=== PATIENT | female | born 1965 | race Caucasian/White ===

== ENCOUNTER 2016-05-07 03:48 | Inpatient (IN) | payer MEDICARE, OTHER ==
--- NOTE | ~2016-05-07 | PN ---
Unit #: [id number] #: [id number] Patient: SHANIKA BAEZA [id number] [facility] [address] [place] [address] [id number] MR#: [id number] NAME: SHANIKA BAEZA. ROOM: 15 Age: 50 Sex: F Admission Date: 05/07/2016 : 1965 Attending Physician: Sharath Kingsley M.D. Admitting Physician: Sharath Kingsley M.D. Primary Care Physician: Primary Care Physician Yolis DE LA VEGA PROGRESS NOTES DATE OF SERVICE 05/19/2016 DISCUSSION Ms. Shanika Baeza is a 50-year-old female seen on 05/19/2016. The patient was scheduled to be discharged today, but the patient reported that she is not able to contract for safety. The patient reported having suicidal thoughts with a plan to kill herself if discharged today. The patient's discharge was subsequently canceled. The patient unable to report any stressor. We will closely monitor the patient's mood and behavior. We will make sure that the patient is attending all the groups and stay out of her room and participate. Continue with current medication. Complete Review of Systems: Unremarkable. MENTAL STATUS EXAMINATION General Appearance: The patient dressed casually. Attention span, concentration: Fair. Oriented in place and person. Mood and affect was labile. The patient reported to racebook writer "we need to talk." Speech was rapid. Thought process: Circumstantial. Association: The patient reported having suicidal thoughts with a plan to hurt herself if discharged today. Unable to contract for safety. Denied any psychotic symptom. Recent and remote memory: Poor. Insight and judgment: Poor. DIAGNOSES 1. Major depressive disorder, recurrent, F33.2. 2. Personality disorder not otherwise specified. ASSESSMENT/PLAN Advised to continue with current programming on the inpatient unit. Recommending the patient to participate in all the programming, and we will make sure that the patient is not staying in her room during the programming hours so that she can get maximum benefit, and continue with current medication. We will give few more days, and we will make sure that the patient is not suicidal, and discharge to outpatient program. Dictated by... Sharath Kingsley M.D. SZC/bzg Unit #: [id number] #: [id number] Patient: SHANIKA BAEZA Arturo TD: 05/21/2016 08:20 JOB #: [id number] CEFERINO PROGRESS NOTES X Sharath Kingsley MD PROGRESS NOTE
--- NOTE | ~2016-05-07 | A ---
[facility] Nutrition Therapy DATE: 05/18/16 Patient: SHANIKA BAEZA Physician: CHROBYUN Address: [facility] Room/Bed: [address], Zip: [place] [address] Admit Date: 05/07/16 Date of : [birth year] Height: 5 2 Weight: [phone] NUTRITIONAL ASSESSMENT: REASON: LOS PATIENT ADMITTED FOR DEPRESSION AND SI PMH: HTN, COPD, A-FIB, DM, ASTHMA, CHF, IBS Anthropometrics: HT: 5'2", WT: 130#, BMI: 23.8, %IBW: 118 Labs: NO NEW LABS Meds: SEROQUEL, VISTARIL, NEURONTIN, DESYREL, CELEXA, ZESTRIL Assessment: CHART REVIEWED, EVENTS NOTED. PATIENT IS A 50 Y/O FEMALE ADMITTED FOR SI AND DEPRESSION. PATIENT IS CURRENTLY ON DISABILITY, STAYS IN A HOTEL, AND DENIES CURRENT SUBSTANCE ABUSE. PATIENT HAS A HX OF DIET PILLS AND METHAMPHETAMINE ABUSE. PATIENT STATED A GOOD APPETITE WITH A 10# WEIGHT LOSS X LAST SEVERAL MONTHS. WEIGHT HX PER [employer] SHOWS A STABLE WEIGHT FOR LAST 5 MONTHS, AND DOES NOT REFLECT STATED WEIGHT LOSS BY PATIENT. NURSING REPORTS CONSISTENTLY GOOD PO INTAKES. PATIENT WAS D/C'D FROM THIS FACILITY 05/06/16 AND READMITTED 05/07/16. RD ASSESSED PATIENT X4 IN LAST 3 MONTHS FOR LOS- NOTES REVIEWED. PATIENT HAS HAD MULTIPLE ADMISSIONS TO THIS FACILITY IN LAST 3 MONTHS, WITH 5 ADMISSIONS IN LAST 2 MONTHS. CURRENT PSYCH MEDS MAY CAUSE WEIGHT AND APPETITE FLUCTUATIONS. PATIENT IS ON A REGULAR DIET AND THERE ARE NO SKIN OR GI ISSUES NOTED ATT. PATIENT'S BMI IS WITHIN A HEALTHY RANGE, AND SHE IS 118% OF HER IBW. Dx: NO NUTRITION DX Intervention: 1. REGULAR DIET, 2. MEDS PER MD, 3. PSYCH Monitoring, Evaluation and Goals: 1. ADEQUATE PO INTAKES >50% OF MEALS 2. PREVENT, CORRECT MICRO/MACRO NUTRIENT DIFICIENCIES MONITOR: WEIGHTS, LABS, PO/FLUID INTAKES Recommendations: 1. CONTINUE REGULAR DIET TOLERATED 2. ENCOURAGE ADEQUATE PO AND FLUID INTAKES RD TO F/U PER PROTOCOL AND PRN R/T PATIENT NOT AT NUTRITIONAL RISK ATT [facility] DATE: 05/18/16 Patient: SHANIKA BAEZA Physician: JAYME Address: [facility] N[facility] Room/Bed: [address], Zip: [place] [address] Admit Date: 05/07/16 Date of : [birth year] Height: 5 2 Weight: [phone] Respectfully, ELIZABETH GRISSOM RD, LD [facility] cc: client file
--- NOTE | ~2016-05-07 | CO ---
Unit #: [id number] #: [id number] Patient: SHANIKA BAEZA [id number] [place] [address] [id number] MR#: [id number] NAME: SHANIKA BAEZA. ROOM: P254 Age: 50 Sex: F Admission Date: 05/07/2016 : 1965 Attending Physician: Sharath Kingsley M.D. Primary Care Physician: Primary Care Physician No Consultation Date: 05/08/2016 CONSULTATION REPORT ORDERING PROVIDER Dr. Kingsley. REASON FOR CONSULTATION Abnormal urinalysis. SUBJECTIVE The patient denies dysuria, urinary frequency, or hesitancy. She denies any hematuria, low back pain, or abdominal pain. OBJECTIVE The patient's urinalysis shows trace leukocyte esterase and 2+ blood. Her physical examination was unremarkable related to urinary tract infection. ASSESSMENT Abnormal UA. PLAN Plan is to get a urine culture and treat if necessary. Dictated by... Amparo Wilkins A.P.R.N. for Fabien Stephens/pelon TD: 05/09/2016 09:07 JOB #: [id number] CONSULTATION REPORT X AMPARO WILKINS APRN CONSULTATION REPORT
--- NOTE | ~2016-05-07 | PN ---
Unit #: [id number] #: [id number] Patient: SHANIKA BAEZA [id number] [facility] [address] [place] [address] [id number] I MR#: [id number] NAME: SHANIKA BAEZA. ROOM: P254 Age: 50 Sex: F Admission Date: 05/07/2016 : 1965 Attending Physician: Sharath Kingsley M.D. Admitting Physician: Sharath Kingsley M.D. Primary Care Physician: Primary Care Physician Yolis DE LA VEGA PROGRESS NOTES DATE 05/11/2016 DISCUSSION Ms. Shanika Baeza is a 50-year-old female seen on 05/11/2016. The patient interviewed, chart reviewed. Obtained information from nursing staff. The patient continues to endorse suicidal ideation but pleasant and cooperative. The patient was unable to contract for safety. Complete review of systems unremarkable. MENTAL STATUS EXAMINATION General appearance, the patient short statured, casually dressed. Attention span and concentration fair, poor. Oriented to place and person. Mood and affect labile. Speech poor articulation. Thought process circumstantial. The patient denied any thoughts of harming others but having suicidal ideation. Denied any plans. Guarded. Recent and remote memory poor. Insight and judgement poor. DIAGNOSES Major depressive disorder recurrent. ASSESSMENT/PLAN Advise to continue with current medication and therapeutic protocol. We will monitor response to medication and make further adjustment of medication. Dictated by... Fabien Hoskins/maryuri TD: 05/13/2016 02:07 JOB #: [id number] Unit #: [id number] #: [id number] Patient: SHANIKA BAEZA CEFERINO PROGRESS NOTES X Sharath Kingsley MD PROGRESS NOTE
--- NOTE | ~2016-05-07 | PN ---
Unit #: [id number] #: [id number] Patient: SHANIKA BAEZA [id number] [facility] [address] [place] [address] [id number] MR#: [id number] NAME: SHANIKA BAEZA. ROOM: P254 Age: 50 Sex: F Admission Date: 05/07/2016 : 1965 Attending Physician: Sharath Kingsley M.D. Admitting Physician: Sharath Kingsley M.D. Primary Care Physician: Primary Care Physician Yolis DE LA VEGA PROGRESS NOTES DATE OF SERVICE: 05/10/2016 DISCUSSION Shanika Baeza is a 50-year-old female, seen on 05/10/2016. The patient interviewed, chart reviewed, and obtained information from nursing staff. The patient was compliant and cooperative. Mood was sad, dysphoric, flat affect, but able to participate in programing. The patient reported that she is still having suicidal thoughts, unable to contract for safety. Complete review of systems unremarkable. MENTAL STATUS EXAMINATION General appearance, the patient dressed casually. Attention span and concentration, fair. Oriented in place and person. Mood and affect, sad and dysphoric. Speech, monotone. Thought process, concrete. The patient denied any thoughts of harming others, but having suicidal ideation. Denied any plan. Recent and remote memory, poor. Insight and judgment, poor. DIAGNOSIS Major depressive disorder, recurrent. ASSESSMENT AND PLAN Advised to continue with current medication and therapeutic protocol. We will monitor response to medication and make further adjustment of medication. Dictated by... Fabien Hoskins/pelon TD: 05/11/2016 12:08 JOB #: [id number] Unit #: [id number] #: [id number] Patient: SHANIKA BAEZA PROGRESS NOTES X Sharath Kingsley MD PROGRESS NOTE
--- NOTE | ~2016-05-07 | PN ---
Unit #: [id number] #: [id number] Patient: SHANIKA BAEZA [id number] [facility] [address] [place] [address] [id number] I MR#: [id number] NAME: SHANIKA BAEZA. ROOM: [facility] Age: 50 Sex: F Admission Date: 05/07/2016 : 1965 Attending Physician: Sharath Kingsley M.D. Admitting Physician: Sharath Kingsley M.D. Primary Care Physician: Primary Care Physician Yolis VIEYRA NOTES DATE OF SERVICE: 05/18/2016 DISCUSSION Shanika Baeza is a 50-year-old female, seen on 05/18/2016. The patient interviewed, chart reviewed, and obtained information from nursing staff. The patient was compliant and cooperative. The patient requested for Imodium. The patient was able to participate in activities, played in [employer]. The patient was friendly with staff, maintained safe behavior. Denied any thoughts of harming self or others. Discussed with social media campaign manager and staff about discharge plan tomorrow. The patient, according to staff report, was happy with a roommate. Complete review of systems unremarkable. MENTAL STATUS EXAMINATION General appearance, the patient dressed casually. Attention span and concentration, fair. Oriented in place and person. Mood and affect were brighter. Speech, regular rate. Thought process, goal directed. Association, the patient denied any thoughts of harming self or others or any psychotic symptom. Recent and remote memory, poor. Insight and judgment, poor. DIAGNOSIS Major depressive disorder, recurrent. ASSESSMENT AND PLAN Advised to continue with current medication and therapeutic protocol with a plan to consider discharge this week and follow up in the outpatient program. Dictated by... Fabien Hoskins/pelon TD: 05/18/2016 20:38 JOB #: [id number] Unit #: [id number] #: [id number] Patient: SHANIKA BAEZA PROGRESS NOTES X Sharath Kingsley MD PROGRESS NOTE
--- NOTE | ~2016-05-07 | PN ---
Unit #: [id number] #: [id number] Patient: SHANIKA BAEZA [id number] [facility] [address] [place] [address] [id number] MR#: [id number] NAME: SHANIKA BAEZA. ROOM: P254 Age: 50 Sex: F Admission Date: 05/07/2016 : 1965 Attending Physician: Sharath Kingsley M.D. Admitting Physician: Sharath Kingsley M.D. Primary Care Physician: Primary Care Physician Yolis DE LA VEGA PROGRESS NOTES DATE 05/16/2016 DISCUSSION Shanika Baeza is a 50-year-old female seen on 05/16/2016. Patient interviewed. Chart reviewed. Obtained information from nursing staff. Patient was compliant, cooperative but reported that having suicidal thoughts. Mood labile. Complete review of system unremarkable. MENTAL STATUS EXAMINATION General appearance, patient dressed casually. Attention span, concentration fair. Oriented in place and person. Mood and affect was sad, dysphoric. Speech monotone. Thought process concrete. Patient denied any thoughts of harming others but having suicidal thoughts. Recent and remote memory poor. Insight and judgement poor. DIAGNOSIS Major depressive disorder, recurrent. ASSESSMENT/PLAN Advised to continue with current medication and therapeutic protocol. Will monitor response to medication and make further adjustment of medication. Dictated by... Fabien Hoskins/miri TD: 05/18/2016 20:28 JOB #: [id number] Unit #: [id number] #: [id number] Patient: SHANIKA BAEZA CEFERINO PROGRESS NOTES X Sharath Kingsley MD PROGRESS NOTE
--- NOTE | ~2016-05-07 | PA ---
Unit #: [id number] #: [id number] Patient: SHANIKA BAEZA [id number] [facility] [address] [place] [address] [id number] MR#: [id number] NAME: SHANIKA BAEZA. ROOM: [facility] Age: 50 Sex: F Admission Date: 05/07/2016 : 1965 Date of Assessment: Attending Physician: Sharath Kingsley M.D. Admitting Physician: Sharath Kingsley M.D. PSYCHIATRIC ASSESSMENT DATE OF SERVICE 05/07/2016. INFORMANTS The patient reliability, fair; chart reliability, good. CHIEF COMPLAINT Suicidal ideation. HISTORY OF PRESENT ILLNESS Ms. Shanika Heck is a 50-year-old female, well known to us from her previous admission, discharged yesterday and readmitted due to suicidal thoughts, unable to contract for safety, the patient reported having weakness, depression and anxiety. The patient reported numerous stressors, reports that she does not feel safe, unable to be maintained safe. If discharged, therefore the patient needed inpatient admission at this time for psychiatric stabilization. PAST PSYCHIATRIC HISTORY Remarkable for history of [facility] at [facility], 04/03, 04/14, and 04/26. FAMILY HISTORY AND SOCIAL HISTORY The patient has a poor support system. No history of any abuse. History of substance abuse in last year, currently homeless and financial problem. MEDICAL HISTORY Remarkable for history of blood clot treated in the hospital earlier, history of congestive heart failure, hypertension, diabetes, irritable bowel syndrome, COPD, irregular heartbeat. Musculoskeletal; muscle strength and tone, no atrophy, but abnormal movement. Gait abnormal. MEDICATION HISTORY The patient is on Desyrel, Celexa, Cardizem, Vistaril, Zestril, Micronase, Proventil. ALLERGIES No known drug allergies. SUBSTANCE ABUSE HISTORY History of abuse of diet pills and methamphetamine in the past. REVIEW OF SYSTEMS Unit #: [id number] #: [id number] Patient: SHANIKA BAEZA HEENT: Eyes, clear. Ears, nose, mouth, and throat; clear. CARDIOVASCULAR: Unremarkable. RESPIRATORY: Unremarkable. GI: Unremarkable. : Unremarkable. SKIN: Unremarkable. LYMPH NODE: Unremarkable. NEUROLOGIC: Unremarkable. ENDOCRINE: Unremarkable. HEMATOLOGIC: Unremarkable. ALLERGIC/IMMUNOLOGIC: Unremarkable. MUSCULOSKELETAL: Muscle strength and tone, no atrophy or abnormal movement. Gait abnormal. MENTAL STATUS EXAMINATION CONSTITUTIONAL: Measurement of vital signs: Temperature 98.4, pulse 102, respirations 18, blood pressure 140/80, and height 5 feet 2 inches. GENERAL APPEARANCE: The patient dressed casually. No facial deformity noted. MUSCULOSKELETAL: Please see above. PSYCHIATRIC EXAMINATION Description of speech; slow and regular rate. Thought process, circumstantial. Description of association, guarded, reported suicidal ideation, denied any homicidal ideation, guarded. Description of the patient's judgment, concerning everyday activity, poor. Social situation, poor. Concerning psychiatric condition, poor. Complete mental status examination; oriented in time, place, and person. Recent and remote memory, poor. Attention span and concentration, poor. Language, able to name object, repeat phrases. Fund of knowledge, fair. Mood and affect, sad and dysphoric. Insight and judgment, fair to poor. ASSETS AND LIABILITIES Assets, the patient is articulate and able to take care of her ADL. Liability; history of depression. ADMITTING DIAGNOSES Psychiatric: 1. Major depressive disorder, recurrent, severe. 2. History of methamphetamine abuse, moderate. 3. Anxiety disorder, not otherwise specified. Secondary diagnosis: Deferred. Medical diagnosis: Please refer to H and P. Stressors: Psychosocial stressors. PSYCHIATRIC PLAN AND TREATMENT GOAL AND DISCHARGE PLAN 1. Advised to admit the patient on the inpatient unit. Provide safe, supportive, and structured environment. 2. Advised to resume her medications. The patient to be monitored closely in group therapy, individual therapy, and plan to cut back on medication such as discontinue Seroquel and Desyrel. We will closely monitor the patient to attend all the programing on the inpatient unit. Treatment goal; to attain euthymic mood, gain insight into her problem, and learn coping skills. Unit #: [id number] #: [id number] Patient: SHANIKA BAEZA DISCHARGE PLAN Plan to stabilize the patient and consider followup in outpatient program. ESTIMATED LENGTH OF STAY 5 to 7 days. Dictated by... Sharath Kingsley M.D. SUZY/pelon TD: 05/07/2016 20:35 JOB #: [id number] PSYCHIATRIC ASSESSMENT X Sharath Kingsley MD PSYCHIATRIC ASSESSMENT
--- NOTE | ~2016-05-07 | HP ---
Unit #: [id number] #: [id number] Patient: SHANIKA BAEZA [id number] [facility] [address] [place] [address] [id number] MR#: [id number] NAME: SHANIKA BAEZA. ROOM: P254 Age: 50 Sex: F Admission Date: 05/07/2016 : 1965 Attending Physician: Sharath Kingsley M.D. Admitting Physician: Sharath Kingsley M.D. Primary Care Physician: Primary Care Physician No HISTORY AND PHYSICAL The patient is a 50-year-old female admitted to [address] [place] [address] on 05/07/2016 for suicidal ideations. The patient had a recent admission on 04/26/2016 where a full history and physical was completed. That history and physical has been reviewed. No changes need to be made. Dictated by... Jen Blair/maryuri TD: 05/08/2016 23:14 JOB #: [id number] HISTORY AND PHYSICAL X JUANCARLOS MARTINES APRN X HISTORY AND PHYSICAL
--- NOTE | ~2016-05-07 | DS ---
Unit #: [id number] #: [id number] Patient: SHANIKA BAEZA [id number] [facility] [address] [place] [address] [id number] MR#: [id number] NAME: SHANIKA BAEZA. ROOM: [facility] Age: 50 Sex: F Admission Date: 05/07/2016 : 1965 Discharge Date: 05/20/2016 Attending Physician: Sharath Kingsley M.D. Primary Care Physician: Primary Care Physician No DISCHARGE SUMMARY REASON FOR ADMISSION Depression, suicidal ideation. DIAGNOSTIC STUDIES LABORATORY RESULTS: Unremarkable. HOSPITAL COURSE The patient was admitted to inpatient unit on 05/07/2016 and discharged on 05/20/2016. The patient was cooperative, attentive in the program, directive, but manipulative. The patient denied any thoughts of harming self or others, but when she was ready to be discharged, the patient started making comments that she will hurt herself when tried to discharge several times but subsequently the patient made those comments. The patient was transferred to a different unit on . The patient reported that she is doing fine, denied any suicidal or homicidal ideation and agreed to be discharged. The patient reports "I need to go and rest at [facility] The patient referred to [facility] for aftercare plan. DISCHARGE MEDICATIONS Seroquel 50 mg at bedtime for sleep, Neurontin 100 mg t.i.d. for anxiety, Vistaril 25 mg t.i.d. for anxiety, lisinopril 20 mg daily for hypertension, Cardizem CD 120 mg daily for hypertension, Celexa 40 mg daily for depression, DiaBeta 2.5 mg daily for diabetes. DISCHARGE DIAGNOSES Psychiatric: Major depressive disorder, recurrent, severe; history of methamphetamine abuse, moderate; anxiety disorder, not otherwise specified. Secondary diagnosis: Deferred. Medical diagnosis: Please refer to H and P. Stressors: Psychosocial stressors. DISCHARGE INSTRUCTIONS The patient to follow up in outpatient clinic as per social media marketer. CONDITION ON DISCHARGE The patient was pleasant and cooperative. Denied any psychotic symptom or any suicidal ideation. PROGNOSIS Unit #: [id number] #: [id number] Patient: SHANIKA BAEZA Guarded. DIET AND ACTIVITY As tolerated. Dictated by... Sharath Kingsley M.D. [facility]/pelon TD: 05/22/2016 01:54 JOB #: [id number] DISCHARGE SUMMARY X Sharath Kingsley MD DISCHARGE SUMMARY
--- NOTE | ~2016-05-07 | PN ---
Unit #: [id number] #: [id number] Patient: SHANIKA BEAZA [id number] [facility] [address] [place] [address] [id number] MR#: [id number] NAME: SHANIKA BAEZA. ROOM: P254 Age: 50 Sex: F Admission Date: 05/07/2016 : 1965 Attending Physician: Sharath Kingsley M.D. Admitting Physician: Sharath Kingsley M.D. Primary Care Physician: Primary Care Physician Yolis VIEYRA NOTES DATE 05/08/2016 DISCUSSION Shanika Baeza is a 50-year-old female, seen on 05/08/2016. The patient interviewed, chart reviewed, and obtained information from the nursing staff. The patient was compliant and cooperative. Mood sad and dysphoric, flat affect. The patient reported still having suicidal thoughts. No side effects from medications. REVIEW OF SYSTEMS Complete review of systems unremarkable. MENTAL STATUS EXAMINATION General appearance: Patient casually dressed. Attention span and concentration, poor. Oriented to place and person. Mood and affect, labile. Speech, poor articulation. Thought process, circumstantial. Association, the patient reported having suicidal ideation, denied any homicidal ideation, denied any psychotic symptoms but guarded. Recent and remote memory, poor. Insight and judgment, poor. DIAGNOSIS Major depressive disorder. ASSESSMENT/PLAN Advised to continue with the current medication and therapeutic protocol and will monitor response to medication, and make further adjustment of medication. Dictated by... Fabien Hoskins/abram TD: 05/10/2016 12:01 JOB #: [id number] Unit #: [id number] #: [id number] Patient: SHANIKA BAEZA CEFERINO PROGRESS NOTES X Sharath Kingsley MD PROGRESS NOTE
--- NOTE | ~2016-05-07 | PN ---
Unit #: [id number] #: [id number] Patient: SHANIKA BAEZA [id number] [facility] [address] [place] [address] [id number] MR#: [id number] NAME: SHANIKA BAEZA. ROOM: P254 Age: 50 Sex: F Admission Date: 05/07/2016 : 1965 Attending Physician: Sharath Kingsley M.D. Admitting Physician: Sharath Kingsley M.D. Primary Care Physician: Primary Care Physician Yolis VIEYRA NOTES DATE 05/09/2016 DISCUSSION Ms. Shanika Baeza is a 50-year-old female, seen on 05/09/2016. The patient interviewed, chart reviewed, and obtained information from the nursing staff. The patient was compliant and cooperative. Mood sad and dysphoric, flat affect. The patient reported still having suicidal thoughts, unable to contract for safety. Vital signs, stable, temperature 97.6, pulse 98, and blood pressure 137/65. REVIEW OF SYSTEMS Complete review of systems unremarkable. MENTAL STATUS EXAMINATION General appearance: Patient short stature, casually dressed. Attention span and concentration, fair. Oriented to place and person. Mood and affect, sad and dysphoric, and anxious. Speech, rapid, poor articulation. Thought process, circumstantial. Association, the patient denied any thoughts of harming others but having suicidal ideations, passive, no plans, somewhat guarded. Recent and remote memory, poor. Insight and judgment, poor. DIAGNOSIS Major depressive disorder, recurrent. ASSESSMENT/PLAN Advised to continue with the current medication and therapeutic protocol and will monitor response to medication, and make further adjustment of medication. Dictated by... Fabien Hoskins/abram TD: 05/11/2016 10:34 JOB #: [id number] Unit #: [id number] #: [id number] Patient: SHANIKA BAEZA PROGRESS NOTES X Sharath Kingsley MD PROGRESS NOTE
--- NOTE | ~2016-05-07 | PN ---
Unit #: [id number] #: [id number] Patient: SHANIKA BAEZA [id number] [facility] [address] [place] [address] [id number] MR#: [id number] NAME: SHANIKA BAEZA. ROOM: P254 Age: 50 Sex: F Admission Date: 05/07/2016 : 1965 Attending Physician: Sharath Kingsley M.D. Admitting Physician: Sharath Kingsley M.D. Primary Care Physician: Primary Care Physician Yolis DE LA VEGA PROGRESS NOTES DATE OF SERVICE: 05/15/2016 DISCUSSION Shanika Baeza is a 50-year-old female, seen on 05/15/2016. The patient interviewed, chart reviewed, and obtained information from nursing staff. The patient was compliant and cooperative. Mood was sad, dysphoric, flat affect, still having suicidal ideation. Complete review of systems unremarkable. MENTAL STATUS EXAMINATION General appearance; the patient dressed casually, short stature. Attention span and concentration, fair. Oriented in place and person. Mood and affect; sad, dysphoric, flat. Speech; monotone, poor articulation. Thought process, circumstantial. Association, the patient reported having suicidal ideation. Denied any homicidal ideation or any hallucination. Recent and remote memory, poor. Insight and judgment, poor. DIAGNOSIS Major depressive disorder, recurrent. ASSESSMENT AND PLAN Advised to continue with current medication and therapeutic protocol. We will monitor response to medication and make further adjustment of medication. Dictated by... Fabien Hoskins/pelon TD: 05/16/2016 19:22 JOB #: [id number] Unit #: [id number] #: [id number] Patient: SHANIKA BAEZA CEFERINO PROGRESS NOTES X Sharath Kingsley MD X PROGRESS NOTE
--- NOTE | ~2016-05-07 | PN ---
Unit #: [id number] #: [id number] Patient: SHANIKA BAEZA [id number] [facility] [address] [place] [address] [id number] I MR#: [id number] NAME: SHANIKA BAEZA. ROOM: [facility] Age: 50 Sex: F Admission Date: 05/07/2016 : 1965 Attending Physician: Sharath Kingsley M.D. Admitting Physician: Sharath Kingsley M.D. Primary Care Physician: Primary Care Physician No [facility] PROGRESS NOTES DATE OF SERVICE 05/17/2016 DISCUSSION Shanika Baeza is a 50-year-old female seen on 05/17/2016. The patient interviewed, chart reviewed. Obtained information from nursing staff. The patient reports still feeling sad, depressed, but able to contract for safety. The patient still having passive SI but no active suicidal ideation. Vital Signs: 98.4, 91, 130/76. The patient was isolative, guarded, flat affect. Complete Review of Systems: Unremarkable. MENTAL STATUS EXAMINATION General Appearance: The patient dressed casually. Attention span, concentration: Fair. Oriented in place and person. Mood and affect: Sad, dysphoric, flat, withdrawn, isolative. Speech: Monotone. Thought process: [place]. The patient reported passive SI, but denied any homicidal ideation. Guarded. Recent and remote memory: Poor. Insight and judgment: Poor. DIAGNOSIS Major depressive disorder, recurrent. ASSESSMENT/PLAN Advised to continue with current medication and therapeutic protocol. We will monitor response to medication and make further adjustment of medication. Dictated by... Fabien Hoskins/jose ramon TD: 05/19/2016 07:23 JOB #: [id number] Unit #: [id number] #: [id number] Patient: SHANIKA BAEZACE PROGRESS NOTES X Sharath Kingsley MD PROGRESS NOTE
--- NOTE | ~2016-05-07 | PN ---
Unit #: [id number] #: [id number] Patient: SHANIKA BAEZA [id number] [facility] [address] [place] [address] [id number] MR#: [id number] NAME: SHANIKA BAEZA. ROOM: P254 Age: 50 Sex: F Admission Date: 05/07/2016 : 1965 Attending Physician: Sharath Kingsley M.D. Admitting Physician: Sharath Kingsley M.D. Primary Care Physician: Primary Care Physician Yolis DE LA VEGA PROGRESS NOTES DATE OF SERVICE 05/12/2016 DISCUSSION Mr. Shanika Baeza is a 50-year-old female seen on 05/12/2016. The patient interviewed, chart reviewed. Obtained information from nursing staff. The patient continues to report having suicidal thoughts. Unable to contract for safety. The patient, although compliant, cooperative on the unit. Reports sleeping better with the medication. Complete Review of Systems: Unremarkable. MENTAL STATUS EXAMINATION General Appearance: The patient dressed casually. Attention span, concentration: Poor. Oriented in place and person. Mood and affect labile. Speech: Poor articulation. Thought process: Circumstantial. Association: Guarded. Having suicidal ideation, but denied any homicidal ideation. Denied any psychotic symptom. Recent and remote memory: Poor. Insight and judgment: Poor. DIAGNOSIS Major depressive disorder, recurrent, severe. ASSESSMENT/PLAN Advised to continue with current medication and therapeutic protocol. We will monitor response to medication and make further adjustment of medication. Dictated by... Fabien Hoskins/jose ramon TD: 05/14/2016 13:31 JOB #: [id number] Unit #: [id number] #: [id number] Patient: SHANIKA BAEZA PROGRESS NOTES X Sharath Kingsley MD PROGRESS NOTE
--- NOTE | ~2016-05-07 | PN ---
Unit #: [id number] #: [id number] Patient: SHANIKA BAEZA [id number] [facility] [address] [place] [address] [id number] I MR#: [id number] NAME: SHANIKA BAEZA. ROOM: P254 Age: 50 Sex: F Admission Date: 05/07/2016 : 1965 Attending Physician: Sharath Kingsley M.D. Admitting Physician: Sharath Kingsley M.D. Primary Care Physician: Primary Care Physician Yolis DE LA VEGA PROGRESS NOTES DATE OF SERVICE: 05/14/2016 DISCUSSION Shanika Baeza is a 50-year-old female, seen on 05/14/2016. The patient interviewed, chart reviewed, and obtained information from nursing staff. The patient was compliant and cooperative. Mood was sad and dysphoric, flat affect. The patient reported that she is still having suicidal thoughts and unable to contract for safety. REVIEW OF SYSTEMS Complete review of systems unremarkable. MENTAL STATUS EXAMINATION General appearance, the patient dressed casually. Attention span and concentration, fair. Oriented in place and person. Mood and affect were sad and dysphoric. Speech, regular rate. Thought process, goal directed. The patient denied any thoughts of harming others, but somewhat guarded, paranoid with suicidal ideation, but unable to contract for safety if discharged today. Recent and remote memory, poor. Insight and judgment, poor. DIAGNOSIS Major depressive disorder, recurrent. ASSESSMENT AND PLAN Advised to continue with current medication and therapeutic protocol. We will monitor response to medication and make further adjustment of medication. Dictated by... Fabien Hoskins/pelon TD: 05/17/2016 06:30 JOB #: [id number] Unit #: [id number] #: [id number] Patient: SHANIKA BAEZA PROGRESS NOTES X Sharath Kingsley MD PROGRESS NOTE
--- NOTE | ~2016-05-07 | PN ---
Unit #: [id number] #: [id number] Patient: SHANIKA BAEZA [id number] [facility] [address] [place] [address] [id number] I MR#: [id number] NAME: SHANIKA BAEZA. ROOM: P254 Age: 50 Sex: F Admission Date: 05/07/2016 : 1965 Attending Physician: Sharath Kingsley M.D. Admitting Physician: Sharath Kingsley M.D. Primary Care Physician: Primary Care Physician Yolis DE LA VEGA PROGRESS NOTES DATE 05/13/2016 DISCUSSION Shanika Baeza is a 50-year-old female seen on 05/13/2016. Patient interviewed, chart reviewed; obtained information from nursing staff. The patient was compliant, cooperative. Mood sad, dysphoric, flat affect. The patient reported having suicidal ideation. Guarded, but maintained safe behavior. Participating in programming. Vital signs stable, 97.8, 89, respiration 18, blood pressure 110/80. Complete review of systems unremarkable. MENTAL STATUS EXAMINATION General appearance: Patient dressed casually. Attention span and concentration fair. Oriented in place and person. Mood and affect sad/dysphoric. Speech monotone. Thought processes concrete. Patient denied any thoughts of harming self or others, but having suicidal ideation, not able to contract for safety discharged today. Recent and remote memory poor. Insight and judgment poor. DIAGNOSIS Major depressive disorder ASSESSMENT/PLAN Advised to continue with the current medication and therapy protocol. We will monitor response to medication and make further adjustment of medication if needed. Dictated by... Fabien Hoskins/ezequiel TD: 05/15/2016 09:37 JOB #: [id number] Unit #: [id number] #: [id number] Patient: SHANIKA BAEZA PROGRESS NOTES X Sharath Kingsley MD PROGRESS NOTE
[~2016-05-07 03:48] MED LIST: CARDIZEM CD120 M1 PO; CELEXA20 M1 PO; LISINOPRIL20 MG PO; MAALOX SUSPENS355 ML PO; MICRONASE5 M2 PO; MILK OF MAGNESIA PO; MOTRIN400 M1 PO; PROVENTIL0.83 MG/ML INH; SEROQUEL50 M1 PO; TYLENOL325 M1 PO; VISTARIL PO
[2016-05-11 10:03] LABS: URINE APPEARANCE CLOUDY; URINE BILIRUBIN NEG (NEG); URINE BLOOD 1+ (NEG); URINE COLOR YELLOW; URINE GLUCOSE NEG (NEG); URINE KETONE NEG (NEG); URINE LEUKOCYTE ESTERASE 1+ (NEG); URINE NITRATE NEG (NEG); URINE PH 5.5 (5-8); URINE PROTEIN NEG (NEG); URINE SPECIFIC GRAVITY 1.023 (1.003-1.035); URINE UROBILINOGEN 0.2 MG/DL (NEG)
[2016-05-11 10:06] LABS: CULTURE INDICATED? YES; URINE BACTERIA AUWI NEG (NEGATIVE); URINE SQUAMOUS EPITHELIAL CELL MOD /[HPF]
[2016-05-11 10:38] LABS: URINE MUCUS PRESENT
== END 2016-05-20 13:10 | disposition home or self-care (01) | DRG 885 ==
LOC: P2L 03:48 → P1S 05-19 16:06
PROVIDERS: Psychiatry & Neurology Psychiatry
PROC: 3E0234Z Introduction of Serum, Toxoid and Vaccine into Muscle, Percutaneous Approach (ICD-10-PCS; principal; 2016-05-07)
DX: F33.2 Major depressive disorder, recurrent severe without psychotic features (principal); N39.0 Urinary tract infection, site not specified; F41.9 Anxiety disorder, unspecified; F60.9 Personality disorder, unspecified; Z23 Encounter for immunization
CPT/HCPCS: 81003; 87086; 90688; 90732

== ENCOUNTER 2016-05-25 13:43 | Inpatient (IN) | payer MEDICARE, OTHER ==
--- NOTE | ~2016-05-25 | PN ---
Unit #: [id number] #: [id number] Patient: SHANIKA BAEZA [id number] [facility] [address] [place] [address] [id number] I MR#: [id number] NAME: SHANIKA BAEZA. ROOM: 13 Age: 50 Sex: F Admission Date: 05/25/2016 : 1965 Attending Physician: Sharath Kingsley M.D. Admitting Physician: Sharath Kingsley M.D. Primary Care Physician: Primary Care Physician Yolis DE LA VEGA PROGRESS NOTES DATE 06/09/2016 DISCUSSION Shanika Baeza is a 10-year-old female, seen on 06/09/2016. The patient interviewed, chart reviewed, and obtained information from the nursing staff. The patient was compliant and cooperative. Mood sad and dysphoric. The patient reported still having suicidal ideation, unable to contract for safety. Vital signs stable, 98.4, 96, 16, and 130/67. The patient tolerating medications fairly well. No side effects from medication. Mood sad, dysphoric, isolative, guarded. REVIEW OF SYSTEMS Complete review of systems unremarkable. MENTAL STATUS EXAMINATION General appearance: Patient dressed casually. Attention span and concentration, fair. Oriented to place and person. Mood and affect, sad and dysphoric. Speech, monotone. Thought process, concrete. The patient denied any thoughts of harming others but having suicidal ideation, unable to contract for safety. She was discharged today, guarded, isolative. Recent and remote memory, poor. Insight and judgment, poor. DIAGNOSIS Major depressive disorder, recurrent. ASSESSMENT/PLAN Advised to continue with the current medication and therapeutic protocol and will monitor response to medication, and make further adjustment of medication. Dictated by... Sharath Kingsley M.D. Unit #: [id number] #: [id number] Patient: SHANIKA BAEZA SUZY/abram TD: 06/10/2016 10:10 JOB #: [id number] CEFER[facility] PROGRESS NOTES Page 1 of 1 X Sharath Kingsley MD PROGRESS NOTE
--- NOTE | ~2016-05-25 | PN ---
Unit #: [id number] #: [id number] Patient: SHANIKA BAEZA [id number] [facility] [address] [place] [address] [id number] I MR#: [id number] NAME: SHANIKA BAEZA. ROOM: 13 Age: 50 Sex: F Admission Date: 05/25/2016 : 1965 Attending Physician: Sharath Kingsley M.D. Admitting Physician: Sharath Kingsley M.D. Primary Care Physician: Primary Care Physician Yolis DE LA VEGA PROGRESS NOTES DATE OF SERVICE: 05/27/2016 DISCUSSION Ms. Shanika Baeza is a 50-year-old female, seen on 05/27/2016. The patient interviewed, chart reviewed, and obtained information from nursing staff. The patient reported still feeling sad, depressed, and suicidal, unable to contract for safety. REVIEW OF SYSTEMS Complete review of systems unremarkable. MENTAL STATUS EXAMINATION General appearance, the patient dressed casually. Vital signs stable; temperature 98.4, heart rate 93, and blood pressure 149/75. Attention span and concentration, poor. Oriented in place and person. Mood and affect; sad, dysphoric, withdrawn, and isolative. Speech, slow. Thought process, circumstantial. Reported having suicidal thoughts, denied any plan. Able to contract for safety on the unit. Guarded. Recent and remote memory, poor. Insight and judgment, poor. DIAGNOSIS Major depressive disorder, recurrent. ASSESSMENT/PLAN Advised to continue with current medication and therapeutic protocol. We will monitor response to medication and make further adjustment of medication. Dictated by... Fabien Hoskins/pelon TD: 05/28/2016 14:48 JOB #: [id number] Unit #: [id number] #: [id number] Patient: SHANIKA BAEZA PROGRESS NOTES X Sharath Kingsley MD PROGRESS NOTE
--- NOTE | ~2016-05-25 | PN ---
Unit #: [id number] #: [id number] Patient: SHANIKA BAEZA [id number] [facility] [address] [place] [address] [id number] MR#: [id number] NAME: SHANIKA BAEZA. ROOM: 13 Age: 50 Sex: F Admission Date: 05/25/2016 : 1965 Attending Physician: Sharath Kingsley M.D. Admitting Physician: Sharath Kingsley M.D. Primary Care Physician: Primary Care Physician Yolis DE LA VEGA PROGRESS NOTES DATE OF SERVICE: 05/28/2016 DISCUSSION Shanika Baeza is a 50-year-old female, seen on 05/28/2016. The patient interviewed, chart reviewed, and obtained information from nursing staff. The patient reported that she is not feeling well, withdrawn, isolative, flat affect, but still feeling sad, depressed, having suicidal ideation, but denied any plan. REVIEW OF SYSTEMS Complete review of systems unremarkable. MENTAL STATUS EXAMINATION General appearance; the patient is dressed casually. Attention span and concentration, fair. Oriented in place and person. Mood and affect, sad, depressed, withdrawn. Speech, monotone. Thought process, concrete. The patient denied any homicidal ideation, but having suicidal ideation, denied any plan. Guarded, withdrawn, isolative. Recent and remote memory, poor. Insight and judgment, poor. DIAGNOSIS Bipolar mood disorder, not otherwise specified. ASSESSMENT AND PLAN Advised to continue with current medication and therapeutic protocol. We will monitor response to medication and make further adjustment of medication. Dictated by... Fabien Hoskins/pelon TD: 05/30/2016 01:50 JOB #: [id number] Unit #: [id number] #: [id number] Patient: SHANIKA BAEZA PEASHANNA PROGRESS NOTES X Sharath Kingsley MD PROGRESS NOTE
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
--- NOTE | ~2016-05-25 | PN ---
Unit #: [id number] #: [id number] Patient: SHANIKA BAEZA [id number] [facility] [address] [place] [address] [id number] MR#: [id number] NAME: SHANIKA BAEZA. ROOM: 13 Age: 50 Sex: F Admission Date: 05/25/2016 : 1965 Attending Physician: Sharath Kingsley M.D. Admitting Physician: Sharath Kingsley M.D. Primary Care Physician: Primary Care Physician Ylois DE LA VEGA PROGRESS NOTES DATE 06/15/2016 DISCUSSION Shanika Baeza is a 50-year-old female seen on 06/15/2016. Patient interviewed, chart reviewed, obtained information from nursing staff. The patient was compliant, cooperative, redirectable, but seclusive, isolative, guarded. Patient reports eating good, sleeping good, but still having problem with anxiety, unable to contract for safety if discharged today. The patient denied any psychotic symptoms, denied any plans. Complete review of systems unremarkable. MENTAL STATUS EXAMINATION General appearance: Patient dressed casually. Attention span and concentration fair. Oriented in time, place and person. Mood and affect sad/dysphoric, flat. Speech monotone. Thought processes concrete. Patient denied any thoughts of harming others, but still having suicidal ideation, unable contract for safety and guarded. Denied any plan. Recent and remote memory poor. Insight and judgment poor. DIAGNOSIS Major depressive disorder, recurrent, severe ASSESSMENT/PLAN Advised to continue with the current medication and therapy protocol. If needed, consider adding a second antidepressant or increasing the dosage of Celexa. Dictated by... Fabien Hoskins/ezequiel TD: 06/19/2016 09:25 JOB #: [id number] Unit #: [id number] #: [id number] Patient: SHANIKA BAEZA PROGRESS NOTES Page 1 of 1 X Sharath Kingsley MD PROGRESS NOTE
--- NOTE | ~2016-05-25 | CO ---
Unit #: [id number] #: [id number] Patient: SHANIKA BAEZA [id number] [place] [address] [id number] MR#: [id number] NAME: SHANIKA BAEZA. ROOM: 13 Age: 50 Sex: F Admission Date: 05/25/2016 : 1965 Attending Physician: Sharath Kingsley M.D. Primary Care Physician: Primary Care Physician No Consultation Date: 05/25/2016 CONSULTATION REPORT SUBJECTIVE Shanika is a 50-year-old who had complained of some "UTI symptoms." When I spoke with her, she had no complaints of urgency, frequency, or dysuria. Urinalysis on admission was negative for bacteria, mgd-pwdlshsb-hx-count wbc's, and 25 to 50 rbc's. ASSESSMENT Most likely contaminated urine. PLAN Recollect. Increase fluids. Dictated by... Laura Calixto P.A.-C. for Fabien Stephens/pelon TD: 05/28/2016 02:44 JOB #: [id number] CONSULTATION REPORT X Laura Calixto X CONSULTATION REPORT
--- NOTE | ~2016-05-25 | PN ---
Unit #: [id number] #: [id number] Patient: SHANIKA BAEZA [id number] [facility] [address] [place] [address] [id number] MR#: [id number] NAME: SHANIKA BAEZA. ROOM: [facility] Age: 50 Sex: F Admission Date: 05/25/2016 : 1965 Attending Physician: Sharath Kingsley M.D. Admitting Physician: Sharath Kingsley M.D. Primary Care Physician: Primary Care Physician Yolis VIEYRA NOTES DATE OF SERVICE 06/01/2016 DISCUSSION Shanika Baeza is a 50-year-old female seen on 06/01/2016. The patient interviewed, chart reviewed. Obtained information from nursing staff. The patient was compliant, cooperative. Mood sad, dysphoric, flat affect, withdrawn, isolative, guarded. The patient reported having problem with cough. Vital Signs: Stable, 97.8, 85, 14, 126/75. Complete Review of Systems: Unremarkable. MENTAL STATUS EXAMINATION General Appearance: The patient dressed casually. Isolative, guarded. The patient oriented in place and person. Mood and affect: Sad, depressed. Speech: Monotone. Thought process: [place]. The patient reported having suicidal ideation, guarded. Recent and remote memory: Poor. Insight and judgment: Poor. DIAGNOSIS Major depressive disorder, recurrent. ASSESSMENT/PLAN Advised to continue with the inpatient programming as the patient is still having suicidal ideation. Continue with current treatment. If needed, consider change of medication. Dictated by... Fabien Hoskins/jose ramon TD: 06/02/2016 12:18 JOB #: [id number] Unit #: [id number] #: [id number] Patient: SHANIKA BAEZASHANNA PROGRESS NOTES X Sharath Kingsley MD PROGRESS NOTE
--- NOTE | ~2016-05-25 | CO ---
Unit #: [id number] #: [id number] Patient: SHANIKA BAEZA [id number] [place] [address] [id number] MR#: [id number] NAME: SHANIKA BAEZA. ROOM: 13 Age: 50 Sex: F Admission Date: 05/25/2016 : 1965 Attending Physician: Sharath Kingsley M.D. Primary Care Physician: Primary Care Physician No Consultation Date: 06/02/2016 CONSULTATION REPORT SUBJECTIVE Shanika is a 50-year-old who had complained a nursing staff that she was having some chest congestion. She denies any cough, shortness of breath, and there have been no recorded increased temperatures. We have been asked to assess and give recommendations. OBJECTIVE GENERAL: Alert, obese, in no apparent distress. VITAL SIGNS: Blood pressure 120/60, heart rate 80, respirations 16, T-max 98.6, weight 130, and height 5 feet 2 inches. HEENT: Within normal limits. CHEST: Lungs clear. No cough noted. ASSESSMENT Normal exam. PLAN No Rx. Dictated by... Laura Calixto P.A.-C. for Fabien Stephens/pelon TD: 06/09/2016 03:16 JOB #: [id number] CONSULTATION REPORT Page 1 of 1 X Laura Calixto X CONSULTATION REPORT
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
--- NOTE | ~2016-05-25 | PN ---
Unit #: [id number] #: [id number] Patient: SHANIKA BAEZA [id number] [facility] [address] [place] [address] [id number] MR#: [id number] NAME: SHANIKA BAEZA. ROOM: 13 Age: 50 Sex: F Admission Date: 05/25/2016 : 1965 Attending Physician: Sharath Kingsley M.D. Admitting Physician: Sharath Kingsley M.D. Primary Care Physician: Primary Care Physician Yolis VIEYRA NOTES DATE OF SERVICE: 06/12/2016 DISCUSSION Ms. Shanika Baeza is a 50-year-old female, seen on 06/12/2016. The patient reported having suicidal ideation, unable to out for safety today. Vital signs; temperature 98.4, pulse 81, respirations 20, blood pressure 114/60. The patient compliant with medication, still seclusive, isolative, guarded, but able to take care of her ADLs. REVIEW OF SYSTEMS Complete review of systems is unremarkable. MENTAL STATUS EXAMINATION General appearance, the patient dressed casually. Attention span and concentration, fair. Oriented in place and person. Mood and affect were labile, anxious, nervous. Speech, monotone. Thought process, concrete. The patient denied any thoughts of harming others, but having suicidal ideation, unable to contract for safety. Recent and remote memory, poor. Insight and judgment, poor. DIAGNOSIS Major depressive disorder, recurrent. ASSESSMENT AND PLAN Advised to continue with current medication and therapeutic protocol. We will monitor response to medication and make further adjustment of medication. Dictated by... Fabien Hoskins/pelon TD: 06/14/2016 06:17 JOB #: [id number] Unit #: [id number] #: [id number] Patient: SHANIKA BAEZA SKIPSHANNA PROGRESS NOTES Page 1 of 1 X Sharath Kingsley MD PROGRESS NOTE
--- NOTE | ~2016-05-25 | PN ---
Unit #: [id number] #: [id number] Patient: SHANIKA BAEZA [id number] [facility] [address] [place] [address] [id number] MR#: [id number] NAME: SHANIKA BAEZA. ROOM: Count Includes [facility] Age: 50 Sex: F Admission Date: 05/25/2016 : 1965 Attending Physician: Sharath Kingsley M.D. Admitting Physician: Sharath Kingsley M.D. Primary Care Physician: Primary Care Physician Yolis VIEYRA NOTES DATE OF SERVICE: 05/31/2016 DISCUSSION Shanika Baeza is a 50-year-old female, seen on 05/31/2016. The patient interviewed, chart reviewed, and obtained information from nursing staff. The patient was compliant and cooperative. Mood was sad, dysphoric, withdrawn. The patient reported having suicidal ideation, still feeling sad and depressed. The patient reported that she would like to be transferred to a different unit, [address] [place] [address]. Complete review of systems unremarkable. MENTAL STATUS EXAMINATION General appearance, the patient dressed casually. Attention span and concentration, fair. Oriented in place and person. Mood and affect; sad, dysphoric, flat. Reported having suicidal ideation, withdrawn, isolative, guarded. Recent and remote memory, poor. Insight and judgment, poor. DIAGNOSIS Major depressive disorder, recurrent. ASSESSMENT AND PLAN Advised to continue with current medication and therapeutic protocol. Ordered UA as the patient is reporting having symptoms of urinary tract infection. Also ordered medical consultation for evaluation and treatment. We will continue to follow. Please feel free to call if any question. Dictated by... Fabien Hoskins/pelon TD: 05/31/2016 15:14 JOB #: [id number] Unit #: [id number] #: [id number] Patient: SHANIKA BAEZA AZALIA NOTES X Sharath Kingsley MD PROGRESS NOTE
--- NOTE | ~2016-05-25 | PN ---
Unit #: [id number] #: [id number] Patient: SHANIKA BAEZA [id number] [facility] [address] [place] [address] [id number] I MR#: [id number] NAME: SHANIKA BAEZA. ROOM: P113 Age: 50 Sex: F Admission Date: 05/25/2016 : 1965 Attending Physician: Sharath Kingsley M.D. Admitting Physician: Sharath Kingsley M.D. Primary Care Physician: Primary Care Physician Yolis DE LA VEGA PROGRESS NOTES DATE 06/08/2016 DISCUSSION Ms. Shanika Baeza is a 50-year-old female seen on 06/08/2016. Patient reported still having suicidal ideation. Patient reported feeling suicidal. Denied any plan. Anxious, nervous but able to participate in group. Compliant with medication. No side effects from medication. Complete review of system unremarkable. MENTAL STATUS EXAMINATION General appearance, patient dressed casually. Attention span, concentration fair. Oriented in place and person. Mood and affect labile. Speech monotone. Thought process concrete. Patient denied any thoughts of harming others but having suicidal ideation. Denied any plan, guarded, isolative. Recent and remote memory poor. Insight and judgement poor. DIAGNOSIS Major depressive disorder, recurrent. ASSESSMENT/PLAN Advised to continue with current medication and therapeutic protocol. Will monitor response to medication and make further adjustment of medication. Dictated by... Fabien Hoskins/miri TD: 06/09/2016 21:13 JOB #: [id number] Unit #: [id number] #: [id number] Patient: SHANIKA BAEZA PROGRESS NOTES Page 1 of 1 X Sharath Kingsley MD PROGRESS NOTE
--- NOTE | ~2016-05-25 | PN ---
Unit #: [id number] #: [id number] Patient: SHANIKA BAEZA [id number] [facility] [address] [place] [address] [id number] MR#: [id number] NAME: SHANIKA BAEZA. ROOM: 13 Age: 50 Sex: F Admission Date: 05/25/2016 : 1965 Attending Physician: Sharath Kingsley M.D. Admitting Physician: Sharath Kingsley M.D. Primary Care Physician: Primary Care Physician Yolis DE LA VEGA PROGRESS NOTES DATE 05/26/2016 DISCUSSION Ms. Shanika Baeza is a 50-year-old female seen on 05/26/2016. Patient interviewed. Chart reviewed. Obtained information from nursing staff. Patient compliant, cooperative. Mood sad, dysphoric, flat affect, withdrawn, isolative, guarded. Patient requested for Motrin and trazodone. Patient denied any suicidal ideation at this time but sad, depressed, withdrawn but when asked about discharge, patient reported that she is unable to contract for safety. Complete review of system unremarkable. MENTAL STATUS EXAMINATION General appearance, patient dressed casually. Attention span, concentration fair. Oriented in place and person. Mood and affect sad, dysphoric. Speech monotone. Thought process concrete. Patient reported having suicidal ideation. Unable to contract for safety. Denied any psychotic symptoms. Recent and remote memory poor. Insight and judgement poor. DIAGNOSIS Major depressive disorder, recurrent. ASSESSMENT/PLAN Advised to continue with current medication and therapeutic protocol. Will monitor response to medication and make further adjustment of medication. Dictated by... Fabien Hoskins/miri TD: 05/27/2016 17:55 JOB #: [id number] Unit #: [id number] #: [id number] Patient: SHANIKA BAEZA PROGRESS NOTES X Sharath Kingsley MD PROGRESS NOTE
--- NOTE | ~2016-05-25 | PN ---
Unit #: [id number] #: [id number] Patient: SHANIKA BAEZA [id number] [facility] [address] [place] [address] [id number] I MR#: [id number] NAME: SHANIKA BAEZA. ROOM: [facility] Age: 50 Sex: F Admission Date: 05/25/2016 : 1965 Attending Physician: Sharath Kingsley M.D. Admitting Physician: Sharath Kingsley M.D. Primary Care Physician: Primary Care Physician Yolis VIEYRA NOTES DATE OF SERVICE: 06/04/2016 DISCUSSION Shanika Baeza is a 50-year-old female, seen on 06/04/2016. The patient interviewed, chart reviewed, and obtained information from nursing staff. The patient was compliant and cooperative. Mood, sad and dysphoric. Flat affect, guarded. The patient reported having suicidal ideation, but denied any plans. Vital signs; temperature 98.8, heart rate 90, respiratory rate 20, and blood pressure 130/80. The patient was somewhat guarded, withdrawn, and isolative. REVIEW OF SYSTEMS Complete review of systems unremarkable. MENTAL STATUS EXAMINATION General appearance, the patient dressed casually. Attention span and concentration, fair. Oriented in place and person. Mood and affect, sad and depressed. Speech, monotone. Thought process, concrete. The patient denied any thoughts of harming self or others or any psychotic symptom. Recent and remote memory, poor. Insight and judgment, poor. DIAGNOSIS Major depressive disorder, recurrent. ASSESSMENT AND PLAN Advised to continue with current medication and therapeutic protocol. We will monitor response to medication and make further adjustment of medication. Dictated by... Fabien Hoskins/pelon TD: 06/04/2016 19:09 JOB #: [id number] Unit #: [id number] #: [id number] Patient: SHANIKA BAEZA CEFERINO VIEYRA NOTES X Sharath Kingsley MD PROGRESS NOTE
--- NOTE | ~2016-05-25 | PN ---
Unit #: [id number] #: [id number] Patient: SHANIKA BAEZA [id number] [facility] [address] [place] [address] [id number] MR#: [id number] NAME: SHANIKA BAEZA. ROOM: P113 Age: 50 Sex: F Admission Date: 05/25/2016 : 1965 Attending Physician: Sharath Kingsley M.D. Admitting Physician: Sharath Kingsley M.D. Primary Care Physician: Primary Care Physician Yolis DE LA VEGA PROGRESS NOTES DATE 06/18/2016 DISCUSSION Ms. Shanika Beaza is a 50-year-old female seen on 06/18/2016. Patient interviewed. Chart reviewed. Obtained information from nursing staff. Patient was sad, dysphoric, flat affect, withdrawn but able to contract for safety but still reports that she is not quite ready and would like to go on Monday. Patient was able to contract for safety in the hospital but still not able to contract for safety if discharged today. Patient has a history of multiple admission. Therefore, we would like to make sure patient is stable. Vital signs 97.2, 92, 134/82. Complete review of system unremarkable. MENTAL STATUS EXAMINATION General appearance, patient dressed casually. Attention span, concentration fair. Oriented in place and person. Mood and affect sad, dysphoric. Speech monotone. Thought process concrete. Patient reported having passive SI but denied any plan. Denied any homicidal ideation, psychotic symptoms. Recent and remote memory poor. Insight and judgement poor. DIAGNOSIS Major depressive disorder, recurrent. ASSESSMENT/PLAN Advised to continue with current medication and therapeutic protocol. Will monitor response to medication and make further adjustment of medication. Dictated by... Fabien Hoskins/miri TD: 06/21/2016 16:41 JOB #: [id number] Unit #: [id number] #: [id number] Patient: SHANIKA BAEZA PROGRESS NOTES Page 1 of 1 X Sharath Kingsley MD PROGRESS NOTE
--- NOTE | ~2016-05-25 | PN ---
Unit #: [id number] #: [id number] Patient: SHANIKA BAEZA [id number] [facility] [address] [place] [address] [id number] I MR#: [id number] NAME: SHANIKA BAEZA. ROOM: 13 Age: 50 Sex: F Admission Date: 05/25/2016 : 1965 Attending Physician: Sharath Kingsley M.D. Admitting Physician: Sharath Kingsley M.D. Primary Care Physician: Primary Care Physician Yolis DE LA VEGA PROGRESS NOTES DATE 05/30/2016 DISCUSSION Ms. Shanika Baeza is a 50-year-old female seen on 05/30/2016. Patient interviewed. Chart reviewed. Obtained information from nursing staff. Patient was compliant, cooperative. Mood sad, dysphoric, flat, isolative, guarded. Patient's vital signs 97.5, 88, 112/69. Patient reported still having suicidal ideation, withdrawn, isolative. Complete review of system unremarkable. MENTAL STATUS EXAMINATION General appearance, patient dressed casually. Attention span, concentration fair. Oriented in time, place and person. Mood and affect was sad, dysphoric, flat. Speech monotone. Thought process concrete. Patient denied any thoughts of harming self or others but guarded. Recent and remote memory poor. Insight and judgement poor. DIAGNOSIS Major depressive disorder, recurrent. ASSESSMENT/PLAN Advised to continue with current medication and therapeutic protocol. Will monitor response to medication and make further adjustment of medication. Dictated by... Fabien Hoskins/miri TD: 05/31/2016 20:15 JOB #: [id number] Unit #: [id number] #: [id number] Patient: SHANIKA BAEZA PROGRESS NOTES X Sharath Kingsley MD PROGRESS NOTE
--- NOTE | ~2016-05-25 | PN ---
Unit #: [id number] #: [id number] Patient: SHANIKA BAEZA [id number] [facility] [address] [place] [address] [id number] MR#: [id number] NAME: SHANIKA BAEZA. ROOM: 13 Age: 50 Sex: F Admission Date: 05/25/2016 : 1965 Attending Physician: Sharath Kingsley M.D. Admitting Physician: Sharath Kingsley M.D. Primary Care Physician: Primary Care Physician Yolis DE LA VEGA PROGRESS NOTES DATE OF SERVICE: 06/05/2016 DISCUSSION Ms. Shanika Baeza is a 50-year-old female, seen on 06/05/2016. The patient interviewed, chart reviewed, and obtained information from nursing staff. The patient continues to be seclusive, isolative, guarded. Reported feeling sad and depressed, having suicidal ideation. The patient reported not feeling well. Complete review of systems unremarkable. Vital signs; temperature 98.0, pulse 90, respirations 20, and blood pressure 130/80. MENTAL STATUS EXAMINATION General appearance, the patient dressed casually. Attention span and concentration, fair. Attention span and concentration, poor. Oriented in place and person. Mood and affect; sad, depressed. Speech, monotone. Thought process, concrete. Association; the patient reported having suicidal ideation, guarded, isolative. Recent and remote memory, poor. Insight and judgment, poor. DIAGNOSIS Major depressive disorder, recurrent. ASSESSMENT AND PLAN Advised to continue with current medication and therapeutic protocol. We will monitor response to medication and make further adjustment of medication. Dictated by... Fabien Hoskins/pelon TD: 06/06/2016 11:52 JOB #: [id number] Unit #: [id number] #: [id number] Patient: SHANIKA BAEZA PROGRESS NOTES X Sharath Kingsley MD PROGRESS NOTE
--- NOTE | ~2016-05-25 | PN ---
Unit #: [id number] #: [id number] Patient: SHANIKA BAEZA [id number] [facility] [address] [place] [address] [id number] MR#: [id number] NAME: SHANIKA BAEZA. ROOM: 13 Age: 50 Sex: F Admission Date: 05/25/2016 : 1965 Attending Physician: Sharath Kingsley M.D. Admitting Physician: Sharath Kingsley M.D. Primary Care Physician: Primary Care Physician Yolis DE LA VEGA PROGRESS NOTES DATE 06/10/2016 DISCUSSION Ms. Shanika Baeza is a 50-year-old female seen on 06/10/2016. Patient interviewed. Chart reviewed. Obtained information from nursing staff. Patient continues to report having suicidal thoughts, withdrawn, isolative, flat affect. Patient denied any plans but reported still having suicidal thoughts. Patient was able to participate in some of the groups but still seclusive, isolative, guarded, minimal interaction. Able to take care of her ADL. Complete review of system unremarkable. MENTAL STATUS EXAMINATION Patient dressed casually. Attention and concentration is fair. Oriented in place and person. Mood and affect sad, dysphoric. Speech monotone. Thought process concrete. Patient reported having suicidal ideation. Denied any plan. Denied any homicidal ideation, guarded. Recent and remote memory poor. Insight and judgement poor. DIAGNOSIS Major depressive disorder, recurrent. ASSESSMENT/PLAN Advised to continue with current medication. If needed, plan to consider further adjustment of medication. Dictated by... Fabien Hoskins/miri TD: 06/11/2016 22:00 JOB #: [id number] Unit #: [id number] #: [id number] Patient: SHANIKA BAEZA PROGRESS NOTES Page 1 of 1 X Sharath Kingsley MD PROGRESS NOTE
--- NOTE | ~2016-05-25 | PN ---
Unit #: [id number] #: [id number] Patient: SHANIKA BAEZA [id number] [facility] [address] [place] [address] [id number] MR#: [id number] NAME: SHANIKA BAEZA. ROOM: 13 Age: 50 Sex: F Admission Date: 05/25/2016 : 1965 Attending Physician: Sharath Kingsley M.D. Admitting Physician: Fabien Hoskins PROGRESS NOTES DATE OF SERVICE: 06/19/2016 DISCUSSION Ms. Shabazz is a 50-year-old female, seen on 06/19/2016. The patient interviewed, chart reviewed, and obtained information from nursing staff. The patient was compliant, cooperative. Mood was sad, dysphoric, somewhat anxious about leaving program. Plan to consider discharge tomorrow, able to maintain safe behavior. The patient denied any complaints. REVIEW OF SYSTEMS Complete review of systems unremarkable. MENTAL STATUS EXAMINATION General appearance, the patient dressed casually. Attention span and concentration, fair. Oriented in time, place, and person. Mood and affect were sad and dysphoric. Speech, monotone. Thought process, concrete. The patient denied any thoughts of harming self or others or any psychotic symptom. Recent and remote memory, poor. Insight and judgment, poor. DIAGNOSIS Major depressive disorder, recurrent. ASSESSMENT AND PLAN Advised to continue with current medication and therapeutic protocol with a plan to consider discharge on Monday. Dictated by... Fabien Hoskins/pelon TD: 06/21/2016 00:53 JOB #: [id number] Unit #: [id number] #: [id number] Patient: SHANIKA BAEZA PROGRESS NOTES Page 1 of 1 X Sharath Kingsley MD PROGRESS NOTE
--- NOTE | ~2016-05-25 | PN ---
Unit #: [id number] #: [id number] Patient: SHANIKA BAEZA [id number] [facility] [address] [place] [address] [id number] MR#: [id number] NAME: SHANIKA BAEZA. ROOM: [facility] Age: 50 Sex: F Admission Date: 05/25/2016 : 1965 Attending Physician: Sharath Kingsley M.D. Admitting Physician: Sharath Kingsley M.D. Primary Care Physician: Primary Care Physician Yolis DE LA VEGA PROGRESS NOTES DATE 06/16/2016 DISCUSSION Ms. Shanika Baeza is a 50-year-old female seen on 06/16/2016. The patient interviewed, chart reviewed. Obtained information from nursing staff. The patient was compliant and cooperative. Mood sad, dysphoric, flat affect. The patient was unable to contract for safety still reported having suicidal ideation but maintain safe behavior. The patient wanted to speak with the nursing home social worker to discuss about discharge plan. Also complete review of systems unremarkable. MENTAL STATUS EXAMINATION General appearance, the patient dressed casually. Attention span and concentration fair. Oriented to place and person. Mood and affect sad, dysphoric. Speech monotone. Thought process concrete. The patient denied any thoughts of harming others but having suicidal ideation but unable to contract for safety on the inpatient unit. Denied any psychotic symptoms. Recent and remote memory fair. Insight and judgement fair. DIAGNOSES Major depressive disorder recurrent. ASSESSMENT/PLAN Advise to continue with current medication and therapeutic protocol. We will monitor the patient's mood and behavior. If needed consider further adjustment of medication. Dictated by... Fabien Hoskins/maryuri TD: 06/20/2016 23:40 JOB #: [id number] Unit #: [id number] #: [id number] Patient: SHANIKA BAEZA PROGRESS NOTES Page 1 of 1 X Sharath Kingsley MD PROGRESS NOTE
--- NOTE | ~2016-05-25 | PN ---
Unit #: [id number] #: [id number] Patient: SHANIKA BAEZA [id number] [facility] [address] [place] [address] [id number] MR#: [id number] NAME: SHANIKA BAEZA. ROOM: 13 Age: 50 Sex: F Admission Date: 05/25/2016 : 1965 Attending Physician: Sharath Kingsley M.D. Admitting Physician: Sharath Kingsley M.D. Primary Care Physician: Primary Care Physician Yolis DE LA VEGA PROGRESS NOTES DATE 06/06/2016 DISCUSSION Shanika Baeza is a 50-year-old female seen on 06/06/2016. The patient interviewed, chart reviewed. Obtained information from nursing staff. The patient was compliant and cooperative. Mood sad, dysphoric, flat affect. The patient reported still having suicidal ideation. The patient denied any side effects from medication. Complete review of systems unremarkable. MENTAL STATUS EXAMINATION General appearance, the patient dressed casually. Attention span and concentration fair. Oriented to place and person. Mood and affect sad, depressed. Speech monotone. Thought process concrete. The patient denied any thoughts of harming others but having suicidal ideation, guarded. Recent and remote memory poor. Insight and judgement poor. DIAGNOSES Major depressive disorder recurrent. ASSESSMENT/PLAN Advise to continue with current medication and therapeutic protocol. We will monitor response to medication and make further adjustment of medication. Dictated by... Fabien Hoskins/maryuri TD: 06/07/2016 23:30 JOB #: [id number] Unit #: [id number] #: [id number] Patient: SHANIKA BAEZA PROGRESS NOTES Page 1 of 1 X Sharath Kingsley MD PROGRESS NOTE
--- NOTE | ~2016-05-25 | HP ---
Unit #: [id number] #: [id number] Patient: SHANIKA BAEZA [id number] [place] [address] [id number] MR#: [id number] NAME: SHANIKA BAEZA. ROOM: 13 Age: 50 Sex: F Admission Date: 05/25/2016 : 1965 Attending Physician: Sharath Kingsley M.D. Admitting Physician: Sharath Kingsley M.D. Primary Care Physician: Primary Care Physician No HISTORY AND PHYSICAL HISTORY OF PRESENT ILLNESS Shanika is a 50 year old admitted to [address] [place] [address] with depression and verbalizing wanting to hurt herself. PAST MEDICAL HISTORY 1. Morbid obesity 2. High blood pressure 3. COPD 4. History of atrial fib 5. Diabetes mellitus 6. Asthma PAST SURGICAL HISTORY Cholecystectomy ALLERGIES Erythromycin, sulfa, omeprazole. SOCIAL HISTORY She denies cigarettes, alcohol and illicit drug use. FAMILY HISTORY Medically noncontributory. REVIEW OF SYSTEMS CONSTITUTIONAL: No fever or chills. HEENT: Denies any sore throat, ear pain or runny nose. CARDIOVASCULAR: Denies chest pain, irregular heart rhythm or palpitations. CHEST: Denies shortness of breath or cough. No hemoptysis. GASTROINTESTINAL: Denies nausea, vomiting, diarrhea or chronic constipation. ENDOCRINE: Denies history of increased thirst or urination. No recent significant weight loss or gain. GENITOURINARY: Denies dysuria, frequency, or hematuria. SKIN: Denies any rashes. HEMATOLOGIC: Denies history of increased bleeding or bruising. MUSCULOSKELETAL: Denies any hot, swollen joints. No generalized muscle pain. NEUROLOGIC: Denies problems with vision or speech. No frequent, severe headaches. No numbness, tingling or weakness in any extremities. Denies loss of bladder or bowel control. Unit #: [id number] #: [id number] Patient: SHANIKA BAEZA CURRENT MEDICATIONS 1. Desyrel 50 mg q.h.s. 2. Seroquel 50 mg q.h.s. 3. Neurontin 100 mg b.i.d. 4. Vistaril 25 mg t.i.d. 5. Milk of Magnesia p.r.n. 6. Maalox p.r.n. 7. Tylenol p.r.n. 8. Celexa 40 mg daily 9. Cardizem CD 120 mg daily 10. Zestril 20 mg daily 11. Micronase 2.5 mg q.a.m. PHYSICAL EXAMINATION GENERAL: Alert, morbidly obese, in no apparent distress. VITAL SIGNS: Blood pressure 164/82, heart rate 80, respirations 16, temperature 98.6. WEIGHT: 130 pounds. HEIGHT: 5'2". SKIN: Warm and dry without rash or lesion. HEENT: Normocephalic. TMs not viewed. Oral and nasal passages clear. Conjunctivae clear. Pupils equal, round and reactive to light and accommodation. Extraocular movements intact. NECK: Supple without lymphadenopathy or thyromegaly. HEART: Regular rate and rhythm without murmur. LUNGS: Clear. ABDOMEN: Soft, nontender. : Not done. EXTREMITIES: No evidence of cyanosis, clubbing or edema. Moves all extremities without focal deficit. NEUROLOGICAL: Grossly within normal limits. Cranial Nerves: II: Visual bobo are intact. III, IV AND : Extraocular movements are intact. Pupils are equal, round and reactive to light. V: Facial sensation is grossly normal. VII: Facial movements and expression are normal. VIII: Auditory acuity grossly intact. IX, X: Uvula is midline. Phonation is normal. XI: Patient shrugs shoulders and turns head normally. XII: Tongue protrudes in the midline. Sensory and Motor Function: Sensory and motor sensation is grossly normal. Motor: moves all extremities well. Coordination: Gait is normal. Deep Tendon Reflexes: Intact. IMPRESSION Psychiatric admission RECOMMENDATIONS PSYCHIATRIC: Per psychiatrist. MEDICAL: I see no contraindications to participating in facility's activities. MEDICAL PROGNOSIS Good. MEDICAL CONDITION Stable. Unit #: [id number] #: [id number] Patient: SHANIKA BAEZA Dictated by... Laura Calixto P.A.-C. for Fabien Stephens/maryuri TD: 05/26/2016 02:27 JOB #: [id number] HISTORY AND PHYSICAL X Laura Calixto X HISTORY AND PHYSICAL
--- NOTE | ~2016-05-25 | PN ---
Unit #: [id number] #: [id number] Patient: SHANIKA BAEZA [id number] [facility] [address] [place] [address] [id number] MR#: [id number] NAME: SHANIKA BAEZA. ROOM: [facility] Age: 50 Sex: F Admission Date: 05/25/2016 : 1965 Attending Physician: Sharath Kingsley M.D. Admitting Physician: Sharath Kingsley M.D. Primary Care Physician: Primary Care Physician Yolis DE LA VEGA PROGRESS NOTES DATE 06/02/2016 DISCUSSION Shanika Baeza is a 50-year-old female. Patient interviewed. Chart reviewed. Obtained information from nursing staff. Patient was compliant, cooperative. Mood sad, dysphoric, flat affect, anxious. Patient reported having problem with the breathing, feeling congested. Patient reported also has a history of congestive heart failure. Mood sad, depressed. Reported feeling sad, depressed, feeling of hopelessness, suicidal thoughts. Complete review of system unremarkable. MENTAL STATUS EXAMINATION General appearance, patient dressed casually. Attention span, concentration fair. Oriented in time, place and person. Mood and affect was sad, dysphoric. Speech monotone. Thought process concrete. Patient denied any thoughts of harming self or others or any psychotic symptoms. Recent and remote memory poor. Insight and judgement poor. DIAGNOSES 1. Mood disorder NOS. 2. Major depressive disorder, recurrent. ASSESSMENT/PLAN Advised to continue with current medication and also order medical consultation. Patient is still having suicidal ideation. Therefore, continue with the inpatient programming. Dictated by... Fabien Hoskins/miri TD: 06/03/2016 18:17 JOB #: [id number] Unit #: [id number] #: [id number] Patient: SHANIKA BAEZA PROGRESS NOTES X Sharath Kingsley MD PROGRESS NOTE
--- NOTE | ~2016-05-25 | DS ---
Unit #: [id number] #: [id number] Patient: SHANIKA BAEZA [id number] [facility] [address] [place] [address] [id number] I MR#: [id number] NAME: SHANIKA BAEZA. ROOM: [facility] Age: 50 Sex: F Admission Date: 05/25/2016 : 1965 Discharge Date: 06/20/2016 Attending Physician: Sharath Kingsley M.D. DISCHARGE SUMMARY REASON FOR ADMISSION Depression. DIAGNOSTIC STUDIES LABORATORY RESULTS: Remarkable for glucose 187, creatinine 0.5. Hemoglobin 10.5. HOSPITAL COURSE The patient was admitted to inpatient unit on 05/25/2016 and discharged on 06/20/2016. The patient during her stay was unable to contract for safety. Reported having suicidal thoughts; therefore, she continued with the inpatient treatment and unable to discharge. The patient was able to participate and treated with expressive therapy, medication management, psychotherapy, pastoral care, psychoeducation, and medication management. The patient received maximum benefit. Subsequently, the patient was discharged with a plan to follow up in outpatient program. The patient at the time of discharge denied any suicidal or homicidal ideation. Denied any psychotic symptom. DISCHARGE MEDICATIONS Celexa 40 mg daily for mood symptom, glyburide 2.5 mg before breakfast for diabetes, Desyrel 50 mg at bedtime for sleep, Seroquel 50 mg at bedtime for mood stabilization, Neurontin 100 mg t.i.d. for anxiety, Vistaril 25 mg t.i.d. for anxiety, Zestril 20 mg daily for hypertension, Cardizem CD 120 mg daily for hypertension. DISCHARGE DIAGNOSES Psychiatric: Major depressive disorder, recurrent, severe, F33.2; anxiety disorder, not otherwise specified, F41.9. Secondary diagnosis: Deferred. Medical diagnoses: High blood pressure, chronic obstructive pulmonary disease, history of atrial fibrillation, diabetes, asthma. Stressors: Psychosocial stressors. DISCHARGE INSTRUCTIONS The patient to follow up in outpatient clinic as per mental health social worker. CONDITION ON DISCHARGE The patient was pleasant and cooperative. Denied any psychotic symptom or any suicidal ideation. Unit #: [id number] #: [id number] Patient: SHANIKA BAEZA PROGNOSIS Guarded. DIET AND ACTIVITY As tolerated. Dictated by... Sharath Kingsley M.D. SZC/pelon TD: 06/21/2016 01:53 JOB #: [id number] DISCHARGE SUMMARY Page 1 of 1 X Sharath Kingsley MD DISCHARGE SUMMARY
--- NOTE | ~2016-05-25 | PA ---
Unit #: [id number] #: [id number] Patient: SHANIKA BAEZA [id number] [facility] [address] [place] [address] [id number] I MR#: [id number] NAME: SHANIKA BAEZA. ROOM: [facility] Age: 50 Sex: F Admission Date: 05/25/2016 : 1965 Date of Assessment: 05/26/2016 Attending Physician: Sharath Kingsley M.D. Admitting Physician: Sharath Kingsley M.D. Primary Care Physician: Primary Care Physician No PSYCHIATRIC ASSESSMENT INFORMANTS The patient reliability, fair; chart reliability, good. CHIEF COMPLAINT Depression and suicidal ideation. HISTORY OF PRESENT ILLNESS Ms. Shanika Baeza is a 50-year-old female well known to us from her previous admission on 05/07/2016. The patient admitted with increase in depression, suicidal ideation and unable to contract for safety. The patient reports that she has not been taking her medication in the last week since discharge. The patient reported that she has been staying in [address] [facility] for the last week and stated that she feels nerves are getting bad and she needed inpatient treatment. The patient reported suicidal ideation, unable to contract for safety. Subsequently, the patient was admitted for the inpatient treatment. PAST PSYCHIATRIC HISTORY Remarkable for history of multiple admission in the past on 03/24/2016, 04/03/2016, 04/14/2016, 04/26/2016, and 05/07/2016. FAMILY HISTORY AND SOCIAL HISTORY The patient has a poor support system. No history of any abuse. History of substance abuse last year. Currently homeless and financial problem. MEDICAL HISTORY Remarkable for history of blood clots, treated in the hospital earlier, history of congestive heart failure, hypertension, diabetes mellitus, irritable bowel syndrome, chronic obstructive pulmonary disease, irregular heartbeat. Musculoskeletal; muscle strength and tone, no atrophy or abnormal movement. Gait normal. MEDICATION HISTORY The patient is on Desyrel, Celexa, Cardizem, Vistaril, Micronase, Zestril, and Proventil. ALLERGIES No known drug allergies. SUBSTANCE ABUSE HISTORY None at this time. REVIEW OF SYSTEMS Unit #: [id number] #: [id number] Patient: SHANIKA BAEZA HEENT: Eyes, clear. Ears, nose, mouth, and throat; clear. CARDIOVASCULAR: Unremarkable. RESPIRATORY: Unremarkable. GI: Unremarkable. : Unremarkable. SKIN: Unremarkable. LYMPH NODE: Unremarkable. NEUROLOGIC: Unremarkable. ENDOCRINE: Unremarkable. HEMATOLOGIC: Unremarkable. ALLERGIC/IMMUNOLOGIC: Unremarkable. MUSCULOSKELETAL: Muscle strength and tone, no atrophy or abnormal movement. Gait abnormal. Also noticed abnormal hand movement. MENTAL STATUS EXAMINATION CONSTITUTIONAL: Measurement of vital signs; temperature is 97.1, pulse of 105, respirations 18, and blood pressure 152/89, height 5 feet 2 inches, weight is 130 pounds. GENERAL APPEARANCE: The patient dressed casually. The patient did not show any facial deformity. MUSCULOSKELETAL: Please see above. PSYCHIATRIC EXAMINATION Description of speech; slow in rate and volume spontaneous. Description of thought process, circumstantial. Description of association, intact. The patient denied any hallucination, but reported suicidal ideation. Denied any homicidal ideation. Denied any substance abuse. Description of the patient's judgment, concerning everyday activity, poor. Social situation, poor. Concerning psychiatric condition, poor. Complete mental status examination; oriented in time, place, and person. Recent and remote memory, fair. Attention span and concentration, fair. Language, able to name object, repeat phrases. Fund of knowledge, fair. Insight and judgment, fair to poor. ASSETS AND LIABILITIES Assets; the patient is articulate, able to take care of her ADL. Liability; history of depression. ADMITTING DIAGNOSES Psychiatric: Major depressive disorder, recurrent, severe, F33.2; anxiety disorder, not otherwise specified, F41.9. Secondary diagnosis: Deferred. Medical diagnosis: Please refer to H and P. Stressors: Psychosocial stressor. PSYCHIATRIC PLAN, TREATMENT GOAL, AND DISCHARGE PLAN 1. Advised to admit the patient on the inpatient unit. Provide safe, supportive, and structured environment. 2. Ordered labs; UA and UDS. 3. The patient to resume her medication Desyrel 50 mg at bedtime, Motrin 600 mg t.i.d., Seroquel 50 mg at bedtime, Neurontin 100 mg t.i.d., Vistaril 25 mg t.i.d., Celexa 40 mg daily, Cardizem CD 120 mg daily, Zestril 20 mg daily, and Micronase 2.5 mg in the morning. The patient to attend all the programing on the inpatient unit. Unit #: [id number] #: [id number] Patient: SHANIKA BAEZA 4. Treatment goal; to attain euthymic mood, gain insight into her problem, and learn coping skills. 5. Discharge plan; plan to stabilize the patient and consider followup in outpatient program. ESTIMATED LENGTH OF STAY 5 to 7 days. Dictated by... Fabien Hoskins/pelon TD: 05/27/2016 02:21 JOB #: [id number] PSYCHIATRIC ASSESSMENT X Sharath Kingsley MD PSYCHIATRIC ASSESSMENT
--- NOTE | ~2016-05-25 | PN ---
Unit #: [id number] #: [id number] Patient: SHANIKA BAEZA [id number] [facility] [address] [place] [address] [id number] I MR#: [id number] NAME: SHANIKA BAEZA. ROOM: [facility] Age: 50 Sex: F Admission Date: 05/25/2016 : 1965 Attending Physician: Sharath Kingsley M.D. Admitting Physician: Sharath Kingsley M.D. Primary Care Physician: Yolis Primary Care Physician CEFERINO PROGRESS NOTES DATE OF SERVICE 06/13/2016 DISCUSSION Shanika Baeza is a 50-year-old female seen on 06/13/2016. Patient dressed casually. Able to participate in program, but mood sad, dysphoric. Flat affect. Patient was unable to contract for safety. Reported still having suicidal ideations . REVIEW OF SYSTEMS Complete review of systems unremarkable. MENTAL STATUS EXAMINATION GENERAL APPEARANCE: Patient dressed casually. ATTENTION SPAN AND CONCENTRATION: Fair. ORIENTATION: Oriented in place and person. MOOD AND AFFECT: Labile. SPEECH: Monotone. THOUGHT PROCESS: [place]. ASSOCIATION: Patient denied any thoughts of harming self or others or any psychotic symptoms. RECENT AND REMOTE MEMORY: Poor. INSIGHT AND JUDGEMENT: Poor. DIAGNOSES Major depressive disorder, recurrent. ASSESSMENT/PLAN Advised to continue with current medication and therapeutic protocol. Will monitor response to medication and make further adjustment of medication. Dictated by... Fabien Hoskins/anisha TD: 06/15/2016 14:31 JOB #: [id number] Unit #: [id number] #: [id number] Patient: SHANIKA BAEZA PROGRESS NOTES Page 1 of 1 X Sharath Kingsley MD X PROGRESS NOTE
--- NOTE | ~2016-05-25 | PN ---
Unit #: [id number] #: [id number] Patient: SHANIKA BAEZA [id number] [facility] [address] [place] [address] [id number] I MR#: [id number] NAME: SHANIKA BAEZA. ROOM: 13 Age: 50 Sex: F Admission Date: 05/25/2016 : 1965 Attending Physician: Sharath Kingsley M.D. Admitting Physician: Sharath Kingsley M.D. Primary Care Physician: Primary Care Physician Yolis DE LA VEGA PROGRESS NOTES DATE OF SERVICE: 06/03/2016 DISCUSSION Ms. Shanika Baeza is a 50-year-old female, seen on 06/03/2016. The patient interviewed, chart reviewed, and obtained information from nursing staff. The patient continues to report having suicidal ideation, but participating in program. The patient reported having trouble breathing yesterday. Therefore, medical consult was ordered. The patient's vital signs; temperature 98.1, pulse 101, respirations 20, blood pressure 112/72. No side effects from medication. REVIEW OF SYSTEMS Complete review of systems unremarkable. MENTAL STATUS EXAMINATION General appearance, the patient dressed casually. Attention span and concentration, fair. Mood and affect were labile, sad and depressed. Speech, monotone. Thought process, concrete. The patient reported having suicidal ideation, denied any plan, but denied any homicidal ideation, guarded. Recent and remote memory, poor. Insight and judgment, poor. DIAGNOSIS Major depressive disorder, recurrent, severe. ASSESSMENT AND PLAN Advised to continue with current medication and therapeutic protocol. Advised to follow up with medical doctor to evaluate the patient's respiratory status as the patient also has a history of CHF. We will closely follow. Continue with the inpatient programing. Dictated by... Fabien Hoskins/bisil TD: 06/04/2016 05:09 JOB #: [id number] Unit #: [id number] #: [id number] Patient: SHANIKA BAEZA CEFERINO PROGRESS NOTES X Sharath Kingsley MD PROGRESS NOTE
--- NOTE | ~2016-05-25 | PN ---
Unit #: [id number] #: [id number] Patient: SHANIKA BAEZA [id number] [facility] [address] [place] [address] [id number] I MR#: [id number] NAME: SHANIKA BAEZA. ROOM: 13 Age: 50 Sex: F Admission Date: 05/25/2016 : 1965 Attending Physician: Sharath Kingsley M.D. Admitting Physician: Sharath Kingsley M.D. Primary Care Physician: Primary Care Physician Yolis VIEYRA NOTES DATE 06/07/2016 DISCUSSION Ms. Shanika Baeza is a 50-year-old female, seen on 06/07/2016. The patient interviewed, chart reviewed, and obtained information from the nursing staff. The patient was compliant and cooperative. Mood sad and dysphoric. The patient reported still having suicidal ideation, unable to control for safety, if discharged today. The patient denied any other complaints. She is taking her medications, sleeping good. REVIEW OF SYSTEMS Complete review of systems unremarkable. MENTAL STATUS EXAMINATION General appearance: Patient short stature, casually dressed, and walked slowly. Made good eye contact. Attention span and concentration, fair. Oriented to place and person. Mood and affect, labile. Speech, regular rate. Thought process, goal-directed. Association, the patient denied any thoughts of harming others but suicidal ideation, nonspecific, unable to contract for safety if discharged today, guarded and paranoid. Recent and remote memory, poor. Insight and judgment, poor. DIAGNOSIS Major depressive disorder, recurrent. ASSESSMENT/PLAN Advised to continue with the current medication and therapeutic protocol and will monitor response to medication, and make further adjustment of medication. Dictated by... Fabien Hoskins/abram TD: 06/08/2016 10:21 JOB #: [id number] Unit #: [id number] #: [id number] Patient: SHANIKA BAEZA AZALIA NOTES Page 1 of 1 X Sharath Kingsley MD PROGRESS NOTE
--- NOTE | ~2016-05-25 | CO ---
Unit #: [id number] #: [id number] Patient: SHANIKA BAEZA [id number] [place] [address] [id number] MR#: [id number] NAME: SHANIKA BAEZA. ROOM: 13 Age: 50 Sex: F Admission Date: 05/25/2016 : 1965 Attending Physician: Sharath Kingsley M.D. Primary Care Physician: Primary Care Physician No Consultation Date: 05/31/2016 CONSULTATION REPORT HISTORY OF PRESENT ILLNESS Shanika is a 50-year-old who complained of some burning with urination. Urinalysis from 05/25/2016 showed too numerous to count wbc's and 25 to 50 rbc's. She has had no recorded increased temperatures. PLAN Start Macrobid 1 p.o. b.i.d. x7 days. Dictated by... Laura Calixto P.A.-C. for Fabien Stephens/pelon TD: 06/01/2016 17:50 JOB #: [id number] CONSULTATION REPORT X Laura Calixto CONSULTATION REPORT
--- NOTE | ~2016-05-25 | PN ---
Unit #: [id number] #: [id number] Patient: SHANIKA BAEZA [id number] [facility] [address] [place] [address] [id number] MR#: [id number] NAME: SHANIKA BAEZA. ROOM: 13 Age: 50 Sex: F Admission Date: 05/25/2016 : 1965 Attending Physician: Sharath Kingsley M.D. Admitting Physician: Sharath Kingsley M.D. Primary Care Physician: Primary Care Physician Yolis DE LA VEGA PROGRESS NOTES DATE 05/29/2016 DISCUSSION Ms. Shanika Baeza is a 50-year-old female, seen on 05/29/2016. The patient interviewed, chart reviewed, and obtained information from the nursing staff. The patient was compliant and cooperative, isolative, and guarded, and flat, withdrawn, reported having suicidal ideation, sad and depressed. The patient's vital signs are stable, temperature 97.6, 87, respirations 17, and blood pressure 120/68. REVIEW OF SYSTEMS Complete review of systems unremarkable. MENTAL STATUS EXAMINATION General appearance: Patient casually dressed. Isolative, guarded, flat affect. The patient's speech, regular rate. Thought processes, goal-directed. The patient denied any thoughts of harming others but having suicidal ideation, paranoid. Recent and remote memory, poor. Insight and judgment, poor. DIAGNOSIS Major depressive disorder, recurrent, severe. ASSESSMENT/PLAN Advised to continue with the current medication and therapeutic protocol and will monitor response to medication, and make further adjustment of medication. Dictated by... Fabien Hoskins/abram TD: 05/30/2016 08:36 JOB #: [id number] Unit #: [id number] #: [id number] Patient: SHANIKA BAEZASHANNA PROGRESS NOTES X Sharath Kingsley MD PROGRESS NOTE
--- NOTE | ~2016-05-25 | PN ---
Unit #: [id number] #: [id number] Patient: SHANIKA BAEZA [id number] [facility] [address] [place] [address] [id number] MR#: [id number] NAME: SHANIKA BAEZA. ROOM: 13 Age: 50 Sex: F Admission Date: 05/25/2016 : 1965 Attending Physician: Sharath Kingsley M.D. Admitting Physician: Sharath Kingsley M.D. Primary Care Physician: Primary Care Physician Yolis DE LA VEGA PROGRESS NOTES DATE OF SERVICE: 06/14/2016 DISCUSSION Shanika Baeza is a 50-year-old female, seen on 06/14/2016. The patient interviewed, chart reviewed, and obtained information from nursing staff. The patient was compliant and cooperative, but still reported feeling sad and depressed. Unable to contract for safety if discharged today, but able to participate in program, compliant with medication. Complete review of systems unremarkable. MENTAL STATUS EXAMINATION General appearance, the patient dressed casually. Attention span and concentration, fair. Oriented in place and person. Mood and affect; sad, depressed, withdrawn, isolative. Speech, rapid. Thought process; circumstantial, guarded. Denied any thoughts of harming others, but having passive SI. Unable to contract for safety. Recent and remote memory, poor. Insight and judgment, poor. DIAGNOSIS Major depressive disorder, recurrent, severe. ASSESSMENT AND PLAN Advised to continue with current medication and therapeutic protocol. We will monitor response to medication and make further adjustment of medication. Dictated by... Fabien Hoskins/pelon TD: 06/15/2016 15:21 JOB #: [id number] Unit #: [id number] #: [id number] Patient: SHANIKA BAEZA PROGRESS NOTES Page 1 of 1 X Sharath Kingsley MD PROGRESS NOTE
--- NOTE | ~2016-05-25 | PN ---
Unit #: [id number] #: [id number] Patient: SHANIKA BAEZA [id number] [facility] [address] [place] [address] [id number] I MR#: [id number] NAME: SHANIKA BAEZA. ROOM: [facility] Age: 50 Sex: F Admission Date: 05/25/2016 : 1965 Attending Physician: Sharath Kingsley M.D. Admitting Physician: Sharath Kingsley M.D. Primary Care Physician: Primary Care Physician Yolis DE LA VEGA PROGRESS NOTES DATE 06/17/2016 DISCUSSION Ms. Shanika Baeza is a 50-year-old female, seen on 06/17/2016. The patient interviewed, chart reviewed, and obtained information from the nursing staff. The patient was compliant and cooperative. Mood sad and dysphoric, flat affect. The patient; however, was able to contract for safety. Reports mood is getting better, decrease in suicidal thoughts. REVIEW OF SYSTEMS Complete review of systems unremarkable. MENTAL STATUS EXAMINATION General appearance: Patient dressed casually. Attention span and concentration, fair. Oriented to place and person. Mood and affect, sad and dysphoric. Speech, monotone. Thought process, concrete. The patient denied any thoughts of harming self or others or any psychotic symptoms. Recent and remote memory, poor. Insight and judgment, poor. DIAGNOSIS Major depressive disorder, recurrent. ASSESSMENT/PLAN Advised to continue with the current medication and therapeutic protocol, plan to consider discharge in the next couple of days, if the patient is able to maintain safe behavior. Dictated by... Fabien Hoskins/abram TD: 06/21/2016 12:54 JOB #: [id number] Unit #: [id number] #: [id number] Patient: SHANIKA BAEZA PROGRESS NOTES Page 1 of 1 X Sharath Kingsley MD X PROGRESS NOTE
[2016-05-26 09:52] LABS: BASOPHIL# 0.1 X10e3 (0-0.3); BASOPHIL% 0.6 % (0-2.5); EOSINOPHIL# 0.2 X10e3 (0-0.7); EOSINOPHIL% 2.6 % (0.0-7.0); HEMOGLOBIN 10.5 gm/dL (12.0-16.0); LYMPHOCYTE% 33.5 % (17.0-45.0); MEAN CELL VOLUME 83.3 FL (83-96); MEAN CORPUSCULAR HEMOGLOBIN 28.2 PG (28-34); MEAN CORPUSCULAR HGB CONC 33.8 g/dL (30-36); MEAN PLATELET VOLUME 9.5 FL (6.5-11.5); MONOCYTE# 0.7 X10e3 (0-1.0); MONOCYTE% 7.4 % (3.0-12.0); NEUTROPHIL# 4.9 X10e3 (1.5-7.1); NEUTROPHIL% 55.9 % (40-75); PLATELET COUNT 242 X10e3 (140-420); RED BLOOD COUNT 3.72 X10e (3.90-5.30); RED CELL DISTRIBUTION WIDTH 18.6 % (11.0-15.5); WHITE BLOOD COUNT 8.8 X10e3 (4.0-10.5)
[2016-05-26 09:57] LABS: DIFF IND NO
[2016-05-26 10:06] LABS: URINE APPEARANCE TURBID; URINE BILIRUBIN NEG (NEG); URINE BLOOD 2+ (NEG); URINE COLOR YELLOW; URINE GLUCOSE >1000 MG/DL (NEG); URINE KETONE TRACE (NEG); URINE LEUKOCYTE ESTERASE 2+ (NEG); URINE NITRATE NEG (NEG); URINE PH 5.5 (5-8); URINE PROTEIN 1+ (NEG); URINE SPECIFIC GRAVITY 1.022 (1.003-1.035); URINE UROBILINOGEN 0.2 MG/DL (NEG)
[2016-05-26 10:09] LABS: U HYALINE CASTS AUWI 0-2 /[LPF]; URBCS1 AUWI 25-50 /[HPF] (0-2); URINE SQUAMOUS EPITHELIAL CELL NONE SEEN /[HPF]; UWBCS1 AUWI INNUM (0-5)
[2016-05-26 10:20] LABS: THYROID STIMULATING HORMONE 0.7 uIU/ml (0.34-5.60)
[2016-05-26 10:26] LABS: ALBUMIN SERUM 3.5 g/dL (3.5-5.0); ALKALINE PHOSPHATASE 77 U/L (32-92); ALT (SGPT) 36 U/L (10-40); AST (SGOT) 26 U/L (10-42); BLOOD UREA NITROGEN 15 mg/dL (9-23); CALCIUM SERUM 9.2 mg/dL (8.4-10.2); CARBON DIOXIDE 29 mmol/L (22-31); CHLORIDE 105 mmol/L (100-111); CREATININE SERUM 0.5 mg/dL (0.6-1.4); FREE THYROXIN (T4) 0.83 ng/dL (0.58-1.64); GLOM FILT RATE Estimated ABOVE60 mL/min (>60); GLUCOSE FASTING 187 mg/dL (70-110); PROTEIN TOTAL SERUM 6.4 g/dL (6.0-8.3); SODIUM 141 mmol/L (135-145)
[2016-05-26 10:27] LABS: BILIRUBIN,TOTAL <0.1 mg/dL (0.2-2.0)
[2016-05-26 11:08] LABS: AMPHETAMINE NEG (NEG); BARBITURATES NEG (NEG); BENZODIAZEPINES NEG (NEG); COCAINE NEG (NEG); MARIJUANA NEG (NEG); OPIATES NEG (NEG); TRICYCLIC ANTIDEPRESSANTS NEG (NEG); U METHADONE NEG (NEG)
[2016-05-26 11:29] LABS: CULTURE INDICATED? NO
[2016-06-01 09:48] LABS: URINE APPEARANCE TURBID; URINE BILIRUBIN NEG (NEG); URINE BLOOD 1+ (NEG); URINE COLOR YELLOW; URINE GLUCOSE NEG (NEG); URINE KETONE NEG (NEG); URINE LEUKOCYTE ESTERASE 3+ (NEG); URINE NITRATE POS (NEG); URINE PH 6.5 (5-8); URINE PROTEIN 2+ (NEG); URINE SPECIFIC GRAVITY 1.027 (1.003-1.035); URINE UROBILINOGEN 0.2 MG/DL (NEG)
[2016-06-01 09:49] LABS: URINE BACTERIA AUWI 4+ (NEGATIVE); URINE SQUAMOUS EPITHELIAL CELL NONE SEEN /[HPF]; UWBCS1 AUWI INNUM (0-5)
== END 2016-06-20 16:49 | disposition home or self-care (01) | DRG 885 ==
LOC: P1S 13:43 → POF 05-30 14:17 → P1S 05-30 14:20
PROVIDERS: Psychiatry & Neurology Psychiatry
DX: F33.2 Major depressive disorder, recurrent severe without psychotic features (principal); R45.851 Suicidal ideations; E66.01 Morbid (severe) obesity due to excess calories; F41.9 Anxiety disorder, unspecified; I10 Essential (primary) hypertension; E11.9 Type 2 diabetes mellitus without complications; K58.9 Irritable bowel syndrome, unspecified; J44.9 Chronic obstructive pulmonary disease, unspecified; Z88.1 Allergy status to other antibiotic agents; Z88.2 Allergy status to sulfonamides; Z88.8 Allergy status to other drugs, medicaments and biological substances
CPT/HCPCS: 80053; 80307; 81003; 84439; 84443; 85025

== ENCOUNTER 2016-06-23 20:14 | Inpatient (IN) | payer MEDICARE, OTHER ==
--- NOTE | ~2016-06-23 | PN ---
Unit #: [id number] #: [id number] Patient: SHANIKA BAEZA [id number] [facility] [address] [place] [address] [id number] MR#: [id number] NAME: SHANIKA BAEZA. ROOM: 16 Age: 50 Sex: F Admission Date: 06/23/2016 : 1965 Attending Physician: Sharath Kingsley M.D. Admitting Physician: Sharath Kingsley M.D. Primary Care Physician: Primary Care Physician Yolis VIEYRA NOTES DATE 06/25/2016 DISCUSSION Ms. Shanika Baeza is a 50-year-old female, seen on 06/25/2016. The patient interviewed, chart reviewed, and obtained information from the nursing staff. The patient continues to be seclusive, isolative, but compliant with medication. The patient reports that she is having thoughts of harming herself. The patient was unable to contract for safety. Vital signs, 97.8, 89, 16, and 116/54. The patient was withdrawn, isolative, flat affect. REVIEW OF SYSTEMS Complete review of systems unremarkable. MENTAL STATUS EXAMINATION General appearance: Patient dressed casually. Attention span and concentration, fair. Oriented to place and person. Mood and affect, sad and dysphoric. Speech, monotone. Thought process, concrete. The patient denied any thoughts of harming self or others but guarded. Recent and remote memory, poor. Insight and judgment, poor. DIAGNOSIS Major depressive disorder, recurrent. ASSESSMENT/PLAN Advised to continue with the current medication and therapeutic protocol and will monitor response to medication, and make further adjustment of medication. Dictated by... Fabien Hoskins/abram TD: 06/28/2016 05:22 Unit #: [id number] #: [id number] Patient: SHANIKA BAEZA JOB #: [id number] CEFER[facility] VIEYRA NOTES Page 1 of 1 X Sharath Kingsley MD PROGRESS NOTE
--- NOTE | ~2016-06-23 | PN ---
Unit #: [id number] #: [id number] Patient: SHANIKA BAEZA [id number] [facility] [address] [place] [address] [id number] I MR#: [id number] NAME: SHANIKA BAEZA. ROOM: [facility] Age: 50 Sex: F Admission Date: 06/23/2016 : 1965 Attending Physician: Sharath Kingsley M.D. Admitting Physician: Shaarth Kingsley M.D. Primary Care Physician: Primary Care Physician Yolis VIEYRA NOTES DATE OF SERVICE 06/29/2016 DISCUSSION Shanika Baeza is a 50-year-old female seen on 06/29/2016. The patient interviewed, chart reviewed. Obtained information from nursing staff. The patient continues to report having suicidal ideation, feeling sad, depressed. The patient able to participate in group. Currently in scrubs. Isolative, guarded, flat affect. Sad, dysphoric, mood. Complete Review of Systems: Unremarkable. MENTAL STATUS EXAMINATION The patient dressed casually in hospital attire. Attention span, concentration: Fair. Oriented in place and person. Mood and affect: Sad, depressed. Speech: Slow. Thought process: Circumstantial. The patient denied any thoughts of harming others but having thoughts of harming herself. Guarded. Recent and remote memory: Poor. Insight and judgment: Poor. DIAGNOSIS Major depressive disorder, recurrent. ASSESSMENT/PLAN Advised to continue with current medication and therapeutic protocol. If needed, consider further adjustment of medication. Dictated by... Fabien Hoskins/jose ramon TD: 07/02/2016 09:46 JOB #: [id number] Unit #: [id number] #: [id number] Patient: SHANIKA BAEZA CEFERINO PROGRESS NOTES Page 1 of 1 X Sharath Kingsley MD PROGRESS NOTE
--- NOTE | ~2016-06-23 | PN ---
Unit #: [id number] #: [id number] Patient: SHANIKA BAEZA [id number] [facility] [address] [place] [address] [id number] I MR#: [id number] NAME: SHANIKA BAEZA. ROOM: 16 Age: 50 Sex: F Admission Date: 06/23/2016 : 1965 Attending Physician: Sharath Kingsley M.D. Admitting Physician: Fabien Hoskins PROGRESS NOTES DATE OF SERVICE: 07/02/2016 DISCUSSION Arelis Baeza is a 50-year-old female, seen on 07/02/2016. The patient interviewed, chart reviewed, and obtained information from nursing staff. The patient reports still feeling sad and depressed, but able to contract for safety. The patient was sad, dysphoric, flat, and isolative. REVIEW OF SYSTEMS Complete review of systems unremarkable. MENTAL STATUS EXAMINATION General appearance, the patient dressed casually in hospital attire. Attention span and concentration, poor. Oriented in place and person. Mood and affect, sad and depressed. Speech, monotone. Thought process, concrete. The patient denied any thoughts of harming self or others or any psychotic symptom. Recent and remote memory, poor. Insight and judgment, poor. DIAGNOSIS Major depressive disorder, recurrent. ASSESSMENT AND PLAN Advised to continue with current medication and therapeutic protocol with a plan to consider discharge on Monday if the patient continues to do well. Dictated by... Fabien Hoskins/pelon TD: 07/02/2016 20:31 JOB #: [id number] Unit #: [id number] #: [id number] Patient: SHANIKA BAEZA PROGRESS NOTES Page 1 of 1 X Sharath Kingsley MD PROGRESS NOTE
--- NOTE | ~2016-06-23 | PN ---
Unit #: [id number] #: [id number] Patient: SHANIKA BAEZA [id number] [facility] [address] [place] [address] [id number] MR#: [id number] NAME: SHANIKA BAEZA. ROOM: [facility] Age: 50 Sex: F Admission Date: 06/23/2016 : 1965 Attending Physician: Sharath Kingsley M.D. Admitting Physician: Sharath Kingsley M.D. Primary Care Physician: Primary Care Physician Yolis DE LA VEGA PROGRESS NOTES DATE 07/01/2016 DISCUSSION Ms. Shanika Baeza is a 50-year-old female seen on 07/01/2016. Patient interviewed. Chart reviewed. Obtained information from nursing staff. Patient was compliant, cooperative. Mood sad, dysphoric, flat affect, guarded. Patient reports that she is still having passive SI and still not quite ready. Patient dressed in hospital attire, isolative. Vital signs stable, 97.9, 81, 16, 116/56. Complete review of system unremarkable. MENTAL STATUS EXAMINATION General appearance, patient dressed casually. Attention span, concentration fair. Oriented in place and person. Mood and affect was sad, dysphoric. Speech monotone. Thought process concrete. Patient denied any thoughts of harming self or others but guarded, having passive SI. Recent and remote memory poor. Insight and judgement poor. DIAGNOSIS Major depressive disorder, recent. ASSESSMENT/PLAN Advised to continue with current medication and therapeutic protocol. If needed, consider further adjustment of medication. Dictated by... Fabien Hoskins/miri TD: 07/04/2016 16:18 JOB #: [id number] Unit #: [id number] #: [id number] Patient: SHANIKA BAEZA CEFERINO PROGRESS NOTES Page 1 of 1 X Sharath Kingsley MD PROGRESS NOTE
--- NOTE | ~2016-06-23 | PN ---
Unit #: [id number] #: [id number] Patient: SHANIKA BAEZA [id number] [facility] [address] [place] [address] [id number] I MR#: [id number] NAME: SHANIKA BAEZA. ROOM: [facility] Age: 50 Sex: F Admission Date: 06/23/2016 : 1965 Attending Physician: Sharath Kingsley M.D. Admitting Physician: Sharath Kingsley M.D. Primary Care Physician: Primary Care Physician Yolis VIEYRA NOTES DATE OF SERVICE 06/28/2016 DISCUSSION Ms. Shanika Baeza is a 50-year-old female. The patient seen on 06/28/2016. The patient is currently in paper scrub. Mood sad, dysphoric, flat affect. The patient's mood is sad, depressed. Still unable to contract for safety. The patient currently on (1) __ programming on the inpatient unit with precaution for self-harm. The patient compliant with medication. [employer] working with the patient about personal shelter because of repeated admission. Complete Review of Systems: Unremarkable. MENTAL STATUS EXAMINATION General Appearance: The patient dressed in hospital attire. Attention span, concentration: Poor. Oriented in place and person. Mood and affect: Sad, dysphoric, flat. Speech: Rapid. Thought process: Circumstantial. The patient reported having suicidal ideation. Unable to contract for safety. Denied any homicidal ideation, guarded. Recent and remote memory: Poor. Insight and judgment: Poor. DIAGNOSIS Major depressive disorder, recurrent. ASSESSMENT/PLAN Advised to continue with current medication and therapeutic protocol. If needed, consider further adjustment of medication. Dictated by... Fabien Hoskins/jose ramon TD: 06/30/2016 10:07 JOB #: [id number] Unit #: [id number] #: [id number] Patient: SHANIKA BAEZA AZALIA NOTES Page 1 of 1 X Sharath Kingsley MD PROGRESS NOTE
--- NOTE | ~2016-06-23 | HP ---
Unit #: [id number] #: [id number] Patient: SHANIKA BAEZA [id number] [facility] [address] [place] [address] [id number] I MR#: [id number] NAME: SHANIKA BAEZA. ROOM: 32 Age: 50 Sex: F Admission Date: 06/23/2016 : 1965 Attending Physician: Sharath Kingsley M.D. Admitting Physician: Sharath Kingsley M.D. Primary Care Physician: Primary Care Physician No HISTORY AND PHYSICAL Shanika is a 50 year old admitted to [address] [place] [address]. She has had numerous admissions to this facility. Patient was seen and H and P dated 05/26/16 was reviewed. This is current. No changes. Please see H and P dated 05/26/16. Dictated by... Laura Calixto P.A.-C. for Fabien Stephens/miri TD: 06/24/2016 20:30 JOB #: [id number] HISTORY AND PHYSICAL Page 1 of 1 X Laura Calixto HISTORY AND PHYSICAL
--- NOTE | ~2016-06-23 | PA ---
Unit #: [id number] #: [id number] Patient: SHANIKA BAEZA [id number] [place] [address] [id number] I MR#: [id number] NAME: SHANIKA BAEZA. ROOM: [facility] Age: 50 Sex: F Admission Date: 06/23/2016 : 1965 Date of Assessment: Attending Physician: Sharath Kingsley M.D. Admitting Physician: Sharath Kingsley M.D. PSYCHIATRIC ASSESSMENT INFORMANTS The patient reliability, fair; chart reliability, good. CHIEF COMPLAINT Depression and suicidal ideation. HISTORY OF PRESENT ILLNESS Ms. Shanika Baeza is a 50-year-old female, last admitted on 05/25/2016, presented with the above-mentioned complaint. The patient was discharged on 06/20/2016. The patient presented with depression and suicidal ideation. The patient reported that she thought of killing herself today and taking a bunch of pills. The patient brought back all her prescription. She reports she did not fill the medication. The patient reported that she was staying in a motel and got angry at the police clerk, unprovoked. The patient reported that she had not taken her medication since she was discharged. The patient reported getting angry a lot. The patient has a history of multiple admissions at [facility]. The patient was recently admitted at [facility] on 05/26/2016; before that admission in 01/2016, 02/2016, 03/2016, and 04/2016. FAMILY HISTORY AND SOCIAL HISTORY The patient has a poor support system. No history of any abuse. No history of any substance abuse. Currently homeless and having financial problem. MEDICAL HISTORY Remarkable for history of blood clot, treated in the hospital earlier; history of congestive heart failure; hypertension; diabetes; irritable bowel syndrome; chronic obstructive pulmonary disease; and irregular heartbeat. Musculoskeletal; muscle strength and tone, no atrophy or abnormal movement, but abnormal gait. MEDICATION HISTORY The patient is on Desyrel, Celexa, Cardizem, Vistaril, Micronase, Zestril, and Proventil. ALLERGIES No known drug allergies. SUBSTANCE ABUSE HISTORY None. REVIEW OF SYSTEMS Unit #: [id number] #: [id number] Patient: SHANIKA BAEZA HEENT: Eyes, clear. Ears, nose, mouth, and throat; clear. CARDIOVASCULAR: Unremarkable. RESPIRATORY: Unremarkable. GI: Unremarkable. : Unremarkable. SKIN: Unremarkable. LYMPH NODE: Unremarkable. NEUROLOGIC: Unremarkable. ENDOCRINE: Unremarkable. HEMATOLOGIC: Unremarkable. ALLERGIC/IMMUNOLOGIC: Unremarkable. MUSCULOSKELETAL: Muscle strength and tone, no atrophy or abnormal movement. Gait abnormal. MENTAL STATUS EXAMINATION CONSTITUTIONAL: Measurement of vital signs; temperature 97.8, pulse 116, respirations 18, oxygen saturation 99%, blood pressure 155/82, height 5 feet 2 inches, weight is 130 pounds. GENERAL APPEARANCE: The patient dressed casually. The patient did not show any facial deformity. MUSCULOSKELETAL: Please see above. PSYCHIATRIC EXAMINATION Description of speech; regular rate, poor articulation, spontaneous. Description of thought process, goal directed. Description of association, intact. Description of abnormal psychotic thinking; the patient denied any hallucinations or delusions, but reported having suicidal ideation, unable to contract for safety. Denied any homicidal ideation. Description of the patient's judgment: Concerning everyday activity, poor. Social situation, poor. Concerning psychiatric condition, poor. Complete mental status examination; oriented in time, place, and person. Recent and remote memory, fair. Attention span and concentration, fair. Language; able to name object, repeat phrases. Fund of knowledge; aware of current event, passive vocabulary intact. Mood and affect, sad and dysphoric. Insight and judgment, fair to poor. ASSETS AND LIABILITIES Assets; the patient is articulate, able to take care of her ADL. Liability; history of depression, multiple admissions. ADMISSION DIAGNOSES Psychiatric: 1. Major depressive disorder, recurrent, severe, F33.2. 2. Anxiety disorder, not otherwise specified, F41.9. Secondary diagnosis: Deferred. Medical diagnoses: Hypertension, chronic obstructive pulmonary disease, history of atrial fibrillation, diabetes mellitus, asthma. Stressors: Psychosocial stressors, homelessness, financial problem. PSYCHIATRIC PLAN, TREATMENT GOAL, AND DISCHARGE PLAN 1. Advised to admit the patient on the inpatient unit. Provide safe, supportive, and structured environment. 2. Ordered labs, UA and UDS. 3. Advised to resume home medications. Plan is to consider adjusting the Unit #: [id number] #: [id number] Patient: SHANIKA BAEZA dosage if needed. The patient is to continue with Seroquel 50 mg at bedtime, Desyrel 50 mg at bedtime, Vistaril 25 mg t.i.d., Neurontin 100 mg t.i.d., Motrin 600 mg t.i.d. p.r.n., Cardizem CD 120 mg daily, Zestril 20 mg daily, Celexa 40 mg daily, and Micronase 2.5 mg in the morning. 4. Treatment goal is to attain euthymic mood, gain insight into her problem, and learn coping skills. 5. Discharge plan: Plan is to stabilize the patient and work with executive secretary social welfare to find stable placement for the patient as the patient has been getting discharged and coming back, staying in a motel. The patient will be benefitted by finding a placement. We will make sure to work with the executive secretary social welfare. Plan is to stabilize the patient and consider followup in outpatient program. ESTIMATED LENGTH OF STAY 5 days. Dictated by... Fabien Hoskins/pelon TD: 06/24/2016 16:29 JOB #: [id number] PSYCHIATRIC ASSESSMENT Page 1 of 1 X Sharath Kingsley MD PSYCHIATRIC ASSESSMENT
--- NOTE | ~2016-06-23 | PN ---
Unit #: [id number] #: [id number] Patient: SHANIKA BAEZA [id number] [facility] [address] [place] [address] [id number] I MR#: [id number] NAME: SHANIKA BAEZA. ROOM: 16 Age: 50 Sex: F Admission Date: 06/23/2016 : 1965 Attending Physician: Sharath Kingsley M.D. Admitting Physician: Sharath Kingsley M.D. Primary Care Physician: Primary Care Physician Yolis VIEYRA NOTES DATE 06/26/2016 DISCUSSION Shanika Baeza is a 50-year-old female, seen on 06/26/2016. The patient continues to report having suicidal ideations and unable to contract for safety. Mood sad and dysphoric, flat affect, withdrawn, isolative. Vital signs, 98.2, 92, 16, and 121/70. REVIEW OF SYSTEMS Complete review of systems unremarkable. MENTAL STATUS EXAMINATION General appearance: Patient dressed casually. Attention span and concentration, fair. Oriented to place and person. Mood and affect, labile. Speech, monotone. Thought process, concrete. The patient reported having suicidal ideation, denied any homicidal ideation, guarded, withdrawn, and isolative. Recent and remote memory, poor. Insight and judgment, poor. DIAGNOSIS Major depressive disorder, recurrent. ASSESSMENT/PLAN Advised to continue with the current medication and therapeutic protocol and will monitor response to medication, and make further adjustment of medication. Dictated by... Fabien Hoskins/abram TD: 06/28/2016 08:37 JOB #: [id number] Unit #: [id number] #: [id number] Patient: SHANIKA BAEZA CEFERINO PROGRESS NOTES Page 1 of 1 X Sharath Kingsley MD X PROGRESS NOTE
--- NOTE | ~2016-06-23 | PN ---
Unit #: [id number] #: [id number] Patient: SHANIKA BAEZA [id number] [facility] [address] [place] [address] [id number] MR#: [id number] NAME: SHANIKA BAEZA. ROOM: 16 Age: 50 Sex: F Admission Date: 06/23/2016 : 1965 Attending Physician: Sharath Kingsley M.D. Admitting Physician: Sharath Kingsley M.D. Primary Care Physician: Primary Care Physician Yolis VIEYRA NOTES DATE OF SERVICE: 06/30/2016 DISCUSSION Shanika Baeza is a 50-year-old female, seen on 06/30/2016. The patient interviewed, chart reviewed, and obtained information from nursing staff. The patient was sad, dysphoric, flat affect, guarded. The patient reported that she is still having suicidal ideation, but participating in the program. The patient was unable to contract for safety. Vital signs, stable; temperature 98.2, pulse 91, respirations 16, and blood pressure 115/70. Complete review of systems unremarkable. MENTAL STATUS EXAMINATION General appearance, the patient dressed casually. Attention span and concentration, fair. Oriented in place and person. Mood and affect, labile. Speech, monotone. Thought process, concrete. The patient denied any thoughts of harming self or others, but guarded, having suicidal ideation, passive. Recent and remote memory, poor. Insight and judgment, poor. DIAGNOSIS Major depressive disorder, recurrent, severe. ASSESSMENT AND PLAN Advised to continue with current medication and therapeutic protocol. If needed, consider further adjustment of medication. Dictated by... Fabien Hoskins/pelon TD: 06/30/2016 21:34 JOB #: [id number] Unit #: [id number] #: [id number] Patient: SHANIKA BAEZA CEFERINO VIEYRA NOTES Page 1 of 1 X Sharath Kingsley MD PROGRESS NOTE
--- NOTE | ~2016-06-23 | PN ---
Unit #: [id number] #: [id number] Patient: SHANIKA BAEZA [id number] [facility] [address] [place] [address] [id number] I MR#: [id number] NAME: SHANIKA BAEZA. ROOM: 16 Age: 50 Sex: F Admission Date: 06/23/2016 : 1965 Attending Physician: Sharath Kingsley M.D. Admitting Physician: Sharath Kingsley M.D. Primary Care Physician: Primary Care Physician Yolis VIEYRA NOTES DATE 06/27/2016 DISCUSSION Ms. Shanika Baeza is a 50-year-old female, seen on 06/27/2016. The patient interviewed, chart reviewed, and obtained information from the nursing staff. The patient reported that she is not feeling well, still reporting having suicidal ideation. The patient reports that she would like to stay here until her next paycheck. The patient seems to have secondary gain by staying here and not sure about her sincerity of her symptoms. The patient continues to isolate in her room, [facility]. We will discuss with the social problems specialist about further plan. As the patient was leaving from here, not taking her medication, and going to motel and after that coming back. The patient had multiple admissions recently. REVIEW OF SYSTEMS Complete review of systems unremarkable. MENTAL STATUS EXAMINATION General appearance: Patient dressed casually. Attention span and concentration, fair. Oriented to place and person. Mood and affect, sad and dysphoric. Speech, monotone. Thought process, concrete. The patient denied any thoughts of harming self or others but guarded. Recent and remote memory, poor. Insight and judgment, poor. DIAGNOSIS Major depressive disorder, recurrent. ASSESSMENT/PLAN Advised to continue with the current medication and therapeutic protocol and will monitor response to medication, and make further adjustment of medication if needed. Dictated by... Fabien Hoskins/abram TD: 06/29/2016 09:25 Unit #: [id number] #: [id number] Patient: SHANIKA BAEZA JOB #: [id number] [facility] PROGRESS NOTES Page 1 of 1 X Sharath Kingsley MD PROGRESS NOTE
--- NOTE | ~2016-06-23 | PN ---
Unit #: [id number] #: [id number] Patient: SHANIKA BAEZA [id number] [facility] [address] [place] [address] [id number] MR#: [id number] NAME: SHANIKA BAEZA. ROOM: [facility] Age: 50 Sex: F Admission Date: 06/23/2016 : 1965 Attending Physician: Sharath Kingsley M.D. Admitting Physician: Fbaien Hoskins PROGRESS NOTES DATE OF SERVICE: 07/03/2016 DISCUSSION Ms. Shanika Baeza is a 50-year-old female, seen on 07/03/2016. The patient interviewed, chart reviewed, and obtained information from nursing staff. The patient was compliant and cooperative. Denied any thoughts of harming self or others. Mood, sad and dysphoric. Eating good, sleeping good, compliant with medication. REVIEW OF SYSTEMS Complete review of systems unremarkable. MENTAL STATUS EXAMINATION General appearance, the patient dressed in hospital attire. Attention span and concentration, fair. Able to smile. Made good eye contact. Oriented in time, place, and person. Mood and affect were labile. Speech, regular rate. Thought process, goal directed. The patient denied any thoughts of harming self or others or any psychotic symptom. Recent and remote memory, fair. Insight and judgment, fair to poor. DIAGNOSIS Major depressive disorder, recurrent. ASSESSMENT AND PLAN Advised to continue with current medication and therapeutic protocol with a plan to consider discharge next week, with a plan to follow up in IOP level of care. Dictated by... Fabien Hoskins/pelon TD: 07/03/2016 13:32 JOB #: [id number] Unit #: [id number] #: [id number] Patient: SHANIKA BAEZA PROGRESS NOTES Page 1 of 1 X Sharath Kingsley MD PROGRESS NOTE
--- NOTE | ~2016-06-23 | DS ---
Unit #: [id number] #: [id number] Patient: SHANIKA BAEZA [id number] [facility] [address] [place] [address] [id number] MR#: [id number] NAME: SHANIKA BAEZA. ROOM: [facility] Age: 50 Sex: F Admission Date: 06/23/2016 : 1965 Discharge Date: 07/04/2016 Attending Physician: Sharath Kingsley M.D. Primary Care Physician: Primary Care Physician No DISCHARGE SUMMARY REASON FOR ADMISSION Depression. DIAGNOSTIC STUDIES LABORATORY RESULTS: Unremarkable. HOSPITAL COURSE The patient was admitted to inpatient unit on 06/23/2016 and discharged on 07/04/2016. The patient was treated on the inpatient unit with group therapy, individual therapy, and medication management. The patient responded well with the above modalities of treatment, but wanted to stay here until her next paycheck so that she can get an apartment. The patient although not having any suicidal ideation or depressive symptom, but seems to have a secondary gain by staying here. The patient was explained that social media campaign manager can arrange for alternative placement in the meantime. Subsequently, the patient was discharged home as the patient is not suicidal or homicidal. DISCHARGE MEDICATIONS Celexa 40 mg daily for depression, glyburide 2.5 mg daily for diabetes, Desyrel 50 mg at bedtime for sleep, Seroquel 50 mg at bedtime for mood stabilization, Neurontin 100 mg t.i.d. for anxiety, Vistaril 25 mg t.i.d. for anxiety, Zestril 20 mg daily for hypertension, and Cardizem CD 120 mg daily for hypertension. DISCHARGE DIAGNOSES Psychiatric: 1. Major depressive disorder, recurrent, severe, F33.2. 2. Anxiety disorder, not otherwise specified, F41.9. Secondary diagnosis: Deferred. Medical diagnoses: Hypertension, history of chronic obstructive pulmonary disease, history of atrial fibrillation, diabetes mellitus, asthma. Stressors: Psychosocial stressors, homelessness, financial problem. DISCHARGE INSTRUCTIONS The patient is to follow up in outpatient clinic as per social media campaign manager. CONDITION ON DISCHARGE The patient was pleasant and cooperative. PROGNOSIS Unit #: [id number] #: [id number] Patient: SHANIKA BAEZA Guarded. DIET AND ACTIVITY As tolerated. Dictated by... Sharath Kingsley M.D. SZC/pelon TD: 07/04/2016 21:10 JOB #: [id number] DISCHARGE SUMMARY Page 1 of 1 X Sharath Kingsley MD DISCHARGE SUMMARY
== END 2016-07-04 17:04 | disposition home or self-care (01) | DRG 885 ==
LOC: P1S 20:14
DX: F33.2 Major depressive disorder, recurrent severe without psychotic features (principal); I48.91 Unspecified atrial fibrillation; R45.851 Suicidal ideations; F41.9 Anxiety disorder, unspecified; I10 Essential (primary) hypertension; J44.9 Chronic obstructive pulmonary disease, unspecified; E11.9 Type 2 diabetes mellitus without complications; J45.909 Unspecified asthma, uncomplicated

== ENCOUNTER 2016-07-05 16:19 | Inpatient (IN) | payer MEDICARE, OTHER ==
--- NOTE | ~2016-07-05 | PN ---
Unit #: [id number] #: [id number] Patient: SHANIKA BAEZA [id number] [facility] [address] [place] [address] [id number] MR#: [id number] NAME: SHANIKA BAEZA. ROOM: 15 Age: 50 Sex: F Admission Date: 07/05/2016 : 1965 Attending Physician: Sharath Kingsley M.D. Admitting Physician: Sharath Kingsley M.D. Primary Care Physician: Primary Care Physician Yolis VIEYRA NOTES DATE OF SERVICE: 07/06/2016 DISCUSSION Ms. Shanika Baeza is a 50-year-old female, seen on 07/06/2016. The patient interviewed, chart reviewed, and obtained information from nursing staff. The patient dressed casually in hospital attire, made good eye contact. The patient reported that she is still feeling sad, depressed, suicidal ideation, compliant with medication, requested for Motrin. Complete review of systems unremarkable. MENTAL STATUS EXAMINATION The patient dressed casually in hospital attire. Attention span and concentration, fair. Oriented in place and person. Mood and affect, labile. Speech; monotone, slow in volume, but rapid in rate. Thought process, circumstantial. The patient denied any thoughts of harming others, but having suicidal ideation, unable to contract for safety if discharged today. Recent and remote memory, poor. Insight and judgment, poor. DIAGNOSIS Major depressive disorder, recurrent. ASSESSMENT AND PLAN Advised to continue with current medication and therapeutic protocol. If needed, consider further adjustment of medication. We will continue to monitor the patient's mood and behavior. Dictated by... Fabien Hoskins/pelon TD: 07/06/2016 22:01 JOB #: [id number] Unit #: [id number] #: [id number] Patient: SHANIKA BAEZA SKIPSHANNA AZALIA NOTES Page 1 of 1 X Sharath Kingsley MD PROGRESS NOTE
--- NOTE | ~2016-07-05 | PN ---
Unit #: [id number] #: [id number] Patient: SHANIKA BAEZA [id number] [facility] [address] [place] [address] [id number] MR#: [id number] NAME: SHANIKA BAEZA. ROOM: [facility] Age: 50 Sex: F Admission Date: 07/05/2016 : 1965 Attending Physician: Sharath Kingsley M.D. Admitting Physician: Sharath Kingsley M.D. Primary Care Physician: Primary Care Physician Yolis VIEYRA NOTES DATE 07/10/2016 DISCUSSION Ms. Shanika Baeza is a 50-year-old female, seen on 07/10/2016. The patient interviewed, chart reviewed, and obtained information from the nursing staff. The patient was sad, dysphoric, flat affect, guarded. The patient's vital signs stable. The patient's temperature was 100.1, 104, 16, and 130/63. The patient reported not feeling well, sad, depressed mood. REVIEW OF SYSTEMS Complete review of systems unremarkable. MENTAL STATUS EXAMINATION General appearance: Patient dressed casually. Attention span and concentration, fair. Oriented to place and person. Mood and affect, sad and dysphoric. Speech, monotone. Thought process, concrete. The patient reported having suicidal ideation, unable to contract for safety, denied any hallucinations. Recent and remote memory, poor. Insight and judgment, poor. DIAGNOSIS Major depressive disorder, recurrent. ASSESSMENT/PLAN Advised to continue with the current medication and we will follow up with medical consultation, recommendation, patient started on Claritin as needed but consider further adjustment of medication. Dictated by... Fabien Hoskins/abram TD: 07/11/2016 07:21 JOB #: [id number] Unit #: [id number] #: [id number] Patient: SHANIKA BAEZA PROGRESS NOTES Page 1 of 1 X Sharath Kingsley MD PROGRESS NOTE
--- NOTE | ~2016-07-05 | CO ---
Unit #: [id number] #: [id number] Patient: SHANIKA BAEZA [id number] [place] [address] [id number] MR#: [id number] NAME: SHANIKA BAEZA. ROOM: 15 Age: 50 Sex: F Admission Date: 07/05/2016 : 1965 Attending Physician: Sharath Kingsley M.D. Primary Care Physician: Primary Care Physician No Consultation Date: 07/07/2016 CONSULTATION REPORT SUBJECTIVE Shanika is a 50-year-old who complained of a stuffy nose and clear nasal drainage. We have been asked to assess and treat. She had no complaints of cough or shortness of breath and there have been no recorded increased temperatures. We started her on Claritin 10 mg daily. Nursing staff is to let us know if anything further is needed. Dictated by... Laura Calixto P.A.-C. for Fabien Stephens/pelon TD: 07/09/2016 14:37 JOB #: [id number] CONSULTATION REPORT Page 1 of 1 X Laura Calixto X CONSULTATION REPORT
--- NOTE | ~2016-07-05 | PN ---
Unit #: [id number] #: [id number] Patient: SHANIKA BAEZA [id number] [facility] [address] [place] [address] [id number] I MR#: [id number] NAME: SHANIKA BAEZA. ROOM: 15 Age: 50 Sex: F Admission Date: 07/05/2016 : 1965 Attending Physician: Sharath Kingsley M.D. Admitting Physician: Sharath Kingsley M.D. Primary Care Physician: Primary Care Physician Yolis DE LA VEGA PROGRESS NOTES DATE 07/12/2016 DISCUSSION Ms. Shanika Baeza is a 50-year-old female, seen on 07/12/2016. The patient interviewed, chart reviewed, and obtained information from the nursing staff. The patient was sad and dysphoric, flat affect, guarded, reported having problem with the cough and reported feeling sad and depressed, suicidal ideation. REVIEW OF SYSTEMS Complete review of systems unremarkable. MENTAL STATUS EXAMINATION General appearance: Patient dressed casually. Attention span and concentration, fair. Oriented to place and person. Mood and affect, sad and dysphoric. Speech, monotone. Thought process, concrete. The patient reported having suicidal ideation but able to contract for safety on the unit. Denied any plan, guarded. Recent and remote memory, poor. Insight and judgment, poor. DIAGNOSIS Major depressive disorder, recurrent. ASSESSMENT/PLAN Advised to continue with the current medication and therapeutic protocol and if needed consider adjustment of medication. Dictated by... Fabien Hoskins/abram TD: 07/13/2016 10:41 JOB #: [id number] Unit #: [id number] #: [id number] Patient: SHANIKA BAEZA PROGRESS NOTES Page 1 of 1 X Sharath Kingsley MD PROGRESS NOTE
--- NOTE | ~2016-07-05 | PN ---
Unit #: [id number] #: [id number] Patient: SHANIKA BAEZA [id number] [facility] [address] [place] [address] [id number] I MR#: [id number] NAME: SHANIKA BAEZA. ROOM: [facility] Age: 50 Sex: F Admission Date: 07/05/2016 : 1965 Attending Physician: Sharath Kingsley M.D. Admitting Physician: Sharath Kingsley M.D. Primary Care Physician: Primary Care Physician Yolis VIEYRA NOTES DATE OF SERVICE 07/15/2016 DISCUSSION Shanika Baeza is a 50-year-old female seen on 07/15/2016. The patient interviewed, chart reviewed. Obtained information from nursing staff. The patient was compliant, cooperative. Mood sad, dysphoric, flat affect, guarded. The patient was able to contract for safety, but not quite able to contract if discharged today. Vital Signs: Stable, 98.2, 82, 18, 133/67. Mood sad, dysphoric, flat affect, but cooperative, redirectable. No self-harming behavior. The patient interacted appropriately with staff and peer. Complete Review of Systems: Unremarkable. MENTAL STATUS EXAMINATION General Appearance: The patient dressed casually. Attention span, concentration: Fair. Oriented in time, place, and person. Mood and affect: Sad, dysphoric. Speech: Monotone. Thought process: [place]. The patient denied any thoughts of harming self or others but still unable to contract for safety if discharged home. Recent and remote memory: Poor. Insight and judgment: Poor. DIAGNOSIS Major depressive disorder, recurrent. ASSESSMENT/PLAN Advised to continue with current medication and therapeutic protocol. If needed, consider further adjustment of medication. Dictated by... Fabien Hoskins/jose ramon TD: 07/16/2016 07:13 JOB #: [id number] Unit #: [id number] #: [id number] Patient: SHANIKA BAEZA PROGRESS NOTES Page 1 of 1 X Sharath Kingsley MD X PROGRESS NOTE
--- NOTE | ~2016-07-05 | DS ---
Unit #: [id number] #: [id number] Patient: SHANIKA BAEZA [id number] [facility] [address] [place] [address] [id number] MR#: [id number] NAME: SHANIAK BAEZA. ROOM: [facility] Age: 50 Sex: F Admission Date: 07/05/2016 : 1965 Discharge Date: 07/18/2016 Attending Physician: Sharath Kingsley M.D. Primary Care Physician: Primary Care Physician No DISCHARGE SUMMARY REASON FOR ADMISSION Depression and suicidal ideation. DIAGNOSTIC STUDIES LABORATORY RESULTS: Unremarkable. HOSPITAL COURSE The patient was admitted to inpatient unit on 07/05/2016 and discharged on 07/18/2016. The patient was treated on the inpatient unit with expressive therapy, medication management, psychoeducation, and psychotherapy. The patient responded well with the above modalities of treatment and able to contract for safety. Subsequently, the patient was discharged with a plan to follow up in outpatient program. DISCHARGE MEDICATIONS Celexa 40 mg daily for depression, Micronase 2.5 mg daily before breakfast for diabetes, Desyrel 50 mg at bedtime for sleep, Seroquel 50 mg at bedtime for mood stabilization, Neurontin 100 mg t.i.d. for anxiety, Vistaril 25 mg t.i.d. for anxiety, Zestril 20 mg daily for hypertension, Cardizem CD 120 mg daily for hypertension, and Claritin 10 mg daily for allergies. DISCHARGE DIAGNOSES Psychiatric: Major depressive disorder, recurrent, severe, F33.2 and anxiety disorder, not otherwise specified, F41.9. Secondary diagnosis: Deferred. Medical diagnoses: Hypertension, history of chronic obstructive pulmonary disease, history of atrial fibrillation, diabetes mellitus, and asthma. Stressors: Psychosocial stressors, homelessness, financial problem, and poor support system. DISCHARGE INSTRUCTIONS The patient to follow up in outpatient clinic as per social group worker. CONDITION ON DISCHARGE The patient was pleasant and cooperative. Denied any psychotic symptoms or any suicidal ideation. PROGNOSIS Guarded. Unit #: [id number] #: [id number] Patient: SHANIKA BAEZA DIET AND ACTIVITY As tolerated. Dictated by... Fabien Hoskins/pelon TD: 07/18/2016 18:51 JOB #: [id number] DISCHARGE SUMMARY Page 1 of 1 X Sharath Kingsley MD DISCHARGE SUMMARY
--- NOTE | ~2016-07-05 | PN ---
Unit #: [id number] #: [id number] Patient: SHANIKA BAEZA [id number] [facility] [address] [place] [address] [id number] MR#: [id number] NAME: SHANIKA BAEZA. ROOM: 15 Age: 50 Sex: F Admission Date: 07/05/2016 : 1965 Attending Physician: Sharath Kingsley M.D. Admitting Physician: Sharath Kingsley M.D. Primary Care Physician: Primary Care Physician Yolis VIEYRA NOTES DATE OF SERVICE: 07/11/2016 DISCUSSION Ms. Shanika Baeza is a 50-year-old female, seen on 07/11/2016. The patient interviewed, chart reviewed, and obtained information from nursing staff. The patient reported not feeling well, still feeling sad and depressed, having suicidal ideation, isolative, guarded, flat affect, dysphoric, irritable. The patient had disruptive behavior, argumentative, rude, stripping, inappropriate urination. Complete review of systems unremarkable. MENTAL STATUS EXAMINATION General appearance, the patient dressed casually. Attention span and concentration, fair. Oriented in place and person. Mood and affect, labile. Speech, monotone. Thought process, concrete. The patient reported having suicidal ideation, unable to contract for safety if discharged home today, but able to contract for safety on the unit. Somewhat guarded, but denied any auditory or visual hallucination. Recent and remote memory, poor. Insight and judgment, poor. DIAGNOSIS Major depressive disorder, recurrent. ASSESSMENT AND PLAN Advised to continue with current medication. If needed, consider further adjustment of medication. Dictated by... Fabien Hoskins/pelon TD: 07/11/2016 20:06 JOB #: [id number] Unit #: [id number] #: [id number] Patient: SHANIKA BAEZA AZALIA NOTES Page 1 of 1 X Sharath Kingsley MD PROGRESS NOTE
--- NOTE | ~2016-07-05 | PA ---
Unit #: [id number] #: [id number] Patient: SHANIKA BAEZA [id number] [facility] [address] [place] [address] [id number] I MR#: [id number] NAME: SHANIKA BAEZA. ROOM: [facility] Age: 50 Sex: F Admission Date: 07/05/2016 : 1965 Date of Assessment: 07/06/2016 Attending Physician: Sharath Kingsley M.D. Admitting Physician: Sharath Kingsley M.D. Primary Care Physician: Primary Care Physician No PSYCHIATRIC ASSESSMENT INFORMANTS The patient's reliability, fair; chart reliability, good. CHIEF COMPLAINT Depression. HISTORY OF PRESENT ILLNESS Ms. Shanika Baeza is a 50-year-old female, who was discharged yesterday, admitted with depression, suicidal ideation, unable to contract for safety. The patient presenting with suicide attempt and current suicidal ideation. The patient reported that she took extra of her prescribed medication as well as Tylenol last night trying to commit suicide. The patient reported current suicidal ideation with a plan to overdose on her medication. The patient stated that she does not trust herself. She wants to take overdose. The patient reports staying in a hotel last night. The patient reported no support system, endorsing feeling of hopelessness and worthlessness. Denied any homicidal ideation. Denied any psychotic symptom or any substance abuse. Needing inpatient admission at this time for psychiatric stabilization. PAST PSYCHIATRIC HISTORY Remarkable for history of multiple admission, last admission 06/23/2016 and discharged on 07/04/2016. FAMILY HISTORY AND SOCIAL HISTORY The patient has a poor support system. No history of any abuse. No history of any substance abuse. Currently, homeless and having financial problems. MEDICAL HISTORY Remarkable for history of blood clot, treated in the hospital earlier; history of congestive heart failure; hypertension; diabetes; irritable bowel syndrome; chronic obstructive pulmonary disease; irregular heartbeat. Musculoskeletal; muscle strength and tone, no atrophy, abnormal hand movements noted, and abnormal gait. MEDICATIONS The patient is on Desyrel, Celexa, Cardizem, Vistaril, Micronase, Zestril, Proventil inhaler. ALLERGIES No known drug allergies. Unit #: [id number] #: [id number] Patient: SHANIKA BAEZA SUBSTANCE ABUSE HISTORY None. REVIEW OF SYSTEMS HEENT: Eyes, clear. Ears, nose, mouth, and throat; clear. CARDIOVASCULAR: Unremarkable. RESPIRATORY: Unremarkable. GI: Unremarkable. : Unremarkable. SKIN: Unremarkable. LYMPH NODE: Unremarkable. NEUROLOGIC: Unremarkable. ENDOCRINE: Unremarkable. HEMATOLOGIC: Unremarkable. ALLERGIC/IMMUNOLOGIC: Unremarkable. MUSCULOSKELETAL: Muscle strength and tone, no atrophy or abnormal movement. Gait normal. MENTAL STATUS EXAMINATION CONSTITUTIONAL: Measurement of vital signs; temperature 98.1, pulse 109, respirations 18, oxygen saturation 99%, blood pressure 118/73. Height 5 feet 2 inches, weight is 130 pounds. GENERAL APPEARANCE: The patient dressed casually in hospital attire, pleasant and cooperative, sad, depressed, anxious. No facial deformity noted. MUSCULOSKELETAL: Please see above. PSYCHIATRIC EXAMINATION Description of speech; slow in volume, but rapid in rate. Thought process, circumstantial. Description of association, intact. Description of abnormal psychotic thinking; the patient denied any hallucination or delusions, but reported having suicidal ideation, suicidal plan, but no homicidal ideation. Denied any psychotic symptom. Description of the patient's judgment; concerning everyday activity, poor. Social situation, poor. Concerning psychiatric condition, poor. Complete mental status examination; oriented in time, place, and person. Recent and remote memory, fair. Attention span and concentration, fair. Language, able to name object and repeat phrases. Fund of knowledge, aware of current event and passive vocabulary intact. Mood and affect, sad and dysphoric. Insight and judgment, fair to poor. ASSETS AND LIABILITIES Assets; the patient articulate and able to take care of her ADL. Liability, history of depression. ADMITTING DIAGNOSES Psychiatric: 1. Major depressive disorder, recurrent, severe, F33.2. 2. Anxiety disorder, not otherwise specified, F41.9. Secondary diagnosis: Deferred. Medical diagnoses: Hypertension, chronic obstructive pulmonary disease, history of atrial fibrillation, diabetes mellitus, asthma. Stressors: Psychosocial stressor, homelessness, financial problem. PSYCHIATRIC PLAN AND TREATMENT GOAL Unit #: [id number] #: [id number] Patient: SHANIKA BAEZA 1. Advised to admit the patient on the inpatient unit. Provide safe, supportive, and structured environment. 2. Ordered labs; UA and UDS. 3. Advised to resume home medication. If needed, consider further adjustment of medication. Treatment goal to attain euthymic mood, gain insight into her problem, and learn coping skills. DISCHARGE PLAN Plan to stabilize the patient and consider followup in outpatient program. Also work with the healthcare social worker about discharge planning. ESTIMATED LENGTH OF STAY 5 to 7 days. Dictated by... Fabien Hoskins/pelon TD: 07/07/2016 05:32 JOB #: [id number] PSYCHIATRIC ASSESSMENT Page 1 of 1 X Sharath Kingsley MD PSYCHIATRIC ASSESSMENT
--- NOTE | ~2016-07-05 | A ---
[facility] Therapy DATE: 07/15/16 Patient: SHANIKA BAEZA Physician: JAYME Address: NO PERMANENT ADDRESS Room/Bed: [address], Zip: [place] [address] Admit Date: 07/05/16 Date of : [birth year] Height: 5 2 Weight: [phone] NUTRITIONAL ASSESSMENT: REASON: LENGTH OF STAY PATIENT ADMITTED FOR DEPRESSION AND SI PMH: HTN, COPD, A-FIB, DM, ASTHMA Anthropometrics: HT: 5'2", WT: 130#, BMI: 23.8, %IBW: 118 Labs: NO LABS AVAILABLE Meds: SEROQUEL, DESYREL, VISTARIL, NEURONTIN, ZESTRIL, CELEXA Assessment: PATIENT IS A 50 Y/O FEMALE ADMITTED FOR SI AND DEPRESSION. PATIENT IS CURRENTLY ON DISABILITY, HOMELESS, AND DENIES ANY SUBSTANCE ABUSE. PATIENT HAS VERY FREQUENT ADMISSIONS TO THIS FACILITY. HER LAST D/C WAS 07/04/16. RD ASSESSED 06/06/16 (4X IN LAST 4 MONTHS) - NOTE REVIEWED. PRIOR TO ADMIT PATIENT HAS BEEN NON-COMPLIANT WITH HER MEDICATIONS. UPON ADMIT PATIENT STATED HER APPETITE IS "NOT GOOD" AND SHE DENIES WEIGHT LOSS. NURSING REPORTS CONSISTENTLY GOOD PO INTAKES. THERE ARE NO SKIN OR GI ISSUES NOTED ATT. PATIENT IS ON A HEART HEALTHY DIET. Dx: NO NUTRITION DX Intervention: HEALTHY HEART DIET, MEDS PER MD, PSYCH Monitoring, Evaluation and Goals: 1. ADEQUATE PO INTAKES >50% OF MEALS 2. PREVENT, CORRECT MICRO/MACRO NUTRIENT DEFICIENCIES MONITOR: WEIGHTS, LABS, PO/FLUID INTAKES Recommendations: 1. CONTINUE HEART HEALTHY DIET TOLERATED 2. ENCOURAGE ADEQUATE PO AND FLUID INTAKES RD TO F/U PER PROTOCOL AND PRN R/T PATIENT NOT AT NUTRITIONAL RISK ATT Respectfully, [facility] Therapy DATE: 07/15/16 Patient: SHANIKA BAEZA Physician: JAYME Address: NO PERMANENT ADDRESS Room/Bed: [address], Zip: [place] [address] Admit Date: 07/05/16 Date of : [birth year] Height: 5 2 Weight: [phone], LD [facility] cc: client file
--- NOTE | ~2016-07-05 | PN ---
Unit #: [id number] #: [id number] Patient: SHANIAK BAEZA [id number] [facility] [address] [place] [address] [id number] MR#: [id number] NAME: SHANIKA BAEZA. ROOM: 15 Age: 50 Sex: F Admission Date: 07/05/2016 : 1965 Attending Physician: Sharath Kingsley M.D. Admitting Physician: Sharath Kingsley M.D. Primary Care Physician: Primary Care Physician Yolis DE LA VEGA PROGRESS NOTES DATE OF SERVICE 07/14/2016 DISCUSSION Shanika Baeza is a 50-year-old female seen on 07/14/2016. Patient interviewed, chart reviewed, I obtained information from nursing staff. Patient mood continues to be sad, dysphoric, flat affect. Patient was cooperative, denied any side effects from medication. Patient is eating good, sleeping good, no side effects from medication. COMPLETE REVIEW OF SYSTEMS Unremarkable. MENTAL STATUS EXAMINATION GENERAL APPEARANCE: Patient dressed in hospital attire. ATTENTION SPAN AND CONCENTRATION: Fair. Oriented in time, place and person. MOOD AND AFFECT: Sad, dysphoric, flat. SPEECH: Monotone. THOUGHT PROCESS: [place]. Patient reports making progress, but still unable to contract for safety if discharged home today. RECENT AND REMOTE MEMORY: Poor. INSIGHT AND JUDGMENT: Poor. DIAGNOSIS Major depressive disorder, recurrent ASSESSMENT/PLAN Advised to continue with current medication and therapeutic protocol. If needed, consider further adjustment on medication. Dictated by... Fabien Hoskins/jackie TD: 07/15/2016 04:04 JOB #: [id number] Unit #: [id number] #: [id number] Patient: SHANIKA BAEZA PROGRESS NOTES Page 1 of 1 X Sharath Kingsley MD X PROGRESS NOTE
--- NOTE | ~2016-07-05 | PN ---
Unit #: [id number] #: [id number] Patient: SHANIKA BAEZA [id number] [facility] [address] [place] [address] [id number] MR#: [id number] NAME: SHANIKA BAEZA. ROOM: 15 Age: 50 Sex: F Admission Date: 07/05/2016 : 1965 Attending Physician: Sharath Kingsley M.D. Admitting Physician: Sharath Kingsley M.D. Primary Care Physician: Primary Care Physician Yolis DE LA VEGA PROGRESS NOTES DATE 07/13/2016 DISCUSSION Ms. Shanika Baeza is a 50-year-old female, seen on 07/13/2016. The patient interviewed, chart reviewed, and obtained information from the nursing staff. The patient reported still feeling sad, depressed, withdrawn, isolative, anxious, nervous, reported having problem with cough. Vital signs are stable, 98.8, 85, 16, and 114/63. REVIEW OF SYSTEMS Complete review of systems unremarkable. MENTAL STATUS EXAMINATION General appearance: Patient dressed casually. Attention span and concentration, fair. Oriented to place and person. Mood and affect, sad and dysphoric. Speech, monotone. Thought process, concrete. The patient reported having suicidal ideation, unable to contract for safety, guarded. Recent and remote memory, poor. Insight and judgment, poor. DIAGNOSIS Major depressive disorder, recurrent. ASSESSMENT/PLAN Advised to continue with the current medication and therapeutic protocol and if needed consider adjustment of medication. Dictated by... Fabien Hoskins/abram TD: 07/14/2016 09:20 JOB #: [id number] Unit #: [id number] #: [id number] Patient: SHANIKA BAEZA PROGRESS NOTES Page 1 of 1 X Sharath Kingsley MD PROGRESS NOTE
--- NOTE | ~2016-07-05 | HP ---
Unit #: [id number] #: [id number] Patient: SHANIKA BAEZA [id number] [place] [address] [id number] I MR#: [id number] NAME: SHANIKA BAEZA. ROOM: 15 Age: 50 Sex: F Admission Date: 07/05/2016 : 1965 Attending Physician: Sharath Kingsley M.D. Admitting Physician: Sharath Kingsley M.D. Primary Care Physician: Primary Care Physician No HISTORY AND PHYSICAL HISTORY OF PRESENT ILLNESS Shanika is a 50 year old admitted back to [address] [place] [address] after being discharged less than 24 hours ago. PAST MEDICAL HISTORY 1. Morbid obesity 2. High blood pressure 3. COPD 4. History of atrial fib 5. Diabetes mellitus 6. Asthma PAST SURGICAL HISTORY Cholecystectomy ALLERGIES Erythromycin, sulfa, omeprazole. SOCIAL HISTORY She denies cigarettes, alcohol and illicit drug use. FAMILY HISTORY Medically noncontributory. REVIEW OF SYSTEMS CONSTITUTIONAL: No fever or chills. HEENT: Denies any sore throat, ear pain or runny nose. CARDIOVASCULAR: Denies chest pain, irregular heart rhythm or palpitations. CHEST: Denies shortness of breath or cough. No hemoptysis. GASTROINTESTINAL: Denies nausea, vomiting, diarrhea or chronic constipation. ENDOCRINE: Denies history of increased thirst or urination. No recent significant weight loss or gain. GENITOURINARY: Denies dysuria, frequency, or hematuria. SKIN: Denies any rashes. HEMATOLOGIC: Denies history of increased bleeding or bruising. MUSCULOSKELETAL: Denies any hot, swollen joints. No generalized muscle pain. NEUROLOGIC: Denies problems with vision or speech. No frequent, severe headaches. No numbness, tingling or weakness in any extremities. Denies loss of bladder or bowel control. Unit #: [id number] #: [id number] Patient: SHANIKA BAEZA CURRENT MEDICATIONS 1. Seroquel 50 mg q.h.s. 2. Desyrel 50 mg q.h.s. 3. Milk of Magnesia p.r.n. 4. Maalox p.r.n. 5. Tylenol p.r.n. 6. Vistaril 25 mg t.i.d. 7. Neurontin 100 mg t.i.d. 8. Cardizem CD 120 mg daily 9. Zestril 20 mg daily 10. Celexa 40 mg daily 11. Micronase 2.5 mg q.a.m. PHYSICAL EXAMINATION GENERAL: Alert, morbidly obese, in no apparent distress. VITAL SIGNS: Blood pressure 118/72, heart rate 100, respirations 16, temperature 98.6. WEIGHT: 130 pounds. HEIGHT: 5'2". SKIN: Warm and dry without rash or lesion. HEENT: Normocephalic. TMs not viewed. Oral and nasal passages clear. Conjunctivae clear. Pupils equal, round and reactive to light and accommodation. Extraocular movements intact. NECK: Supple without lymphadenopathy or thyromegaly. HEART: Regular rate and rhythm without murmur. LUNGS: Clear. ABDOMEN: Soft, nontender. : Not done. EXTREMITIES: No evidence of cyanosis, clubbing or edema. Moves all extremities without focal deficit. NEUROLOGICAL: Grossly within normal limits. Cranial Nerves: II: Visual bobo are intact. III, IV AND : Extraocular movements are intact. Pupils are equal, round and reactive to light. V: Facial sensation is grossly normal. VII: Facial movements and expression are normal. VIII: Auditory acuity grossly intact. IX, X: Uvula is midline. Phonation is normal. XI: Patient shrugs shoulders and turns head normally. XII: Tongue protrudes in the midline. Sensory and Motor Function: Sensory and motor sensation is grossly normal. Motor: moves all extremities well. Coordination: Gait is normal. Deep Tendon Reflexes: Intact. IMPRESSION Psychiatric admission RECOMMENDATIONS PSYCHIATRIC: Per psychiatrist. MEDICAL: I see no contraindications to participating in facility's activities. MEDICAL PROGNOSIS Good. MEDICAL CONDITION Stable. Unit #: [id number] #: [id number] Patient: SHANIKA BAEZA Dictated by... Laura Calixto P.A.-C. for Fabien Stephens/maryuri TD: 07/05/2016 23:32 JOB #: [id number] HISTORY AND PHYSICAL Page 1 of 1 X Laura Calixto X HISTORY AND PHYSICAL
--- NOTE | ~2016-07-05 | PN ---
Unit #: [id number] #: [id number] Patient: SHANIKA BAEZA [id number] [facility] [address] [place] [address] [id number] I MR#: [id number] NAME: SHANIKA BAEZA. ROOM: [facility] Age: 50 Sex: F Admission Date: 07/05/2016 : 1965 Attending Physician: Sharath Kingsley M.D. Admitting Physician: Sharath Kingsley M.D. Primary Care Physician: Primary Care Physician Yolis VIEYRA NOTES DATE OF SERVICE: 07/09/2016 DISCUSSION Shanika Baeza is a 50-year-old female, seen on 07/09/2016. The patient interviewed, chart reviewed, and obtained information from nursing staff. The patient continues to report having suicidal ideation, flat, sad, dysphoric mood. Vital signs stable; temperature 99.9, pulse 135, respirations 20, and blood pressure 152/82. The patient is tolerating medication fairly well. No side effects from medication. Complete review of systems unremarkable. MENTAL STATUS EXAMINATION General appearance, the patient dressed in hospital attire. Attention span and concentration, fair. Oriented in time, place, and person. Mood and affect were sad and dysphoric. Speech, monotone. Thought process, concrete. The patient denied any thoughts of harming others, but having suicidal ideation, unable to contract for safety, guarded. Recent and remote memory, poor. Insight and judgment, poor. DIAGNOSIS Major depressive disorder, recurrent. ASSESSMENT AND PLAN Advised to continue with current medication and therapeutic protocol. If needed, consider further adjustment of medication. Dictated by... Fabien Hoskins/pelon TD: 07/09/2016 12:54 JOB #: [id number] Unit #: [id number] #: [id number] Patient: SHANIKA BAEZA AZALIA NOTES Page 1 of 1 X Sharath Kingsley MD PROGRESS NOTE
--- NOTE | ~2016-07-05 | PN ---
Unit #: [id number] #: [id number] Patient: SHANIKA BAEZA [id number] [facility] [address] [place] [address] [id number] I MR#: [id number] NAME: SHANIKA BAEZA. ROOM: [facility] Age: 50 Sex: F Admission Date: 07/05/2016 : 1965 Attending Physician: Sharath Kingsley M.D. Admitting Physician: Sharath Kingsley M.D. Primary Care Physician: Primary Care Physician Yolis DE LA VEGA PROGRESS NOTES DATE OF SERVICE 07/08/2016 DISCUSSION Ms. Shanika Baeza is a 50-year-old female seen on 07/08/2016. The patient interviewed, chart reviewed. Obtained information from nursing staff. The patient was compliant, cooperative. Mood sad, dysphoric, flat affect. Reported still having suicidal thoughts. Able to contract for safety. Vital Signs: Stable, 98.9, 130, 18, 126/89. Complete Review of Systems: Unremarkable. MENTAL STATUS EXAMINATION General Appearance: The patient dressed in hospital attire. Attention span, concentration: Fair. Oriented in time, place, and person. Mood and affect: Sad, depressed. Speech: Monotone. Thought process: Ducor. The patient denied any thoughts of harming self or others. Recent and remote memory: Poor. Insight and judgment: Poor. DIAGNOSIS Major depressive disorder, recurrent. ASSESSMENT/PLAN Advised to continue with current medication and therapeutic protocol. If needed, consider further adjustment of medication. Dictated by... Fabien Hoskins/jose ramon TD: 07/09/2016 14:17 JOB #: [id number] Unit #: [id number] #: [id number] Patient: SHANIKA BAEZA PROGRESS NOTES Page 1 of 1 X Sharath Kingsley MD PROGRESS NOTE
--- NOTE | ~2016-07-05 | PN ---
Unit #: [id number] #: [id number] Patient: SHANIKA BAEZA [id number] [facility] [address] [place] [address] [id number] I MR#: [id number] NAME: SHANIKA BAEZA. ROOM: 15 Age: 50 Sex: F Admission Date: 07/05/2016 : 1965 Attending Physician: Sharath Kingsley M.D. Admitting Physician: Sharath Kingsley M.D. Primary Care Physician: Primary Care Physician Yolis DE LA VEGA PROGRESS NOTES DATE OF SERVICE: 07/16/2016 DISCUSSION Ms. Shabazz is a 50-year-old female, seen on 07/16/2016. The patient interviewed, chart reviewed, and obtained information from nursing staff. The patient continues to report feeling sad, depressed, but denied any suicidal ideation, plan to consider discharge next week. Vital signs; temperature 98.1, pulse 87, respirations 14, and blood pressure 140/65. The patient is tolerating medication fairly well, impulsive, withdrawn. Complete review of systems unremarkable. MENTAL STATUS EXAMINATION General appearance, the patient dressed casually. Attention span and concentration, fair. Oriented in time, place, and person. Mood and affect were sad and dysphoric. Speech, monotone. Thought process, concrete. The patient denied any thoughts of harming self or others. Recent and remote memory, poor. Insight and judgment, poor. DIAGNOSES Major depressive disorder, recurrent. ASSESSMENT AND PLAN Advised to continue with current medication and therapeutic protocol. If needed, consider further adjustment of medication. Dictated by... Fabien Hoskins/pelon TD: 07/16/2016 18:26 JOB #: [id number] Unit #: [id number] #: [id number] Patient: SHANIKA BAEZA PROGRESS NOTES Page 1 of 1 X Sharath Kingsley MD X PROGRESS NOTE
--- NOTE | ~2016-07-05 | PN ---
Unit #: [id number] #: [id number] Patient: SHANIKA BAEZA [id number] [facility] [address] [place] [address] [id number] I MR#: [id number] NAME: SHANIKA BAEZA. ROOM: 15 Age: 50 Sex: F Admission Date: 07/05/2016 : 1965 Attending Physician: Sharath Kingsley M.D. Admitting Physician: Sharath Kingsley M.D. Primary Care Physician: Primary Care Physician Yolis VIEYRA NOTES DATE OF SERVICE: 07/17/2016 DISCUSSION Ms. Shabazz is a 50-year-old female, seen 07/17/2016. The patient interviewed, chart reviewed, and obtained information from nursing staff. The patient is compliant, cooperative, sleeping good, compliant with medication, making progress, decrease in anxiety. The patient's vital signs stable; temperature 97.6, pulse 99, respirations 14, blood pressure 146/78. REVIEW OF SYSTEMS Complete review of systems unremarkable. MENTAL STATUS EXAMINATION General appearance, the patient dressed casually. Attention span and concentration, fair. Oriented in time, place, and person. Mood and affect were sad and dysphoric, but able to smile. Speech, regular rate. Thought process, coherent. Association, the patient denied any thoughts of harming self or others. Denied any psychotic symptom, but isolative. Recent and remote memory, poor. Insight and judgment, poor. DIAGNOSIS Major depressive disorder, recurrent, F33.2. ASSESSMENT AND PLAN Advised to continue with current medication and therapeutic protocol with a plan to consider discharge tomorrow. The patient continues to maintain safe behavior. Dictated by... Fabien Hoskins/pelon TD: 07/18/2016 03:05 JOB #: [id number] Unit #: [id number] #: [id number] Patient: SHANIKA BAEZA AZALIA NOTES Page 1 of 1 X Sharath Kingsley MD X PROGRESS NOTE
--- NOTE | ~2016-07-05 | PN ---
Unit #: [id number] #: [id number] Patient: SHANIKA BAEZA [id number] [facility] [address] [place] [address] [id number] I MR#: [id number] NAME: SHANIKA BAEZA. ROOM: [facility] Age: 50 Sex: F Admission Date: 07/05/2016 : 1965 Attending Physician: Sharath Kingsley M.D. Admitting Physician: Sharath Kingsley M.D. Primary Care Physician: Primary Care Physician Yolis VIEYRA NOTES DATE OF SERVICE 07/07/2016 DISCUSSION Shanika Baeza is a 50-year-old female seen on 07/07/2016. The patient interviewed, chart reviewed. Obtained information from nursing staff. The patient reported having problem with cough, sore throat, and difficulty breathing. The patient reported still feeling sad, depressed, feeling of hopelessness, suicidal ideation. Complete Review of Systems: Unremarkable. MENTAL STATUS EXAMINATION General Appearance: The patient dressed in hospital attire. Attention span, concentration: Poor. Oriented in place and person. Mood and affect: Sad, dysphoric. Speech: Monotone. Thought process: Goal-directed. The patient denied any thoughts of harming others but still reporting having suicidal ideation. Unable to contract for safety. Recent and remote memory: Poor. Insight and judgment: Poor. DIAGNOSIS Major depressive disorder, recurrent. ASSESSMENT/PLAN Advised to continue with current medication and therapeutic protocol. If needed, consider further adjustment of medication, and also ordered medical consultation for further treatment of upper respiratory tract infection. Dictated by... Fabien Hoskins/jose ramon TD: 07/08/2016 13:19 JOB #: [id number] Unit #: [id number] #: [id number] Patient: SHANIKA BAEZA PROGRESS NOTES Page 1 of 1 X Sharath Kingsley MD X PROGRESS NOTE
[2016-07-12 12:51] LABS: URINE APPEARANCE CLEAR; URINE BILIRUBIN NEG (NEG); URINE BLOOD TRACE (NEG); URINE COLOR YELLOW; URINE GLUCOSE NEG (NEG); URINE KETONE NEG (NEG); URINE LEUKOCYTE ESTERASE 2+ (NEG); URINE NITRATE NEG (NEG); URINE PROTEIN NEG (NEG); URINE SPECIFIC GRAVITY 1.005 (1.003-1.035); URINE UROBILINOGEN 0.2 MG/DL (NEG)
[2016-07-12 12:55] LABS: U HYALINE CASTS AUWI 0-2 /[LPF]; URBCS1 AUWI 0-2 /[HPF] (0-2); URINE BACTERIA AUWI 4+ (NEGATIVE); URINE SQUAMOUS EPITHELIAL CELL NONE SEEN /[HPF]; UWBCS1 AUWI 50-100 (0-5)
[2016-07-12 13:13] LABS: AMPHETAMINE NEG (NEG); BARBITURATES NEG (NEG); BENZODIAZEPINES NEG (NEG); COCAINE NEG (NEG); MARIJUANA NEG (NEG); OPIATES NEG (NEG); TRICYCLIC ANTIDEPRESSANTS POS (NEG); U METHADONE NEG (NEG)
== END 2016-07-18 10:40 | disposition home or self-care (01) | DRG 885 ==
LOC: P1S 16:19
PROVIDERS: Psychiatry & Neurology Psychiatry
DX: F33.2 Major depressive disorder, recurrent severe without psychotic features (principal); I48.91 Unspecified atrial fibrillation; I10 Essential (primary) hypertension; F41.9 Anxiety disorder, unspecified; J44.9 Chronic obstructive pulmonary disease, unspecified; E11.9 Type 2 diabetes mellitus without complications; J45.909 Unspecified asthma, uncomplicated
CPT/HCPCS: 80307; 81003

== ENCOUNTER 2016-07-23 15:00 | Inpatient (IN) | payer MEDICARE, OTHER ==
--- NOTE | ~2016-07-23 | PN ---
Unit #: [id number] #: [id number] Patient: SHANIKA BAEZA [id number] [facility] [address] [place] [address] [id number] I MR#: [id number] NAME: SHANIKA BAEZA. ROOM: P122 Age: 50 Sex: F Admission Date: 07/23/2016 : 1965 Attending Physician: Sharath Kingsley M.D. Admitting Physician: Sharath Kingsley M.D. Primary Care Physician: Primary Care Physician Yolis DE LA VEGA PROGRESS NOTES DATE OF SERVICE 07/26/2016 DISCUSSION Ms. Shanika Baeza is a 50-year-old female seen on 07/26/2016. Patient interviewed, chart reviewed, I obtained information from nursing staff. Patient continues to be isolative, guarded, flat affect, reported not feeling well, flat, sad, dysphoric mood. Patient compliant, cooperative, otherwise compliant with medication but still reporting having suicidal ideation. COMPLETE REVIEW OF SYSTEMS Unremarkable. MENTAL STATUS EXAMINATION GENERAL APPEARANCE: Patient dressed casually. ATTENTION SPAN AND CONCENTRATION: Poor. Oriented in place and person. MOOD AND AFFECT: Labile. SPEECH: Slow. THOUGHT PROCESS: Circumstantial. THOUGHT CONTENT: Denied any homicidal ideation but reported having suicidal ideation if discharged today, unable to contract for safety, guarded. RECENT AND REMOTE MEMORY: Poor. INSIGHT AND JUDGMENT: Poor. DIAGNOSIS Major depressive disorder, recurrent, severe ASSESSMENT/PLAN Advised to continue with current medication and therapeutic protocol. If needed, consider further adjustment on medication. Continue with current precautions to keep patient safe. Dictated by... Fabien Hoskins/jackie Unit #: [id number] #: [id number] Patient: SHANIKA BAEZA TD: 07/27/2016 00:47 JOB #: [id number] [facility] PROGRESS NOTES Page 1 of 1 X Sharath Kingsley MD PROGRESS NOTE
--- NOTE | ~2016-07-23 | PN ---
Unit #: [id number] #: [id number] Patient: SHANIKA BAEZA [id number] [facility] [address] [place] [address] [id number] I MR#: [id number] NAME: SHANIKA BAEZA. ROOM: P122 Age: 50 Sex: F Admission Date: 07/23/2016 : 1965 Attending Physician: Sharath Kingsley M.D. Admitting Physician: Sharath Kingsley M.D. Primary Care Physician: Primary Care Physician Yolis DE LA VEGA PROGRESS NOTES DATE OF SERVICE 07/27/2016 DISCUSSION Shanika Baeza is a 50-year-old female seen on 07/27/2016. Patient interviewed, chart reviewed, I obtained information from nursing staff. Patient continues to report feeling sad, depressed, reported having suicidal ideation. Compliant with medication. Isolative, guarded. No side effect from medication. COMPLETE REVIEW OF SYSTEMS Unremarkable. MENTAL STATUS EXAMINATION GENERAL APPEARANCE: Patient dressed casually. ATTENTION SPAN AND CONCENTRATION: Poor. Oriented in place and person. MOOD AND AFFECT: Sad, depressed. SPEECH: Monotone, poor articulation. THOUGHT PROCESS: Circumstantial. Patient denied any thoughts of harming others but having suicidal ideation, denied any plans, guarded, withdrawn. RECENT AND REMOTE MEMORY: Poor. INSIGHT AND JUDGMENT: Poor. DIAGNOSIS Major depressive disorder, recurrent, severe ASSESSMENT/PLAN Advised to continue with current medication and therapeutic protocol. If needed, consider further adjustment in medication. Continue with the inpatient programming as this patient is unable to contract for safety and continues to endorse suicidal ideation. Dictated by... Fabien Hoskins/jackie TD: 07/28/2016 02:57 Unit #: [id number] #: [id number] Patient: SHANIKA BAEZA JOB #: [id number] [facility] PROGRESS NOTES Page 1 of 1 X Sharath Kingsley MD X PROGRESS NOTE
--- NOTE | ~2016-07-23 | PN ---
Unit #: [id number] #: [id number] Patient: SHANIKA BAEZA [id number] [facility] [address] [place] [address] [id number] I MR#: [id number] NAME: SHANIKA BAEZA. ROOM: P122 Age: 50 Sex: F Admission Date: 07/23/2016 : 1965 Attending Physician: Sharath Kingsley M.D. Admitting Physician: Sharath Kingsley M.D. Primary Care Physician: Primary Care Physician Yolis DE LA VEGA PROGRESS NOTES DATE OF SERVICE: 07/30/2016 DISCUSSION Ms. Shanika Baeza is a 50-year-old female, seen on 07/30/2016. The patient interviewed, chart reviewed, and obtained information from nursing staff. The patient continues to endorse suicidal ideation, sad, depressed, withdrawn, isolative, guarded, but compliant with medication. REVIEW OF SYSTEMS Complete review of systems unremarkable. MENTAL STATUS EXAMINATION General appearance, the patient dressed casually. Attention span and concentration, fair. Oriented in place and person. Mood and affect, labile. Speech, monotone. Thought process, concrete. The patient reported having suicidal ideation, unable to contract for safety. Recent and remote memory, poor. Insight and judgment, poor. DIAGNOSIS Major depressive disorder, recurrent. ASSESSMENT AND PLAN Advised to continue with current medication and therapeutic protocol. If needed, consider further adjustment of medication. Discussed with patient about discharge planning. Dictated by... Fabien Hoskins/pelon TD: 08/01/2016 00:56 JOB #: [id number] Unit #: [id number] #: [id number] Patient: SHANIKA BAEZA PROGRESS NOTES Page 1 of 1 X Sharath Kingsley MD PROGRESS NOTE
--- NOTE | ~2016-07-23 | PN ---
Unit #: [id number] #: [id number] Patient: SHANIKA BAEZA [id number] [facility] [address] [place] [address] [id number] I MR#: [id number] NAME: SHANIKA BAEZA. ROOM: [facility] Age: 50 Sex: F Admission Date: 07/23/2016 : 1965 Attending Physician: Sharath Kingsley M.D. Admitting Physician: Fabien Hoskins PROGRESS NOTES DATE OF SERVICE: 07/24/2016 DISCUSSION Ms. Shabazz is a 50-year-old female, seen on 07/24/2016. The patient interviewed, chart reviewed, and obtained information from nursing staff. The patient continues to be sad, dysphoric, flat affect, guarded, unable to contract for safety and slept good. Vital signs are stable. Temperature 98.1, pulse 96, respirations 14, blood pressure 150/77. Isolative. Flat affect. Complete review of systems unremarkable. MENTAL STATUS EXAMINATION General appearance, the patient dressed casually. Attention span and concentration, fair. Oriented in time, place, and person. Mood and affect, sad and dysphoric. Speech, monotone. Thought process, concrete. The patient denied any thoughts of harming self or others. Recent and remote memory, fair. Unable to contract for safety. Insight and judgment, impaired. DIAGNOSES Major depressive disorder, recurrent, moderate to severe. ASSESSMENT AND PLAN Advised to continue with current medication and therapeutic protocol. If needed, consider further adjustment of medication. Dictated by... Fabien Hoskins/pelon TD: 07/24/2016 13:52 JOB #: [id number] Unit #: [id number] #: [id number] Patient: SHANIKA BAEZA PROGRESS NOTES Page 1 of 1 X Sharath Kingsley MD PROGRESS NOTE
--- NOTE | ~2016-07-23 | PN ---
Unit #: [id number] #: [id number] Patient: SHANIKA BAEZA [id number] [facility] [address] [place] [address] [id number] I MR#: [id number] NAME: SHANIKA BAEZA. ROOM: P122 Age: 50 Sex: F Admission Date: 07/23/2016 : 1965 Attending Physician: Sharath Kingsley M.D. Admitting Physician: Sharath Kingsley M.D. Primary Care Physician: Primary Care Physician Yolis DE LA VEGA PROGRESS NOTES DATE 07/29/2016 DISCUSSION Ms. Shanika Baeza is a 50-year-old female seen on 07/29/2016. The patient interviewed, chart reviewed. Obtained information from nursing staff on 07/29/2016. The patient was compliant and cooperative. Mood sad, dysphoric, flat affect, guarded, isolative. Reported still having suicidal thoughts. The patient had some interactions with staff and peer. Complete review of systems unremarkable. MENTAL STATUS EXAMINATION The patient dressed casually. Attention span and concentration poor. Oriented to place and person. Mood and affect sad, dysphoric. Speech monotone. Thought process concrete. The patient reporting having suicidal ideation unable to contract for safety if discharged today denied any homicidal ideation or any psychotic symptoms. Recent and remote memory fair to poor. Insight and judgement fair to poor. DIAGNOSES Major depressive disorder recurrent moderate ASSESSMENT/PLAN Advise to continue with current medication and therapeutic protocol. If needed consider further adjustment of medication. Dictated by... Fabien Hoskins/maryuri TD: 08/01/2016 01:49 JOB #: [id number] Unit #: [id number] #: [id number] Patient: SHANIKA BAEZA PROGRESS NOTES Page 1 of 1 X Sharath Kingsley MD PROGRESS NOTE
--- NOTE | ~2016-07-23 | PN ---
Unit #: [id number] #: [id number] Patient: SHANIKA BAEZA [id number] [facility] [address] [place] [address] [id number] I MR#: [id number] NAME: SHANIKA BAEZA. ROOM: P122 Age: 50 Sex: F Admission Date: 07/23/2016 : 1965 Attending Physician: Sharath Kingsley M.D. Admitting Physician: Sharath Kingsley M.D. Primary Care Physician: Yolis Primary Care Physician CEFERINO VIEYRA NOTES DATE OF SERVICE 07/31/2016 DISCUSSION Ms. Shanika Baeza is a 50-year-old female seen on 07/31/2016. Patient interviewed, chart reviewed, and obtained information from nursing staff. Patient's vital signs are stable: 98.2, 93, 14, and 150/79. Mood sad, dysphoric. Flat affect, but denied any thoughts of harming self or others. Patient reported that she would like to stay here until the so that she could go to a place close to [facility] with her family. REVIEW OF SYSTEMS Complete review of systems unremarkable. MENTAL STATUS EXAMINATION GENERAL APPEARANCE: Patient dressed casually. ATTENTION SPAN AND CONCENTRATION: Fair. ORIENTATION: Oriented in place and person. MOOD AND AFFECT: Sad, dysphoric. SPEECH: Regular rate. THOUGHT PROCESS: Goal-directed. Patient denied any thoughts of harming self or others. Denied any psychotic symptoms. RECENT AND REMOTE MEMORY: Poor. INSIGHT AND JUDGEMENT: Poor. DIAGNOSES Major depressive disorder, recurrent. ASSESSMENT/PLAN Advised to continue with current medication and therapeutic protocol with a plan to consider discharge tomorrow. Dictated by... Fabien Hoskins/anisha TD: 08/02/2016 10:09 JOB #: [id number] Unit #: [id number] #: [id number] Patient: SHANIKA BAEZA CEFERINO VIEYRA NOTES Page 1 of 1 X Sharath Kingsley MD PROGRESS NOTE
--- NOTE | ~2016-07-23 | HP ---
Unit #: [id number] #: [id number] Patient: SHANIKA BAEZA [id number] [facility] [address] [place] [address] [id number] I MR#: [id number] NAME: SHANIKA BAEZA. ROOM: P122 Age: 50 Sex: F Admission Date: 07/23/2016 : 1965 Attending Physician: Sharath Kingsley M.D. Admitting Physician: Sharath Kingsley M.D. Primary Care Physician: Primary Care Physician No HISTORY AND PHYSICAL The patient is a 50-year-old female admitted to [address] [place] [address] on 07/23/2016 for suicidal ideations. The patient had a recent admission on 07/05/2016 where a full history and physical was completed. That history and physical has been reviewed, no changes need to be made. Dictated by... Jen Blair/maryuri TD: 07/25/2016 03:05 JOB #: [id number] HISTORY AND PHYSICAL Page 1 of 1 X JUANCARLOS MARTINES APRN X HISTORY AND PHYSICAL
--- NOTE | ~2016-07-23 | PN ---
Unit #: [id number] #: [id number] Patient: SHANIKA BAEZA [id number] [facility] [address] [place] [address] [id number] I MR#: [id number] NAME: SHANIKA BAEZA. ROOM: P122 Age: 50 Sex: F Admission Date: 07/23/2016 : 1965 Attending Physician: Sharath Kingsley M.D. Admitting Physician: Sharath Kingsley M.D. Primary Care Physician: Primary Care Physician Yolis VIEYRA NOTES DATE 07/28/2016 DISCUSSION Ms. Shanika Baeza is a 50-year-old female, seen on 07/28/2016. The patient interviewed, chart reviewed, and obtained information from the nursing staff. The patient continues to be seclusive, isolative, flat affect, sad, dysphoric mood. The patient reported having suicidal ideation, able to contract for safety. REVIEW OF SYSTEMS Complete review of systems unremarkable. MENTAL STATUS EXAMINATION General appearance: Patient dressed casually in hospital attire, withdrawn, isolative, flat affect. Attention span and concentration, fair. Oriented to time, place, and person. Mood and affect, sad and depressed. Speech, monotone. Thought process, concrete. The patient denied any thoughts of harming others but having suicidal ideation, unable to contract for safety, guarded. Recent and remote memory, poor. Insight and judgment, poor. DIAGNOSIS Major depressive disorder, recurrent, severe. ASSESSMENT/PLAN Advised to continue with the current medication and therapeutic protocol, and if needed consider further adjustment of medication. Dictated by... Fabien Hoskins/abram TD: 07/29/2016 07:52 JOB #: [id number] Unit #: [id number] #: [id number] Patient: SHANIKA BAEZA PROGRESS NOTES Page 1 of 1 X Sharath Kingsley MD PROGRESS NOTE
--- NOTE | ~2016-07-23 | PN ---
Unit #: [id number] #: [id number] Patient: SHANIKA BAEZA [id number] [facility] [address] [place] [address] [id number] I MR#: [id number] NAME: SHANIKA BAEZA. ROOM: P122 Age: 50 Sex: F Admission Date: 07/23/2016 : 1965 Attending Physician: Sharath Kingsley M.D. Admitting Physician: Sharath Kingsley M.D. Primary Care Physician: Primary Care Physician Yolis VIEYRA NOTES DATE OF SERVICE: 07/25/2016 DISCUSSION Shanika Baeza is a 50-year-old female, seen on 07/25/2016. The patient interviewed, chart reviewed, and obtained information from nursing staff. The patient reported not feeling well, isolative, guarded, flat affect. The patient declined family session or in touch with the family. The patient isolative, guarded, reported feeling sad, depressed, having suicidal ideation. No side effects from medication. REVIEW OF SYSTEMS Complete review of systems unremarkable. MENTAL STATUS EXAMINATION General appearance, the patient dressed casually. Attention span and concentration, fair. Oriented in time, place, and person. Mood and affect, sad and dysphoric. Speech, slow and poor articulation. Thought process, circumstantial. The patient denied any thoughts of harming others, but having suicidal ideation, unable to contract for safety if discharged today. Recent and remote memory, poor. Insight and judgment, poor. DIAGNOSIS Major depressive disorder, recurrent, moderate. ASSESSMENT/PLAN Advised to continue with current medication. We will closely monitor. If needed, consider further adjustment of medication. Dictated by... Fabien Hoskins/pelon TD: 07/26/2016 03:20 JOB #: [id number] Unit #: [id number] #: [id number] Patient: SHANIKA BAEZA SKIPSHANNA AZAILA NOTES Page 1 of 1 X Sharath Kingsley MD PROGRESS NOTE
--- NOTE | ~2016-07-23 | PA ---
Unit #: [id number] #: [id number] Patient: SHANIKA BAEZA [id number] [facility] [address] [place] [address] [id number] I MR#: [id number] NAME: SHANIKA BAEZA. ROOM: [facility] Age: 50 Sex: F Admission Date: 07/23/2016 : 1965 Date of Assessment: 07/24/2016 Attending Physician: Sharath Kingsley M.D. Admitting Physician: Sharath Kingsley M.D. Primary Care Physician: Primary Care Physician No PSYCHIATRIC ASSESSMENT INFORMANT The patient reliability, fair informant; chart reliability, good. CHIEF COMPLAINT Depression and suicidal ideation. HISTORY OF PRESENT ILLNESS Ms. Shanika Baeza is a 50-year-old female, presented with the above-mentioned complaint. The patient is well known to us from her previous admission. The patient reported that she was living in a motel and started chest pain and shortness of air. Subsequently, the patient was seen at [facility], where she reported that she is having suicidal ideation, unable to contract for safety. The patient denied any use of drugs or alcohol. Reported no psychotic symptom at this time. The patient needed inpatient admission at this time for psychiatric stabilization. PAST PSYCHIATRIC HISTORY Remarkable for history of depression; history of multiple admissions at [facility] , last admission on 07/06/2016. FAMILY HISTORY AND SOCIAL HISTORY The patient has a poor support system. No history of any abuse. No history of any substance abuse. Currently, homeless and having financial problem. MEDICAL HISTORY Remarkable for history of blood clot, treated in the hospital earlier; history of recent chest pain, treated at [facility]; history of congestive heart failure; hypertension; diabetes; irritable bowel syndrome; chronic obstructive pulmonary disease; irregular heartbeat. Musculoskeletal; muscle strength and tone, no atrophy or abnormal movement. Abnormal gait noted. MEDICATIONS The patient is on Desyrel, Celexa, Cardizem, Vistaril, Micronase, Zestril, Proventil inhaler. ALLERGIES No known drug allergies. SUBSTANCE ABUSE HISTORY None. Unit #: [id number] #: [id number] Patient: SHANIKA BAEZA REVIEW OF SYSTEMS HEENT: Eyes, clear. Ears, nose, mouth, and throat; clear. CARDIOVASCULAR: Unremarkable. RESPIRATORY: Unremarkable. GI: Unremarkable. : Unremarkable. SKIN: Unremarkable. LYMPH NODE: Unremarkable. NEUROLOGIC: Unremarkable. ENDOCRINE: Unremarkable. HEMATOLOGIC: Unremarkable. ALLERGIC/IMMUNOLOGIC: Unremarkable. MUSCULOSKELETAL: Muscle strength and tone, no atrophy or abnormal movement. Gait abnormal. MENTAL STATUS EXAMINATION CONSTITUTIONAL: Measurement of vital signs; temperature 98.1, pulse 96, respirations 14, oxygen saturation 99%, blood pressure 150/77, height 5 feet 2 inches, weight 120 pounds. GENERAL APPEARANCE: The patient dressed casually. No facial deformity noted. MUSCULOSKELETAL: Please see above. PSYCHIATRIC EXAMINATION Description of speech; slow in volume and rate. Description of thought process, circumstantial. Description of association, intact. Description of abnormal psychotic thinking; denied any hallucination or delusions, but mentioned suicidal ideation, unable to contract for safety, denied any homicidal ideation. Description of the patient's judgment, concerning everyday activity, poor. Social situation, poor. Concerning psychiatric condition, poor. Complete mental status examination; oriented in time, place, and person. Recent and remote memory, fair. Attention span and concentration, fair. Language; able to name object and repeat phrases. Fund of knowledge; aware of current event and past history. Vocabulary, intact. Mood and affect; sad and dysphoric. Insight and judgment, fair to poor. ASSETS AND LIABILITIES Assets; the patient is articulate and able to take care of her ADL. Liability; history of depression. ADMITTING DIAGNOSES Psychiatric: Major depressive disorder, recurrent, severe, F33.2; anxiety disorder, not otherwise specified, F41.9. Secondary diagnosis: Deferred. Medical diagnosis: Hypertension, chronic obstructive pulmonary disease, history of atrial fibrillation, diabetes mellitus, asthma. Stressors: Psychosocial stressor, homelessness, financial problem. PSYCHIATRIC PLAN 1. Advised to admit the patient on the inpatient unit. Provide safe, supportive, and structured environment. 2. Ordered labs; UA and UDS. Unit #: [id number] #: [id number] Patient: SHANIKA BAEZA 3. Advised to resume home medication. If needed, consider further adjustment of medication. The patient to attend all the programing on the inpatient unit, group therapy, individual therapy, structured milieu, expressive therapy. TREATMENT GOAL To attain euthymic mood, gain insight into her problem, and learn coping skills. DISCHARGE PLAN Plan to stabilize the patient and consider followup in outpatient program. ESTIMATED LENGTH OF STAY 5 to 7 days. Dictated by... Fabien Hoskins/pelon TD: 07/24/2016 17:05 JOB #: [id number] PSYCHIATRIC ASSESSMENT Page 1 of 1 X Sharath Kingsley MD PSYCHIATRIC ASSESSMENT
--- NOTE | ~2016-07-23 | DS ---
Unit #: [id number] #: [id number] Patient: SHANIKA BAEZA [id number] [facility] [place] [place] [address] [id number] MR#: [id number] NAME: SHANIKA BAEZA. ROOM: [facility] Age: 50 Sex: F Admission Date: 07/23/2016 : 1965 Discharge Date: 08/01/2016 Attending Physician: Sharath Kingsley M.D. Primary Care Physician: Primary Care Physician No DISCHARGE SUMMARY REASON FOR ADMISSION Depression and suicidal ideation. DIAGNOSTIC STUDIES LABORATORY RESULTS: Unremarkable. HOSPITAL COURSE The patient was admitted to inpatient unit on 07/23/2016 and discharged on 08/01/2016. The patient was treated on the inpatient unit with group therapy, individual therapy, medication management. The patient responded well with the above modalities of treatment. The patient reported that she would like to stay till the first of the month. The patient was explained that she cannot stay in the hospital as she does not meet criteria and made progress and received maximum benefit from the treatment. The patient reports that she has no place to go. The patient was advised that the social studies department chair is going to work on the placement and was advised [facility]. The patient was wanted to stay in the hospital because of no place to live. The patient was given several options, but the patient decline. At this time, we are discharging the patient as the patient received maximum benefit from the treatment and was able to maintain safe behavior. DISCHARGE MEDICATIONS Celexa 40 mg daily for depression, Micronase 2.5 mg before breakfast for diabetes, trazodone 50 mg at bedtime for sleep, Seroquel 150 mg at bedtime for mood symptom, Vistaril 25 mg t.i.d. for anxiety, Zestril 20 mg daily for hypertension, Cardizem CD 120 mg daily for hypertension, Claritin 10 mg daily for allergies, Neurontin 100 mg t.i.d. for anxiety. DISCHARGE DIAGNOSES Psychiatric: 1. Major depressive disorder, recurrent, severe, F33.2. 2. Anxiety disorder, not otherwise specified, F41.9. Secondary diagnosis: Deferred. Medical diagnoses: Hypertension, chronic obstructive pulmonary disease, history of atrial fibrillation, diabetes mellitus, asthma. Stressors: Psychosocial stressor, homelessness, financial problem. DISCHARGE INSTRUCTIONS The patient to follow up in outpatient clinic as per social studies department chair. Unit #: [id number] #: [id number] Patient: SHANIKA BAEZA CONDITION ON DISCHARGE The patient was pleasant and cooperative. Denied any psychotic symptom or any suicidal ideation. PROGNOSIS Guarded. DIET AND ACTIVITY As tolerated. Dictated by... Fabien Hoskins/pelon TD: 08/02/2016 03:29 JOB #: [id number] DISCHARGE SUMMARY Page 1 of 1 X Sharath Kingsley MD X DISCHARGE SUMMARY
== END 2016-08-01 16:55 | disposition home or self-care (01) | DRG 885 ==
LOC: P1S 19:33
DX: F33.2 Major depressive disorder, recurrent severe without psychotic features (principal); I48.91 Unspecified atrial fibrillation; R45.851 Suicidal ideations; F41.9 Anxiety disorder, unspecified; Z59.0 Homelessness; I10 Essential (primary) hypertension; J44.9 Chronic obstructive pulmonary disease, unspecified; J45.909 Unspecified asthma, uncomplicated; E11.9 Type 2 diabetes mellitus without complications

== ENCOUNTER 2016-08-01 16:56 | Inpatient (IN) | payer MEDICARE, OTHER ==
--- NOTE | ~2016-08-01 | PN ---
Unit #: [id number] #: [id number] Patient: SHANIKA BAEZA [id number] [facility] [address] [place] [address] [id number] I MR#: [id number] NAME: SHANIKA BAEZA. ROOM: P202 Age: 50 Sex: F Admission Date: 08/01/2016 : 1965 Attending Physician: Sharath Kingsley M.D. Admitting Physician: Sharath Kingsley M.D. Primary Care Physician: Primary Care Physician Yolis VIEYRA NOTES DATE OF SERVICE: 08/07/2016 DISCUSSION Ms. Shanika Baeza is a 50-year-old female, seen on 08/07/2016. The patient interviewed, chart reviewed, and obtained information from nursing staff. The patient is compliant and cooperative. Mood is sad, dysphoric, but able to maintain safe behavior, participating in the program. Denied any thoughts of harming self or others. REVIEW OF SYSTEMS Complete review of systems unremarkable. MENTAL STATUS EXAMINATION General appearance, the patient dressed casually. Attention span and concentration, fair. Oriented in place and person. Mood and affect, labile. Speech, monotone. Thought process, concrete. The patient denied any thoughts of harming self or others. Recent and remote memory, poor. Insight and judgment, poor. DIAGNOSIS Major depressive disorder, recurrent. ASSESSMENT AND PLAN Advised to continue with current medication and therapeutic protocol. If needed, consider further adjustment of medication. Dictated by... Fabien Hoskins/pelon TD: 08/07/2016 20:54 JOB #: [id number] Unit #: [id number] #: [id number] Patient: SHANIKA BAEZA PROGRESS NOTES Page 1 of 1 X Sharath Kingsley MD PROGRESS NOTE
--- NOTE | ~2016-08-01 | PN ---
Unit #: [id number] #: [id number] Patient: SHANIKA BAEZA [id number] [facility] [address] [place] [address] [id number] I MR#: [id number] NAME: SHANIKA BAEZA. ROOM: P202 Age: 50 Sex: F Admission Date: 08/01/2016 : 1965 Attending Physician: Sharath Kingsley M.D. Admitting Physician: Sharath Kingsley M.D. Primary Care Physician: Primary Care Physician Yolis [place] PROGRESS NOTES DATE OF SERVICE 08/03/2016 DISCUSSION Ms. Shanika Baeza is a 50-year-old female seen on 08/03/2016. Patient interviewed, chart reviewed, I obtained information from nursing staff. Patient is tolerating medication fairly well, mood sad, dysphoric, isolative, guarded, flat affect. Patient did not show any aggressive behavior. COMPLETE REVIEW OF SYSTEMS Unremarkable. MENTAL STATUS EXAMINATION GENERAL APPEARANCE: Patient dressed casually. ATTENTION SPAN AND CONCENTRATION: Fair. Oriented in time, place and person. MOOD AND AFFECT: Sad, depressed. SPEECH: Monotone. THOUGHT PROCESS: [place]. Patient denied any thoughts of harming self or others. RECENT AND REMOTE MEMORY: Poor. INSIGHT AND JUDGMENT: Poor. DIAGNOSIS Major depressive disorder, recurrent ASSESSMENT/PLAN Advised to continue with current medication and therapeutic protocol. Continue with the inpatient program as patient is still unable to contract for safety. Dictated by... Fabien Hoskins/jackie TD: 08/03/2016 23:16 JOB #: [id number] Unit #: [id number] #: [id number] Patient: SHANIKA BAEZASHANNA PROGRESS NOTES Page 1 of 1 X Sharath Kingsley MD X PROGRESS NOTE
--- NOTE | ~2016-08-01 | DS ---
Unit #: [id number] #: [id number] Patient: SHANIKA BAEZA [id number] [facility] [address] [place] [address] [id number] MR#: [id number] NAME: SHANIKA BAEZA. ROOM: [facility] Age: 50 Sex: F Admission Date: 08/01/2016 : 1965 Discharge Date: 08/08/2016 Attending Physician: Sharath Kingsley M.D. Primary Care Physician: Primary Care Physician No DISCHARGE SUMMARY REASON FOR ADMISSION Depression. DIAGNOSTIC STUDIES LABORATORY RESULTS: Unremarkable. HOSPITAL COURSE The patient was admitted to inpatient unit on 08/01/2016 and discharged on 08/08/2016. The patient was treated on the inpatient unit with structured milieu, psychoeducation, psychotherapy, and expressive therapy. The patient was able to maintain safe behavior, showed improvement. Compliant with medication. No side effects from medication. Subsequently, the patient was discharged with a plan to follow up in outpatient program. DISCHARGE MEDICATIONS Celexa 40 mg daily for mood symptom, Micronase 2.5 mg in the morning for diabetes, Seroquel 50 mg at bedtime for mood stabilization, Neurontin 100 mg t.i.d. for anxiety, Vistaril 25 mg t.i.d. for anxiety, Zestril 20 mg daily for hypertension, Cardizem CD 120 mg daily for hypertension. DISCHARGE DIAGNOSES Psychiatric: Major depressive disorder, recurrent, severe, F33.2; anxiety disorder, not otherwise specified, F41.9. Secondary diagnosis: Deferred. Medical diagnoses: Hypertension, chronic obstructive pulmonary disease, history of atrial fibrillation, diabetes, asthma. Stressors: Psychosocial stressor, homelessness, financial problem. DISCHARGE INSTRUCTIONS The patient to follow up in outpatient clinic as per medical social consultant. CONDITION ON DISCHARGE The patient was pleasant and cooperative. Denied any psychotic symptom or any suicidal ideation. PROGNOSIS Guarded. DIET AND ACTIVITY As tolerated. Unit #: [id number] #: [id number] Patient: SHANIKA BAEZA Dictated by... Fabien Hoskins/pelon TD: 08/08/2016 16:18 JOB #: [id number] DISCHARGE SUMMARY Page 1 of 1 X Sharath Kingsley MD DISCHARGE SUMMARY
--- NOTE | ~2016-08-01 | PA ---
Unit #: [id number] #: [id number] Patient: SHANIKA BAEZA [id number] [facility] [address] [place] [address] [id number] MR#: [id number] NAME: SHANIKA BAEZA. ROOM: [facility] Age: 50 Sex: F Admission Date: 08/01/2016 : 1965 Date of Assessment: Attending Physician: Sharath Kingsley M.D. Admitting Physician: Sharath Kingsley M.D. Primary Care Physician: Primary Care Physician No PSYCHIATRIC ASSESSMENT INFORMANTS The patient reliability, fair informant and chart reliability, good. CHIEF COMPLAINT Suicidal ideation. HISTORY OF PRESENT ILLNESS Ms. Shanika Baeza is a 50-year-old female, who was discharged yesterday, readmitted with similar complaints. The patient has a history of multiple admissions. The patient was discharged from [facility] yesterday and returned reporting experiencing anxiety and paranoid. The patient reported that she leaves the hospital and she will do something she will regret. The patient reported suicidal ideation with a plan to take overdose. The patient denied any homicidal ideation or any psychotic symptom or any substance abuse. The patient was unable to contract for safety. Subsequently, the patient was admitted in the hospital for psychiatric stabilization. PAST PSYCHIATRIC HISTORY Remarkable for history of depression. History of multiple admissions at [facility], last admission on 07/24/2016. FAMILY HISTORY AND SOCIAL HISTORY The patient has poor support system. No history of any abuse. No history of any substance abuse. Currently, homeless and having financial problem. MEDICAL HISTORY Remarkable for history of blood clot treated in the hospital earlier. History of recent chest pain, treated at [facility]. History of congestive heart failure, hypertension, diabetes, irritable bowel syndrome, chronic obstructive pulmonary disease, and irregular heartbeat. Musculoskeletal; muscle strength and tone, no atrophy or abnormal movement. Gait normal. MEDICATION HISTORY The patient is on Desyrel, Celexa, Cardizem, Vistaril, Micronase, Zestril, and Proventil inhaler. ALLERGIES No known drug allergies. SUBSTANCE ABUSE HISTORY None. Unit #: [id number] #: [id number] Patient: SHANIKA BAEZA REVIEW OF SYSTEMS HEENT: Eyes, clear. Ears, nose, mouth, and throat; clear. CARDIOVASCULAR: Unremarkable. RESPIRATORY: Unremarkable. GI: Unremarkable. : Unremarkable. SKIN: Unremarkable. LYMPH NODE: Unremarkable. NEUROLOGIC: Unremarkable. ENDOCRINE: Unremarkable. HEMATOLOGIC: Unremarkable. ALLERGIC/IMMUNOLOGIC: Unremarkable. MUSCULOSKELETAL: Muscle strength and tone, no atrophy or abnormal movement. Gait normal. MENTAL STATUS EXAMINATION CONSTITUTIONAL: Measurement of vital signs; temperature 98.0, heart rate 110, respiratory rate 18, and blood pressure 150/79. Height 5 feet and weight 141 pounds. GENERAL APPEARANCE: The patient dressed casually. No facial deformity noted. MUSCULOSKELETAL: Please see above. PSYCHIATRIC EXAMINATION Description of speech, rapid in rate. Description of thought process, circumstantial. Description of association, intact. Description of abnormal psychotic thinking; the patient denied any hallucinations or delusions, but reported having suicidal ideation and unable to contract for safety. Denied any homicidal ideation. Description of the patient's judgment; concerning everyday activity, poor. Social situation, poor. Concerning psychiatric condition, poor. Complete mental status examination; oriented in time, place, and person. Recent and remote memory, fair. Attention span and concentration, fair. Language, able to name object and repeat phrases. Fund of knowledge, aware of current event and passive vocabulary intact. Mood and affect, sad and dysphoric. Insight and judgment, fair to poor. ASSETS AND LIABILITIES Assets, the patient is articulate and able to take care of her ADL. Liability, history of depression and suicidal ideation. ADMITTING DIAGNOSES Psychiatric: Major depressive disorder, recurrent, severe, F33.2 and anxiety disorder, not otherwise specified, F41.9. Secondary diagnosis: Deferred. Medical diagnoses: Hypertension, chronic obstructive pulmonary disease, history of atrial fibrillation, diabetes mellitus, and asthma. Stressors: Psychosocial stressor, homelessness, and financial problem. PSYCHIATRIC PLAN AND TREATMENT GOAL AND DISCHARGE PLAN 1. Advised to admit the patient on the inpatient unit. Provide safe, supportive, and structured environment. 2. Plan to get labs, UA and UDS. 3. Advised to resume home medication. If needed, consider further Unit #: [id number] #: [id number] Patient: SHANIKA BAEZA adjustment of medication. The patient to resume medication such as Desyrel 50 mg at bedtime, Seroquel 50 mg at bedtime, Motrin 400 mg t.i.d., Claritin 10 mg daily, Cardizem CD 120 mg daily, Zestril 20 mg daily, Vistaril 25 mg t.i.d., Neurontin 100 mg t.i.d., Micronase 2.5 mg in the morning, and Celexa 40 mg daily. The patient to attend all the programing, group therapy, and individual therapy. TREATMENT GOAL To attain euthymic mood, gain insight into her problem, and learn coping skills. DISCHARGE PLAN Plan to stabilize the patient and consider placement in a personal group home or a residential. ESTIMATED LENGTH OF STAY 5 to 7 days. Dictated by... Fabien Hoskins/pelon TD: 08/02/2016 21:31 JOB #: [id number] PSYCHIATRIC ASSESSMENT Page 1 of 1 X Sharath Kingsley MD X PSYCHIATRIC ASSESSMENT
--- NOTE | ~2016-08-01 | PN ---
Unit #: [id number] #: [id number] Patient: SHANIKA BAEZA [id number] [facility] [address] [place] [address] [id number] MR#: [id number] NAME: SHANIKA BAEZA. ROOM: P202 Age: 50 Sex: F Admission Date: 08/01/2016 : 1965 Attending Physician: Sharath Kingsley M.D. Admitting Physician: Sharath Kingsley M.D. Primary Care Physician: Primary Care Physician Yolis DE LA VEGA PROGRESS NOTES DATE OF SERVICE: 08/04/2016 DISCUSSION Ms. Shabazz is a 50-year-old female, seen on 08/04/2016. The patient interviewed, chart reviewed, and obtained information from nursing staff. The patient compliant and cooperative. Mood, sad and dysphoric. Flat affect and guarded. The patient still having suicidal ideation. Reported not feeling well. Isolative and guarded. REVIEW OF SYSTEMS Complete review of systems unremarkable. MENTAL STATUS EXAMINATION General appearance, the patient dressed casually. Attention span and concentration, fair. Oriented in place and person. Mood and affect, sad and dysphoric. Speech, monotone. Thought process, concrete. The patient denied any thoughts of harming self or others, but having passive SI. Recent and remote memory, poor. Insight and judgment, poor. DIAGNOSIS Major depressive disorder, recurrent. ASSESSMENT AND PLAN Advised to continue with current medication and therapeutic protocol. If needed, consider further adjustment of medication. Dictated by... Fabien Hoskins/pelon TD: 08/05/2016 15:01 JOB #: [id number] Unit #: [id number] #: [id number] Patient: SHANIKA BAEZA PROGRESS NOTES Page 1 of 1 X Sharath Kingsley MD PROGRESS NOTE
--- NOTE | ~2016-08-01 | PN ---
Unit #: [id number] #: [id number] Patient: SHANIKA BAEZA [id number] [facility] [address] [place] [address] [id number] I MR#: [id number] NAME: SHANIKA BAEZA. ROOM: P202 Age: 50 Sex: F Admission Date: 08/01/2016 : 1965 Attending Physician: Sharath Kingsley M.D. Admitting Physician: Sharath Kingsley M.D. Primary Care Physician: Primary Care Physician Yolis DE LA VEGA PROGRESS NOTES DATE OF SERVICE: 08/06/2016 DISCUSSION Ms. Shanika Baeza is a 50-year-old female, seen on 08/06/2016. The patient interviewed, chart reviewed, and obtained information from nursing staff. The patient compliant and cooperative. Mood is sad, dysphoric, flat affect, isolative. The patient reported having passive SI, but denied any plans. No complaints. REVIEW OF SYSTEMS Complete review of systems unremarkable. MENTAL STATUS EXAMINATION General appearance, the patient dressed casually. Attention span and concentration, fair. Oriented in time, place, and person. Mood and affect, sad and dysphoric. Speech, monotone. Thought process, concrete. The patient denied any thoughts of harming self or others, but withdrawn, isolative. Recent and remote memory, poor. Insight and judgment, poor. DIAGNOSIS Major depressive disorder, recurrent. ASSESSMENT/PLAN Advised to continue with current medication and therapeutic protocol with a plan to consider next week on Monday if the patient continues to show improvement in her mood and mood stability. Dictated by... Fabien Hoskins/pelon TD: 08/07/2016 23:22 JOB #: [id number] Unit #: [id number] #: [id number] Patient: SHANIKA BAEZA PROGRESS NOTES Page 1 of 1 X Sharath Kingsley MD PROGRESS NOTE
--- NOTE | ~2016-08-01 | HP ---
Unit #: [id number] #: [id number] Patient: SHANIKA BAEZA [id number] [facility] [address] [place] [address] [id number] I MR#: [id number] NAME: SHANIKA BAEZA. ROOM: P202 Age: 50 Sex: F Admission Date: 08/01/2016 : 1965 Attending Physician: Sharath Kingsley M.D. Admitting Physician: Sharath Kingsley M.D. Primary Care Physician: Primary Care Physician No HISTORY AND PHYSICAL Shanika is a 50 year old who was discharged less than 12 hours ago. At the time of discharge, she was given a bus ride. She did not get on her bus but simply walked up the hill back to our intake assessment area and was readmitted. The patient was seen and H and P dated 07/05/16 was reviewed. This is current. No changes. Please see H and P dated 07/05/16. Dictated by... Laura Calixto P.A.-C. for Fabien Stephens/miri TD: 08/02/2016 15:53 JOB #: [id number] HISTORY AND PHYSICAL Page 1 of 1 X Laura Calixto HISTORY AND PHYSICAL
--- NOTE | ~2016-08-01 | PN ---
Unit #: [id number] #: [id number] Patient: SHANIKA BAEZA [id number] [facility] [address] [place] [address] [id number] MR#: [id number] NAME: SHANIKA BAEZA. ROOM: P202 Age: 50 Sex: F Admission Date: 08/01/2016 : 1965 Attending Physician: Sharath Kingsley M.D. Admitting Physician: Sharath Kingsley M.D. Primary Care Physician: Primary Care Physician Yolis DE LA VEGA PROGRESS NOTES DATE 08/05/2016 DISCUSSION Shanika Baeza is a 50-year-old female seen on 08/05/2016. Patient interviewed. Chart reviewed. Obtained information from nursing staff. Patient continues to be isolative, flat affect, sad, dysphoric. Denied any suicidal ideation but still sad, depressed, withdrawn, flat affect. Complete review of system unremarkable. MENTAL STATUS EXAMINATION General appearance, patient dressed casually. Attention span, concentration fair. Oriented in time, place and person. Mood and affect sad, depressed. Speech monotone. Thought process concrete. Patient reported having congestion, not feeling well. Denied any suicidal ideation but withdrawn, isolative, guarded, seclusive. Recent and remote memory poor. Insight and judgement poor. DIAGNOSIS Major depressive disorder, recurrent, moderate. ASSESSMENT/PLAN Advised to continue with current medication and therapeutic protocol. If needed, consider further adjustment of medication. Dictated by... Fabien Hoskins/miri TD: 08/06/2016 22:08 JOB #: [id number] Unit #: [id number] #: [id number] Patient: SHAINKA BAEZA PROGRESS NOTES Page 1 of 1 X Sharath Kingsley MD X PROGRESS NOTE
== END 2016-08-08 14:25 | disposition home or self-care (01) | DRG 885 ==
LOC: P2S 19:52
DX: F33.2 Major depressive disorder, recurrent severe without psychotic features (principal); I48.91 Unspecified atrial fibrillation; I10 Essential (primary) hypertension; F41.9 Anxiety disorder, unspecified; J44.9 Chronic obstructive pulmonary disease, unspecified; E11.9 Type 2 diabetes mellitus without complications; J45.909 Unspecified asthma, uncomplicated; Z59.0 Homelessness

== ENCOUNTER 2016-08-09 18:00 | Inpatient (IN) | payer MEDICARE, OTHER ==
--- NOTE | ~2016-08-09 | HP ---
Unit #: [id number] #: [id number] Patient: SHANIKA BAEZA [id number] [place] [address] [id number] I MR#: [id number] NAME: SHANIKA BAEZA. ROOM: P252 Age: 50 Sex: F Admission Date: 08/09/2016 : 1965 Attending Physician: Sharath Kingsley M.D. Admitting Physician: Sharath Kingsley M.D. Primary Care Physician: Primary Care Physician No HISTORY AND PHYSICAL HISTORY OF PRESENT ILLNESS Shanika is a 50 year old admitted again to [address] [place] [address] after reporting continued depression and verbalizing wanting to hurt herself. She was discharged from this facility less than 48 hours ago. PAST MEDICAL HISTORY 1. Morbid obesity. 2. High blood pressure. 3. COPD. 4. History of atrial fib. 5. Diabetes mellitus. 6. Asthma. PAST SURGICAL HISTORY Cholecystectomy. ALLERGIES Erythromycin, sulfa, omeprazole. SOCIAL HISTORY She denies cigarettes, alcohol and illicit drug use. FAMILY HISTORY Medically noncontributory. REVIEW OF SYSTEMS CONSTITUTIONAL: No fever or chills. HEENT: Denies any sore throat, ear pain or runny nose. CARDIOVASCULAR: Denies chest pain, irregular heart rhythm or palpitations. CHEST: Denies shortness of breath or cough. No hemoptysis. GASTROINTESTINAL: Denies nausea, vomiting, diarrhea or chronic constipation. ENDOCRINE: Denies history of increased thirst or urination. No recent significant weight loss or gain. GENITOURINARY: Denies dysuria, frequency, or hematuria. SKIN: Denies any rashes. HEMATOLOGIC: Denies history of increased bleeding or bruising. MUSCULOSKELETAL: Denies any hot, swollen joints. No generalized muscle pain. NEUROLOGIC: Denies problems with vision or speech. No frequent, severe headaches. No numbness, tingling or weakness in any extremities. Denies loss of bladder or bowel control. Unit #: [id number] #: [id number] Patient: SHANIKA BAEZA CURRENT MEDICATIONS 1. Desyrel 50 mg q.h.s. 2. Vistaril 25 mg t.i.d. 3. Milk of Magnesia p.r.n. 4. Maalox p.r.n. 5. Tylenol p.r.n. 6. Ibuprofen p.r.n. 7. Seroquel 50 mg q.h.s. 8. Neurontin 100 mg t.i.d. 9. Claritin 10 mg daily. 10. Cardizem CD 120 mg daily. 11. Zestril 20 mg daily. 12. Celexa 40 mg daily. 13. Micronase 2.5 mg q.a.m. PHYSICAL EXAMINATION GENERAL: Alert, morbidly obese, in no apparent distress. VITAL SIGNS: Blood pressure 150/68, heart rate 92, respirations 16, temperature 98.6. WEIGHT: 120. HEIGHT: 5 feet 2 inches. SKIN: Warm and dry without rash or lesion. HEENT: Normocephalic. TMs not viewed. Oral and nasal passages clear. Conjunctivae clear. PERRLA. EOMs intact. NECK: Supple without lymphadenopathy or thyromegaly. HEART: Regular rate and rhythm without murmur. LUNGS: Clear. ABDOMEN: Soft, nontender. : Not done. EXTREMITIES: No evidence of cyanosis, clubbing or edema. Moves all without focal deficit. NEUROLOGICAL: Grossly within normal limits. Cranial Nerves: II: Visual bobo are intact. III, IV AND : Extraocular movements are intact. Pupils are equal, round and reactive to light. V: Facial sensation is grossly normal. VII: Facial movements and expression are normal. VIII: Auditory acuity grossly intact. IX, X: Uvula is midline. Phonation is normal. XI: Patient shrugs shoulders and turns head normally. XII: Tongue protrudes in the midline. Sensory and Motor Function: Sensory and motor sensation is grossly normal. Motor: moves all extremities well. Coordination: Gait is normal. Deep Tendon Reflexes: Intact. IMPRESSION Psychiatric admission. RECOMMENDATIONS PSYCHIATRIC: Per psychiatrist. MEDICAL: See no contraindications to participate in facility's activities. MEDICAL PROGNOSIS Good. MEDICAL CONDITION Stable. Unit #: [id number] #: [id number] Patient: SHANIKA BAEZA Dictated by... Laura Calixto P.A.-C. for Fabien Stephens/miri TD: 08/10/2016 19:45 JOB #: [id number] HISTORY AND PHYSICAL Page 1 of 1 X Laura Calixto HISTORY AND PHYSICAL
--- NOTE | ~2016-08-09 | DS ---
Unit #: [id number] #: [id number] Patient: SHANIKA BAEZA [id number] [facility] [address] [place] [address] [id number] I MR#: [id number] NAME: SHANIKA BAEZA. ROOM: [facility] Age: 50 Sex: F Admission Date: 08/09/2016 : 1965 Discharge Date: 08/18/2016 Attending Physician: Sharath Kingsley M.D. Primary Care Physician: Primary Care Physician No DISCHARGE SUMMARY REASON FOR ADMISSION Depression and suicidal ideation. DIAGNOSTIC STUDIES LABORATORY RESULTS: Unremarkable. HOSPITAL COURSE The patient was admitted to inpatient unit on 08/09/2016 and discharged on 08/18/2016. The patient was treated on the inpatient unit with group therapy, individual therapy, medication management, and structured milieu. The patient responded well with the above modalities of treatment. Subsequently, the patient was discharged with a plan to follow up in outpatient program. DISCHARGE MEDICATIONS Keflex 500 mg t.i.d. for 2 days for infection, Celexa 40 mg daily for mood symptom, Micronase 2.5 mg in the morning for diabetes, Seroquel 50 mg at bedtime for mood stabilization, Neurontin 100 mg t.i.d. for anxiety, Vistaril 25 mg t.i.d. for anxiety, Zestril 20 mg daily for hypertension, and Cardizem CD 120 mg daily for hypertension. DISCHARGE DIAGNOSES Psychiatric: 1. Major depressive disorder, recurrent, severe, F33.2. 2. Anxiety disorder, not otherwise specified, F41.9. Secondary diagnosis: Deferred. Medical diagnoses: Hypertension, chronic obstructive pulmonary disease, history of atrial fibrillation, diabetes, asthma. Stressors: Psychosocial stressors, homelessness, financial problem. DISCHARGE INSTRUCTIONS The patient is to follow up in outpatient clinic as per secondary social studies teacher. CONDITION ON DISCHARGE The patient was pleasant and cooperative. Denied any psychotic symptom or any suicidal ideation. PROGNOSIS Guarded. DIET AND ACTIVITY Unit #: [id number] #: [id number] Patient: SHANIKA BAEZA As tolerated. Dictated by... Sharath Kingsley M.D. SZC/bisil TD: 08/18/2016 22:19 JOB #: [id number] DISCHARGE SUMMARY Page 1 of 1 X Sharath Kingsley MD DISCHARGE SUMMARY
--- NOTE | ~2016-08-09 | PN ---
Unit #: [id number] #: [id number] Patient: SHANIKA BAEZA [id number] [facility] [address] [place] [address] [id number] I MR#: [id number] NAME: SHANIKA BAEZA. ROOM: P252 Age: 50 Sex: F Admission Date: 08/09/2016 : 1965 Attending Physician: Sharath Kingsley M.D. Admitting Physician: Sharath Kingsley M.D. Primary Care Physician: Primary Care Physician Yolis DE LA VEGA PROGRESS NOTES DATE 08/15/2016 DISCUSSION Shanika is a 50-year-old female seen on 08/15/2016. The patient dressed casually laying comfortably in bed. Patient withdrawn, isolative, flat, sad, dysphoric, mood. Still having passive SI but reports overall making progress. Reported physically feeling sick. Complete review of systems unremarkable. MENTAL STATUS EXAMINATION General appearance, the patient dressed casually. Attention span and concentration fair. Oriented to time, place and person. Mood and affect sad, depressed, withdrawn. Speech monotone. Thought process concrete. The patient reported having passive SI. Denied any homicidal ideation, guarded, withdrawn, isolative, seclusive. Recent and remote memory poor. Insight and judgement poor. DIAGNOSES Major depressive disorder recurrent severe. ASSESSMENT/PLAN Advise to continue with current medication and therapeutic protocol. If needed consider further adjustment of medication. Dictated by... Fabien Hoskins/maryuri TD: 08/16/2016 22:54 JOB #: [id number] Unit #: [id number] #: [id number] Patient: SHANIKA BAEZA PROGRESS NOTES Page 1 of 1 X Sharath Kingsley MD X PROGRESS NOTE
--- NOTE | ~2016-08-09 | PN ---
Unit #: [id number] #: [id number] Patient: SHANIKA BAEZA [id number] [facility] [address] [place] [address] [id number] MR#: [id number] NAME: SHANIKA BAEZA. ROOM: P252 Age: 50 Sex: F Admission Date: 08/09/2016 : 1965 Attending Physician: Sharath Kingsley M.D. Admitting Physician: Fabien Hoskins NOTES DATE OF SERVICE: 08/13/2016 DISCUSSION Shanika Baeza is a 50-year-old female, seen on 08/13/2016. The patient interviewed, chart reviewed, and obtained information from nursing staff. The patient withdrawn, isolative, flat affect, sad, and dysphoric. She is still reporting having suicidal ideation, but denied any plan. REVIEW OF SYSTEMS Complete review of systems is unremarkable. MENTAL STATUS EXAMINATION General appearance, the patient's hygiene and grooming were poor. Attention span and concentration, fair. Oriented in place and person. Mood and affect, sad, and depressed. Speech, monotone. Thought process, concrete. The patient reported having suicidal ideation, but denied any plan. The patient's withdrawn. Flat recent and remote memory, poor. Insight and judgment, poor. DIAGNOSES Major depressive disorder, recurrent, severe. ASSESSMENT AND PLAN Advised to continue with current medication and therapeutic protocol. If needed, consider further adjustment of medication. The patient was seen by the medical doctor, and advised cephalexin 500 mg t.i.d. for 7 days for upper respiratory tract infection. Dictated by... Fabien Hoskins/pelon TD: 08/13/2016 16:20 JOB #: [id number] Unit #: [id number] #: [id number] Patient: SHANIKA BAEZA AZALIA NOTES Page 1 of 1 X Sharath Kingsley MD PROGRESS NOTE
--- NOTE | ~2016-08-09 | CO ---
Unit #: [id number] #: [id number] Patient: SHANIKA BAEZA [id number] [place] [address] [id number] MR#: [id number] NAME: SHANIKA BAEZA. ROOM: P252 Age: 50 Sex: F Admission Date: 08/09/2016 : 1965 Attending Physician: Sharath Kingsley M.D. Consultation Date: 08/10/2016 CONSULTATION REPORT SUBJECTIVE Shanika is a 50-year-old who requested that we "check me for UTI." Subsequent urinalysis showed no bacteria. She did, however, have a cough productive of yellow sputum. She had no complaints of shortness of breath and there were no recorded increased temperatures. OBJECTIVE GENERAL: Alert, obese, no apparent distress. VITAL SIGNS: Blood pressure 150/68, heart rate 92, respirations 16, temperature 98.6. Weight 140 and height 5 feet 2 inches. HEENT: Normocephalic. TMs shiny bilaterally. Oral and nasal passages clear. NECK: Supple without lymphadenopathy. CHEST: Lungs clear. Harsh cough productive of moderate amounts of yellow sputum noted. ASSESSMENT Bronchitis. PLAN Keflex 500 mg one p.o. t.i.d. x7 days. Dictated by... Laura Calixto PTanaATana-Stepan. for Fabien Stephens/pelon TD: 08/13/2016 22:57 JOB #: [id number] CONSULTATION REPORT Page 1 of 1 X Laura Calixto CONSULTATION REPORT
--- NOTE | ~2016-08-09 | PN ---
Unit #: [id number] #: [id number] Patient: SHANIKA BAEZA [id number] [facility] [address] [place] [address] [id number] MR#: [id number] NAME: SHANIKA BAEZA. ROOM: P252 Age: 50 Sex: F Admission Date: 08/09/2016 : 1965 Attending Physician: Sharath Kingsley M.D. Admitting Physician: Sharath Kingsley M.D. Primary Care Physician: Primary Care Physician Yolis VIEYRA NOTES DATE OF SERVICE: 08/11/2016 DISCUSSION Shanika Baeza is a 50-year-old female, seen on 08/11/2016. The patient interviewed, chart reviewed, and obtained information from nursing staff. The patient continues to be seclusive, isolative, flat affect, poor eye contact, withdrawn, isolative, sad and reported having suicidal ideation. The patient compliant with medication. Denied any other complaints, but still having suicidal ideation. Complete review of systems unremarkable. MENTAL STATUS EXAMINATION General appearance, the patient dressed casually. Attention span and concentration, fair. Oriented in place and person. Mood and affect, sad and depressed. Speech, monotone. Thought process, concrete. The patient denied any thoughts of harming self or others, but guarded. Recent and remote memory, poor. Insight and judgment, poor. DIAGNOSIS Major depressive disorder, recurrent, severe. ASSESSMENT AND PLAN Advised to continue with current medication and therapeutic protocol. If needed, consider further adjustment of medication. Dictated by... Fabien Hoskins/pelon TD: 08/11/2016 18:45 JOB #: [id number] Unit #: [id number] #: [id number] Patient: SHANIKA BAEZA PROGRESS NOTES Page 1 of 1 X Sharath Kingsley MD PROGRESS NOTE
--- NOTE | ~2016-08-09 | PN ---
Unit #: [id number] #: [id number] Patient: SHANIKA BAEZA [id number] [facility] [address] [place] [address] [id number] MR#: [id number] NAME: SHANIKA BAEZA. ROOM: P252 Age: 50 Sex: F Admission Date: 08/09/2016 : 1965 Attending Physician: Sharath Kingsley M.D. Admitting Physician: Sharath Kingsley M.D. Primary Care Physician: Primary Care Physician Yolis VIEYRA NOTES DATE OF SERVICE: 08/12/2016 DISCUSSION Shanika Baeza is a 50-year-old female, seen on 08/12/2016. The patient interviewed, chart reviewed, and obtained information from nursing staff. The patient reported that she is still feeling sad, depressed, and suicidal ideation. Reported not feeling well, having chest congestion and cough. REVIEW OF SYSTEMS Complete review of systems unremarkable. MENTAL STATUS EXAMINATION General appearance, the patient dressed casually. Attention span and concentration, fair. Reported feeling sick. Complaining of cough. Sad, depressed, passive SI, and guarded. Oriented in time, place, and person. Mood and affect, sad and depressed. Speech, monotone. Thought process, concrete. The patient reported having suicidal ideation. Denied any hallucination. Recent and remote memory, poor. Insight and judgment, poor. DIAGNOSIS Major depressive disorder, recurrent, severe. ASSESSMENT AND PLAN Advised to continue with current medication and therapeutic protocol. Ordered medical consultation to evaluate the patient's medical condition. Continue with current medication. If needed, consider further adjustment of medication. Dictated by... Fabien Hoskins/pelon TD: 08/12/2016 20:00 JOB #: [id number] Unit #: [id number] #: [id number] Patient: SHANIKA BAEZA PROGRESS NOTES Page 1 of 1 X Sharath Kingsley MD PROGRESS NOTE
--- NOTE | ~2016-08-09 | PN ---
Unit #: [id number] #: [id number] Patient: SHANIKA BAEZA [id number] [facility] [address] [place] [address] [id number] MR#: [id number] NAME: SHANIKA BAEZA. ROOM: P252 Age: 50 Sex: F Admission Date: 08/09/2016 : 1965 Attending Physician: Sharath Kingsley M.D. Admitting Physician: Sharath Kingsley M.D. Primary Care Physician: Primary Care Physician Yolis DE LA VEGA PROGRESS NOTES DATE OF SERVICE 08/17/2016 DISCUSSION Ms. Shanika Baeza is a 50-year-old female seen on 08/17/2016. The patient interviewed, chart reviewed. Obtained information from nursing staff. The patient seclusive, isolative, flat affect, withdrawn, isolative. Still reporting having passive SI, but able to contract for safety. Complete Review of Systems: Unremarkable. MENTAL STATUS EXAMINATION The patient dressed casually, withdrawn, isolative, flat, sad, dysphoric mood. Attention span, concentration: Fair. Oriented in place and person. Mood and affect: Sad, depressed. Speech: Monotone. Thought process: [place]. The patient denied any thoughts of harming self or others but having off and on those thoughts. Reports getting better. Denied any psychotic symptom. Recent and remote memory: Poor. Insight and judgment: Poor. DIAGNOSIS Major depressive disorder, recurrent, severe. ASSESSMENT/PLAN Advised to continue with current medication and therapeutic protocol. If needed, consider further adjustment of medication. Dictated by... Fabien Hoskins/jose ramon TD: 08/18/2016 11:07 JOB #: [id number] Unit #: [id number] #: [id number] Patient: SHANIKA BAEZA PROGRESS NOTES Page 1 of 1 X Sharath Kingsley MD X PROGRESS NOTE
--- NOTE | ~2016-08-09 | PA ---
Unit #: [id number] #: [id number] Patient: SHANIKA BAEZA [id number] [facility] [address] [place] [address] [id number] MR#: [id number] NAME: SHANIKA BAEZA. ROOM: [facility] Age: 50 Sex: F Admission Date: 08/09/2016 : 1965 Date of Assessment: 08/10/2016 Attending Physician: Sharath Kingsley M.D. Admitting Physician: Sharath Kingsley M.D. Primary Care Physician: Primary Care Physician No PSYCHIATRIC ASSESSMENT INFORMANTS The patient's reliability, fair; chart reliability, good. CHIEF COMPLAINT Suicidal ideation and depression. HISTORY OF PRESENT ILLNESS Ms. Shanika Baeza is a 50-year-old female, who was discharged yesterday, readmitted due to the patient unable to contract for safety. The patient after discharge showed up at [facility] and reported suicidal ideation with a plan to take pills to kill herself. The patient reported that she was discharged too soon from the hospital. The patient has been admitted numerous times since 02/2016, admitted in 01/2016; 02/2016; 03/2016, 03/2016, 03/2016, again three times; in 04/2016 twice; on 05/25/2016; 06/23/2016, 06/25/2016; 07/23/2016, 08/01/2016, and again yesterday. The patient denied any psychotic symptom or any homicidal ideation. The patient needed inpatient admission as the patient was unable to contract for safety. PAST PSYCHIATRIC HISTORY Remarkable for history of depression, history of multiple admission at [facility] as mentioned above. FAMILY HISTORY AND SOCIAL HISTORY The patient has a poor support system. No history of any substance abuse. No history of any abuse. The patient currently homeless, having financial problem. MEDICAL HISTORY Remarkable for blood clot, treated in the hospital earlier; history of recent chest pain, treated at [facility]; history of congestive heart failure; hypertension; diabetes; irritable bowel syndrome; chronic obstructive pulmonary disease; irregular heartbeat. Musculoskeletal; muscle strength and tone, no atrophy or abnormal movement. Gait normal. MEDICATION HISTORY The patient is on Desyrel, Neurontin, Celexa, Cardizem, Vistaril, Micronase, Zestril, and Proventil inhaler. ALLERGIES No known drug allergies. SUBSTANCE ABUSE HISTORY Unit #: [id number] #: [id number] Patient: SHANIKA BAEZA None. REVIEW OF SYSTEMS HEENT: Eyes, clear. Ears, nose, mouth, and throat; clear. CARDIOVASCULAR: Unremarkable. RESPIRATORY: Unremarkable. GI: Unremarkable. : Unremarkable. SKIN: Unremarkable. LYMPH NODE: Unremarkable. NEUROLOGIC: Unremarkable. ENDOCRINE: Unremarkable. HEMATOLOGIC: Unremarkable. ALLERGIC/IMMUNOLOGIC: Unremarkable. MUSCULOSKELETAL: Muscle strength and tone, no atrophy or abnormal movement. Gait normal. MENTAL STATUS EXAMINATION CONSTITUTIONAL: Measurement of vital signs; temperature 98.6, pulse 93, respiratory rate 18, oxygen saturation 98%, and blood pressure 150/68. Height 5 feet 2 inches, weight 120 pounds. GENERAL APPEARANCE: The patient dressed casually. No facial deformity noted. MUSCULOSKELETAL: Please see above. PSYCHIATRIC EXAMINATION Description of speech, slow. Description of thought process, circumstantial. Description of association; guarded, reported suicidal ideation, sad and depressed mood. Denied any hallucination. Description of the patient's judgment; concerning everyday activity, poor. Social situation, poor. Concerning psychiatric condition, poor. Complete mental status examination; oriented in time, place, and person. Recent and remote memory, fair. Attention span and concentration, fair. Language; able to name, object, and repeat phrases. Fund of knowledge, aware of current event and passive vocabulary intact. Mood and affect, sad and dysphoric. Insight and judgment, fair to poor. ASSETS AND LIABILITIES Assets, the patient is articulate and able to take care of her ADL. Liability, history of depression and multiple admission. ADMITTING DIAGNOSES Psychiatric: Major depressive disorder, recurrent, severe, F33.2; anxiety disorder, not otherwise specified, F41.9. Secondary diagnosis: Deferred. Medical diagnosis: Hypertension, chronic obstructive pulmonary disease, history of atrial fibrillation, diabetes mellitus, asthma. Stressors: Psychosocial stressor, homelessness, financial problem. PSYCHIATRIC PLAN 1. Advised to admit the patient on the inpatient unit. Provide safe, supportive, and structured environment. 2. Ordered labs; UA and UDS. 3. Advised to resume home medication. If needed, consider further Unit #: [id number] #: [id number] Patient: SHANIKA BAEZA adjustment of medication. The patient to attend all the programing on the inpatient unit including group therapy, individual therapy, and family session. TREATMENT GOAL To attain euthymic mood, gain insight into her problem, and learn coping skills. DISCHARGE PLAN Plan to stabilize the patient and consider followup in outpatient program. ESTIMATED LENGTH OF STAY 7 to 10 days. Dictated by... Sharath Kingsley M.D. SUZY/pelon TD: 08/10/2016 23:18 JOB #: [id number] PSYCHIATRIC ASSESSMENT Page 1 of 1 X Sharath Kingsley MD X PSYCHIATRIC ASSESSMENT
--- NOTE | ~2016-08-09 | PN ---
Unit #: [id number] #: [id number] Patient: SHANIKA BAEZA [id number] [facility] [address] [place] [address] [id number] I MR#: [id number] NAME: SHANIKA BAEZA. ROOM: P252 Age: 50 Sex: F Admission Date: 08/09/2016 : 1965 Attending Physician: Sharath Kingsley M.D. Admitting Physician: Sharath Kingsley M.D. Primary Care Physician: Primary Care Physician Yolis DE LA VEGA PROGRESS NOTES DATE 08/14/2016 DISCUSSION Ms. Shabazz is a 50-year-old female seen on 08/14/2016. The patient interviewed, chart reviewed. Obtained information from nursing staff. The patient compliant and cooperative. Mood sad, dysphoric, flat affect, guarded. Vital signs stable 98.6, 98, 18, 156/80. The patient still seclusive, isolative, guarded, flat affect. Reported having suicidal ideation. Complete review of systems unremarkable. MENTAL STATUS EXAMINATION General appearance, the patient dressed casually. Attention span and concentration fair. Oriented to time, place and person. Mood and affect sad, depressed. Speech monotone. Thought process concrete. The patient reported having suicidal ideation denied any homicidal ideation, guarded. Recent and remote memory poor. Insight and judgement poor. DIAGNOSES Major depressive disorder recurrent severe. ASSESSMENT/PLAN Advise to continue with current medication and therapeutic protocol. If needed consider further adjustment of medication. Dictated by... Fabien Hoskins/maryuri TD: 08/15/2016 12:59 JOB #: [id number] Unit #: [id number] #: [id number] Patient: SHANIKA BAEZA PROGRESS NOTES Page 1 of 1 X Sharath Kingsley MD PROGRESS NOTE
--- NOTE | ~2016-08-09 | PN ---
Unit #: [id number] #: [id number] Patient: SHANIKA BAEZA [id number] [facility] [address] [place] [address] [id number] MR#: [id number] NAME: SHANIKA BAEZA. ROOM: P252 Age: 50 Sex: F Admission Date: 08/09/2016 : 1965 Attending Physician: Sharath Kingsley M.D. Admitting Physician: Sharath Kingsley M.D. Primary Care Physician: Primary Care Physician Yolis DE LA VEGA PROGRESS NOTES DATE OF SERVICE: 08/16/2016 DISCUSSION Shanika Baeza is a 50-year-old female, seen on 08/16/2016. The patient interviewed, chart reviewed, and obtained information from nursing staff. The patient is a pleasant, cooperative. Affect sad and dysphoric, flat affect, guarded. The patient reports that making progress, but still sad, depressed, passive SI. Vital signs stable; temperature 97.2, pulse 102, and blood pressure 153/85. The patient is currently on antibiotic for upper respiratory tract infection. Complete review of systems unremarkable. MENTAL STATUS EXAMINATION General appearance, the patient dressed casually. Attention span and concentration, fair. Oriented in place and person. Mood and affect, sad and dysphoric. Speech, monotone. Thought process, concrete, withdrawn, isolative, flat, sad, and dysphoric. Recent and remote memory, poor. Insight and judgment, poor. DIAGNOSIS Major depressive disorder, recurrent, severe. ASSESSMENT AND PLAN Advised to continue with current medication and therapeutic protocol. If needed, consider further adjustment of medication. Dictated by... Fabien Hoskins/pelon TD: 08/17/2016 17:03 JOB #: [id number] Unit #: [id number] #: [id number] Patient: SHANIKA BAEZA PROGRESS NOTES Page 1 of 1 X Sharath Kingsley MD PROGRESS NOTE
[2016-08-12 09:59] LABS: URINE APPEARANCE TURBID; URINE BILIRUBIN NEG (NEG); URINE BLOOD 3+ (NEG); URINE COLOR YELLOW; URINE GLUCOSE 250 MG/DL (NEG); URINE KETONE TRACE (NEG); URINE LEUKOCYTE ESTERASE 2+ (NEG); URINE NITRATE NEG (NEG); URINE PH 5.5 (5-8); URINE PROTEIN TRACE (NEG); URINE SPECIFIC GRAVITY 1.025 (1.003-1.035)
[2016-08-12 10:01] LABS: URINE BACTERIA AUWI NEG (NEGATIVE); URINE SQUAMOUS EPITHELIAL CELL FEW /[HPF]; UWBCS1 AUWI 50-100 (0-5)
== END 2016-08-18 13:00 | disposition home or self-care (01) | DRG 885 ==
LOC: P2L 20:30
PROVIDERS: Psychiatry & Neurology Psychiatry
DX: F33.2 Major depressive disorder, recurrent severe without psychotic features (principal); E66.01 Morbid (severe) obesity due to excess calories; I10 Essential (primary) hypertension; J44.9 Chronic obstructive pulmonary disease, unspecified; Z88.1 Allergy status to other antibiotic agents; Z88.2 Allergy status to sulfonamides; J40 Bronchitis, not specified as acute or chronic
CPT/HCPCS: 81003

== ENCOUNTER 2016-08-23 18:19 | Inpatient (IN) | payer MEDICARE, OTHER ==
--- NOTE | ~2016-08-23 | PN ---
Unit #: [id number] #: [id number] Patient: SHANIKA BAEZA [id number] [facility] [address] [place] [address] [id number] MR#: [id number] NAME: SHANIKA BAEZA. ROOM: [facility] Age: 50 Sex: F Admission Date: 08/23/2016 : 1965 Attending Physician: Sharath Kingsley M.D. Admitting Physician: Sharath Kingsley M.D. Primary Care Physician: Primary Care Physician Yolis VIEYRA NOTES DATE OF SERVICE 08/25/16 DISCUSSION Ms. Shabazz is a 50-year-old female. Patient interviewed, chart reviewed. I obtained information from nursing staff. Patient isolative, guarded, flat affect, reported that she is feeling sick, reported she has pink eye, compliant with medication. Vital signs: Stable, 98, 94, 13, 149/76. Patient continues to be isolative, flat affect and reported having suicidal ideation, unable to contract for safety. COMPLETE REVIEW OF SYSTEMS Unremarkable. MENTAL STATUS EXAMINATION GENERAL APPEARANCE: Patient dressed casually. ATTENTION SPAN AND CONCENTRATION: Fair. Oriented in time, place and person. MOOD AND AFFECT: Sad, dysphoric. SPEECH: Monotone. THOUGHT PROCESS: Circumstantial. Patient denied any thoughts of harming others, but having suicidal thoughts and unable to contract for safety. Seclusive, isolative. RECENT AND REMOTE MEMORY: Poor. INSIGHT AND JUDGMENT: Poor. DIAGNOSIS Major depressive disorder, recurrent, severe ASSESSMENT/PLAN Advised to continue with current medication and therapeutic protocol. If needed, consider further adjustment in medication. Dictated by... Sharath Kingsley M.D. [facility] Unit #: [id number] #: [id number] Patient: SHANIKA BAEZA TD: 08/26/2016 03:19 JOB #: [id number] [facility] PROGRESS NOTES Page 1 of 1 X Sharath Kingsley MD PROGRESS NOTE
--- NOTE | ~2016-08-23 | PN ---
Unit #: [id number] #: [id number] Patient: SHANIKA BAEZA [id number] [facility] [address] [place] [address] [id number] MR#: [id number] NAME: SHANIKA BAEZA. ROOM: P110 Age: 50 Sex: F Admission Date: 08/23/2016 : 1965 Attending Physician: Sharath Kingsley M.D. Admitting Physician: Sharath Kingsley M.D. Primary Care Physician: Primary Care Physician Yolis DE LA VEGA PROGRESS NOTES DATE OF SERVICE: 08/26/2016 DISCUSSION Ms. Shabazz is a 50-year-old female, seen on 08/26/2016. The patient continues to be isolative, guarded, flat affect. Reported feeling sick, feeling suicidal, unable to contract for safety. REVIEW OF SYSTEMS Complete review of systems, unremarkable. MENTAL STATUS EXAMINATION General appearance, the patient dressed casually. Attention span and concentration, fair. Oriented in time, place, and person. Mood and affect, sad and dysphoric. Speech, monotone. Thought process, concrete. The patient reported having suicidal ideation, unable to contract for safety. Denied any homicidal ideation. Withdrawn and isolative. Recent and remote memory, poor. Insight and judgment, poor. DIAGNOSIS Major depressive disorder, recurrent. ASSESSMENT AND PLAN Advised to continue with current medication and therapeutic protocol. If needed, consider further adjustment of medication. Dictated by... Fabien Hoskins/pelon TD: 08/27/2016 22:12 JOB #: [id number] Unit #: [id number] #: [id number] Patient: SHANIKA BAEZA [facility] PROGRESS NOTES Page 1 of 1 X Sharath Kingsley MD PROGRESS NOTE
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
--- NOTE | ~2016-08-23 | HP ---
Unit #: [id number] #: [id number] Patient: SHANIKA BAEZA [id number] [facility] [address] [place] [address] [id number] MR#: [id number] NAME: SHANIKA BAEZA. ROOM: P110 Age: 50 Sex: F Admission Date: 08/23/2016 : 1965 Attending Physician: Sharath Kingsley M.D. Admitting Physician: Sharath Kingsley M.D. Primary Care Physician: Primary Care Physician No HISTORY AND PHYSICAL HISTORY OF PRESENT ILLNESS Shanika is a 50 year old admitted to [address] [place] [address] with depression and verbalizing wanting to hurt herself. She has had numerous admissions to this facility for the same. Patient was seen and H and P dated 08/10/16 was reviewed. This is current. No changes except she does have dark yellow discharge from both eyes. Conjunctiva is injected. Negative preauricular lymph nodes. She also has a harsh cough. Lung bobo are clear. IMPRESSION 1. Conjunctivitis. 2. URI. PLAN 1. Ciloxan drops. 2. Levaquin 500 mg 1 p.o. daily. Please see H and P dated 08/10/16 for complete history and physical exam. Dictated by... Laura Calixto P.A.-C. for Fabien Stephens/miri TD: 08/24/2016 22:21 JOB #: [id number] HISTORY AND PHYSICAL Page 1 of 1 X Laura Calixto X HISTORY AND PHYSICAL
--- NOTE | ~2016-08-23 | DS ---
Unit #: [id number] #: [id number] Patient: SHANIKA BAEZA [id number] [facility] [address] [place] [address] [id number] MR#: [id number] NAME: SHANIKA BAEZA. ROOM: [facility] Age: 50 Sex: F Admission Date: 08/23/2016 : 1965 Discharge Date: 08/29/2016 Attending Physician: Sharath Kingsley M.D. Primary Care Physician: Primary Care Physician No DISCHARGE SUMMARY REASON FOR ADMISSION Depression. DIAGNOSTIC STUDIES LABORATORY RESULTS: Unremarkable. HOSPITAL COURSE The patient was admitted to inpatient unit on 08/23/2016 and discharged on 08/29/2016. The patient was treated with medication management, psychotherapy, psychoeducation, and structured milieu. The patient responded well with the above modalities of treatment. Subsequently, the patient was discharged with a plan to follow up in outpatient program. The patient received maximum benefit from the program. DISCHARGE MEDICATIONS Glyburide 2.5 mg daily for diabetes, Neurontin 100 mg t.i.d. for anxiety, Vistaril 25 mg t.i.d. for anxiety, Zestril 20 mg daily for hypertension, Cardizem CD 120 mg daily for hypertension, Ciloxan 2 drops t.i.d., antibiotic eye drops, Seroquel 50 mg at bedtime for sleep, and Desyrel 100 mg at bedtime for sleep. DISCHARGE DIAGNOSES Psychiatric: 1. Major depressive disorder, recurrent, severe, F33.2. 2. Anxiety disorder, not otherwise specified, F41.9. Secondary diagnosis: Deferred. Medical diagnoses: Hypertension, chronic obstructive pulmonary disease, conjunctivitis, history of atrial fibrillation, diabetes, asthma. Stressors: Psychosocial stressors. DISCHARGE INSTRUCTIONS The patient is to follow up in outpatient clinic as per psychiatric social worker supervisor. CONDITION ON DISCHARGE The patient was pleasant and cooperative. Denied any psychotic symptom or any suicidal ideation. PROGNOSIS Guarded. DIET AND ACTIVITY Unit #: [id number] #: [id number] Patient: SHANIKA BAEZA As tolerated. Dictated by... Sharath Kingsley M.D. SZC/bisil TD: 08/29/2016 22:59 JOB #: [id number] DISCHARGE SUMMARY Page 1 of 1 X Sharath Kingsley MD X DISCHARGE SUMMARY
--- NOTE | ~2016-08-23 | PN ---
Unit #: [id number] #: [id number] Patient: SHANIKA BAEZA [id number] [facility] [address] [place] [address] [id number] MR#: [id number] NAME: SHANIKA BAEZA. ROOM: P110 Age: 50 Sex: F Admission Date: 08/23/2016 : 1965 Attending Physician: Sharath Kingsley M.D. Admitting Physician: Sharath Kingsley M.D. Primary Care Physician: Primary Care Physician Yolis DE LA [place]GA PROGRESS NOTES DATE OF SERVICE: 08/27/2016 DISCUSSION Ms. Shanika Baeza is a 50-year-old female, seen on 08/27/2016. The patient was compliant and cooperative. Mood was sad, dysphoric, flat affect. Reported feeling sick. Unable to contract for safety if discharged today. Vital signs; temperature 97.6, pulse 90, respirations 15, and blood pressure 136/75. Complete review of systems unremarkable. MENTAL STATUS EXAMINATION General appearance, the patient dressed casually. Attention span and concentration, poor. Oriented in place and person. Mood and affect, sad and dysphoric. Speech, monotone. Thought process, concrete. The patient reported suicidal ideation, but denied any homicidal ideation. Guarded, withdrawn. Recent and remote memory, poor. Insight and judgment, poor. DIAGNOSIS Major depressive disorder, recurrent, severe. ASSESSMENT AND PLAN Advised to continue with current medication and therapeutic protocol. If needed, consider further adjustment of medication. Dictated by... Fabien Hoskins/pelon TD: 08/29/2016 02:37 JOB #: [id number] [facility] PROGRESS NOTES Page 1 of 1 X Sharath Kingsley MD X PROGRESS NOTE
--- NOTE | ~2016-08-23 | PN ---
Unit #: [id number] #: [id number] Patient: SHANIKA BAEZA [id number] [facility] [address] [place] [address] [id number] MR#: [id number] NAME: SHANIKA BAEZA. ROOM: [facility] Age: 50 Sex: F Admission Date: 08/23/2016 : 1965 Attending Physician: Sharath Kingsley M.D. Admitting Physician: Sharath Kingsley M.D. Primary Care Physician: Primary Care Physician Yolis DE LA [place] PROGRESS NOTES DATE OF SERVICE 08/24/2016 DISCUSSION Ms. Shanika Baeza is a 50-year-old female seen on 08/24/2016. The patient interviewed, chart reviewed. Obtained information from nursing staff. The patient withdrawn, isolative, flat affect, sad, dysphoric. The patient reported feeling sad, depressed, suicidal ideation. Otherwise cooperative. Compliant with medication. Complete Review of Systems: Unremarkable. MENTAL STATUS EXAMINATION General Appearance: The patient dressed casually. Attention span, concentration: Fair. Oriented in time, place, and person. Mood and affect: Sad, depressed. Speech: Slow, poor articulation. Thought process: Circumstantial. The patient reported suicidal ideation and a plan. Denied any homicidal ideation. Able to contract for safety. Withdrawn, isolative. Recent and remote memory: Poor. Insight and judgment: Poor. DIAGNOSIS Major depressive disorder, recurrent, severe. ASSESSMENT/PLAN Advised to continue with current medication and therapeutic protocol. If needed, consider further adjustment of medication. Dictated by... Fabien Hoskins/jose ramon TD: 08/25/2016 12:18 JOB #: [id number] Unit #: [id number] #: [id number] Patient: HSANIKA BAEZA PROGRESS NOTES Page 1 of 1 X Sharath Kingsley MD PROGRESS NOTE
== END 2016-08-29 16:02 | DRG 885 ==
LOC: P1S 20:39
DX: F33.2 Major depressive disorder, recurrent severe without psychotic features (principal); I48.91 Unspecified atrial fibrillation; I10 Essential (primary) hypertension; F41.9 Anxiety disorder, unspecified; J44.9 Chronic obstructive pulmonary disease, unspecified; E11.9 Type 2 diabetes mellitus without complications; J45.909 Unspecified asthma, uncomplicated; Z59.0 Homelessness; J06.9 Acute upper respiratory infection, unspecified; H10.9 Unspecified conjunctivitis

== ENCOUNTER 2016-08-29 14:00 | Inpatient (IN) | payer MEDICARE, OTHER ==
--- NOTE | ~2016-08-29 | PN ---
Unit #: [id number] #: [id number] Patient: SHANIKA BAEZA [id number] [facility] [address] [place] [address] [id number] I MR#: [id number] NAME: SHANIKA BAEZA. ROOM: [facility] Age: 50 Sex: F Admission Date: 08/29/2016 : 1965 Attending Physician: Sharath Kingsley M.D. Admitting Physician: Sharath Kingsley M.D. Primary Care Physician: Primary Care Physician Yolis DE LA [place] PROGRESS NOTES DATE 08/28/2016 DISCUSSION Ms. Shabazz is a 50-year-old female, seen on 08/28/2016. The patient was isolating in room, flat affect, sad, dysphoric mood but denied any thoughts of harming self or others. The patient's vital signs are stable, 97.7, 86, 21, 134/84. REVIEW OF SYSTEMS Complete review of systems unremarkable. MENTAL STATUS EXAMINATION General appearance: Patient dressed casually. Attention span and concentration, poor. Oriented in place and person. Mood and affect, sad and dysphoric. Speech, monotone. Thought process, concrete. The patient denied any thoughts of harming self or others but guarded. Recent and remote memory, poor. Insight and judgment, poor. DIAGNOSIS Major depressive disorder, recurrent, severe. ASSESSMENT/PLAN Advised to continue with the current medication and therapeutic protocol, with a plan to consider discharge next week and follow up in outpatient program such as IOP program. Dictated by... Fabien Hoskins/abram TD: 08/30/2016 06:02 JOB #: [id number] Unit #: [id number] #: [id number] Patient: SHANIKA BAEZA PROGRESS NOTES Page 1 of 1 X Sharath Kingsley MD PROGRESS NOTE
--- NOTE | ~2016-08-29 | DS ---
Unit #: [id number] #: [id number] Patient: SHANIKA BAEZA [id number] [facility] [address] [place] [address] [id number] I MR#: [id number] NAME: SHANIKA BAEZA. ROOM: P110 Age: 50 Sex: F Admission Date: 08/29/2016 : 1965 Discharge Date: 08/31/2016 Attending Physician: Sharath Kingsley M.D. Primary Care Physician: Primary Care Physician No DISCHARGE SUMMARY REASON FOR ADMISSION Depression and suicidal ideation. DIAGNOSTIC STUDIES LABORATORY RESULTS: None. HOSPITAL COURSE The patient was admitted to inpatient unit on 08/29/2016 and discharged on 08/31/2016. The patient was treated on the inpatient unit with expressive therapy, psychotherapy, structured milieu. The patient responsive to treatment. The patient was subsequently discharged with a plan to follow up in outpatient program. The patient was discharged to [facility]. The patient will have a safety check on 09/05/2016. DISCHARGE MEDICATION Glyburide 2.5 mg before breakfast for diabetes, Neurontin 100 mg t.i.d. for anxiety, Vistaril 25 mg t.i.d. for anxiety, Cardizem CD 120 mg daily for hypertension, eye drops for eye infection t.i.d., Seroquel 50 mg at bedtime for mood stabilization, trazodone 100 mg at bedtime for sleep, and Motrin 600 mg q.6 hours p.r.n. for pain. DISCHARGE DIAGNOSES Psychiatric: Major depressive disorder, recurrent, severe, F33.2; anxiety disorder, not otherwise specified, F41.9. Secondary diagnosis: Deferred. Medical diagnosis: Hypertension, chronic obstructive pulmonary disease, conjunctivitis, history of atrial fibrillation, diabetes, and asthma. Stressors: Psychosocial stressors. DISCHARGE INSTRUCTIONS The patient to follow up in outpatient clinic as per social media manager. CONDITION ON DISCHARGE The patient was pleasant and cooperative. Denied any psychotic symptom or any suicidal ideation. PROGNOSIS Guarded. Unit #: [id number] #: [id number] Patient: SHANIKA BAEZA DIET AND ACTIVITY As tolerated. Dictated by... Fabien Hoskins/pelon TD: 08/31/2016 17:30 JOB #: [id number] DISCHARGE SUMMARY Page 1 of 1 X Sharath Kingsley MD DISCHARGE SUMMARY
--- NOTE | ~2016-08-29 | HP ---
Unit #: [id number] #: [id number] Patient: SHANIKA BAEZA [id number] [facility] [address] [place] [address] [id number] MR#: [id number] NAME: SHANIKA BAEZA. ROOM: [facility]110 Age: 50 Sex: F Admission Date: 08/29/2016 : 1965 Attending Physician: Sharath Kingsley M.D. Admitting Physician: Sharath Kingsley M.D. Primary Care Physician: Primary Care Physician No HISTORY AND PHYSICAL HISTORY OF PRESENT ILLNESS Shanika is a 50 year old admitted to [address] [place] [address] because of her reports of continued depression and verbalizing wanting to hurt herself. She was discharged from this facility 2 1/2 hours prior to this readmission. The patient was seen and H and P dated 08/10/2016 was reviewed. This is current. No changes. Please see H and P dated 08/10/2016. Dictated by... Laura Calixto P.A.-C. for Fabien Stephens/maryuri TD: 08/30/2016 23:40 JOB #: [id number] HISTORY AND PHYSICAL Page 1 of X Laura Calixto HISTORY AND PHYSICAL
--- NOTE | ~2016-08-29 | PA ---
Unit #: [id number] #: [id number] Patient: SHANIKA BAEZA [id number] [facility] [address] [place] [address] [id number] I MR#: [id number] NAME: SHANIKA BAEZA. ROOM: [facility] Age: 50 Sex: F Admission Date: 08/29/2016 : 1965 Date of Assessment: 08/30/2016 Attending Physician: Sharath Kingsley M.D. Admitting Physician: Sharath Kingsley M.D. Primary Care Physician: Primary Care Physician No PSYCHIATRIC ASSESSMENT INFORMANTS The patient's reliability, fair; chart reliability, good. CHIEF COMPLAINT Depression and suicidal ideation. HISTORY OF PRESENT ILLNESS Ms. Shanika Baeza is a 50-year-old white female, presented after she was discharged couple of hours ago. The patient presented to the emergency room stating that I feel suicidal today and plan to overdose on my medication. The patient reported I am depressed over my health issue and homeless situation. The patient denied any homicidal ideation. Denied any psychotic symptom. The patient has a history of numerous hospitalization and needed inpatient admission at this time for psychiatric stabilization. PAST PSYCHIATRIC HISTORY Remarkable for history of numerous admission multiple times in 03/24/2016, 04/03/2016, 04/14/2016, 04/26/2016, 05/07/2016, 05/26/2016, 06/23/2016, 07/06/2016, 07/24/2016, 08/01/2016, 08/10/2016, and the last one was on 08/23/2016. FAMILY HISTORY AND SOCIAL HISTORY The patient has a poor support system. No history of abuse. No history of any substance abuse. Currently, homeless and financial problem. MEDICAL HISTORY Remarkable for history of hypertension, COPD, atrial fibrillation, diabetes, asthma. ALLERGIES Erythromycin, sulfa, omeprazole. SUBSTANCE ABUSE HISTORY None. REVIEW OF SYSTEMS HEENT: Eyes, clear. Ears, nose, mouth, and throat; clear. CARDIOVASCULAR: Unremarkable. RESPIRATORY: Unremarkable. GI: Unremarkable. : Unremarkable. SKIN: Unremarkable. Unit #: [id number] #: [id number] Patient: SHANIKA BAEZA LYMPH NODE: Unremarkable. NEUROLOGIC: Unremarkable. ENDOCRINE: Unremarkable. HEMATOLOGIC: Unremarkable. ALLERGIC/IMMUNOLOGIC: Unremarkable. MUSCULOSKELETAL: Muscle strength and tone, no atrophy or abnormal movement. Gait normal. MENTAL STATUS EXAMINATION CONSTITUTIONAL: Measurement of vital signs; temperature 98.4, pulse 110, respirations 20, oxygen saturation 99%, blood pressure 140/90. Height 5 feet 2 inches. GENERAL APPEARANCE: The patient dressed casually. No facial deformity noted. MUSCULOSKELETAL: Please see above. PSYCHIATRIC EXAMINATION Description of speech; regular rate, normal volume, normal articulation, coherent, and spontaneous. Description of thought process, goal directed. Description of association, intact. Description of abnormal psychotic thinking; the patient denied any hallucination or delusions, but sad and depressed. Reported having suicidal ideation. Description of the patient's judgment; concerning everyday activity, poor. Social situation, poor. Concerning psychiatric condition, poor. Complete mental status examination; oriented in time, place, and person. Recent and remote memory, fair. Attention span and concentration, fair. Language, able to name object and repeat phrases. Fund of knowledge, aware of current event and passive vocabulary intact. Mood and affect, sad and dysphoric. Insight and judgment, fair to poor. ASSETS AND LIABILITIES Assets; the patient articulate, able to take care of her ADL. Liability; history of depression. ADMITTING DIAGNOSES Psychiatric: Major depressive disorder, recurrent, severe, F33.2; anxiety disorder, not otherwise specified, F41.9. Secondary diagnosis: Deferred. Medical diagnoses: Hypertension, chronic obstructive pulmonary disease, history of atrial fibrillation, diabetes mellitus, asthma. Stressors: Psychosocial stressor, homelessness, financial problem. PSYCHIATRIC PLAN AND TREATMENT GOAL 1. Advised to admit the patient on the inpatient unit. Provide safe, supportive, and structured environment. 2. Ordered labs, none. Precaution for self-harm. The patient to resume home medication. If needed, consider further adjustment of medication. Treatment goal to attain euthymic mood, gain insight into her problem, and learn coping skill with a plan to consider discharging the patient as per social insurance administrator. DISCHARGE PLAN Plan to stabilize the patient and consider followup in outpatient program. Unit #: [id number] #: [id number] Patient: SHANIKA BAEZA ESTIMATED LENGTH OF STAY 2 to 5 days. Dictated by... Fabien Hoskins/pelon TD: 08/31/2016 03:06 JOB #: [id number] PSYCHIATRIC ASSESSMENT Page 1 of 1 X Sharath Kingsley MD PSYCHIATRIC ASSESSMENT
== END 2016-08-31 16:48 | disposition home or self-care (01) | DRG 885 ==
LOC: P1S 16:46
DX: F33.2 Major depressive disorder, recurrent severe without psychotic features (principal); R45.851 Suicidal ideations; I48.91 Unspecified atrial fibrillation; F41.9 Anxiety disorder, unspecified; Z88.1 Allergy status to other antibiotic agents; Z88.2 Allergy status to sulfonamides; Z88.8 Allergy status to other drugs, medicaments and biological substances; I10 Essential (primary) hypertension; J44.9 Chronic obstructive pulmonary disease, unspecified; E11.9 Type 2 diabetes mellitus without complications; Z59.0 Homelessness

== ENCOUNTER 2016-11-15 02:00 | Inpatient (IN) | payer MEDICARE, OTHER ==
[~2016-11-15] VITALS: Ht 157.5 cm; Wt 54.4 kg
--- NOTE | ~2016-11-15 | HP ---
Unit #: [id number] #: [id number] Patient: SHANIKA BAEZA [id number] [place] [address] [id number] MR#: [id number] NAME: SHANIKA BAEZA. ROOM: [facility] Age: 51 Sex: F Admission Date: 11/15/2016 : 1965 Attending Physician: Doug Thurman M.D. Admitting Physician: Doug Thurman M.D. Primary Care Physician: Primary Care Physician No HISTORY AND PHYSICAL HISTORY OF PRESENT ILLNESS Shanika is a 51 year old admitted to [address] [place] [address] with depression and verbalizing wanting to hurt herself. She has had numerous admissions to this facility. PAST MEDICAL HISTORY 1. Morbid obesity. 2. High blood pressure. 3. COPD. 4. History of atrial fib. 5. Diabetes mellitus. 6. Asthma. PAST SURGICAL HISTORY Cholecystectomy. ALLERGIES Erythromycin, sulfa, omeprazole. SOCIAL HISTORY She denies cigarettes, alcohol and illicit drug use. FAMILY HISTORY Medically noncontributory. REVIEW OF SYSTEMS CONSTITUTIONAL: No fever or chills. HEENT: Denies any sore throat, ear pain or runny nose. CARDIOVASCULAR: Denies chest pain, irregular heart rhythm or palpitations. CHEST: Denies shortness of breath or cough. No hemoptysis. GASTROINTESTINAL: Denies nausea, vomiting, diarrhea or chronic constipation. ENDOCRINE: Denies history of increased thirst or urination. No recent significant weight loss or gain. GENITOURINARY: Denies dysuria, frequency, or hematuria. SKIN: She does report a wet, red rash under her breasts. HEMATOLOGIC: Denies history of increased bleeding or bruising. MUSCULOSKELETAL: Denies any hot, swollen joints. No generalized muscle pain. NEUROLOGIC: Denies problems with vision or speech. No frequent, severe headaches. No numbness, tingling or weakness in any extremities. Denies loss of bladder or bowel control. Unit #: [id number] #: [id number] Patient: SHANIKA BAEZA CURRENT MEDICATIONS 1. Cardizem CD 120 mg daily. 2. Micronase 2.5 mg daily. 3. Desyrel 100 mg q.h.s. 4. Seroquel 50 mg q.h.s. 5. Neurontin 100 mg t.i.d. 6. Vistaril 25 mg t.i.d. 7. Motrin p.r.n. 8. Milk of Magnesia p.r.n. 9. Maalox p.r.n. 10. Tylenol p.r.n. PHYSICAL EXAMINATION GENERAL: Alert, well-nourished, in no apparent distress. VITAL SIGNS: Blood pressure 152/96, heart rate 96, respirations 16, temperature 98.6. WEIGHT: 120. HEIGHT: 5 feet 2 inches. SKIN: Warm and dry. She does have moist, wet rash under both breasts. Mild odor noted. HEENT: Normocephalic. TMs not viewed. Oral and nasal passages clear. Conjunctivae clear. PERRLA. EOMs intact. NECK: Supple without lymphadenopathy or thyromegaly. HEART: Regular rate and rhythm without murmur. LUNGS: Clear. ABDOMEN: Soft, nontender. : Not done. EXTREMITIES: No evidence of cyanosis, clubbing or edema. Moves all without focal deficit. NEUROLOGICAL: Grossly within normal limits. Cranial Nerves: II: Visual bobo are intact. III, IV AND : Extraocular movements are intact. Pupils are equal, round and reactive to light. V: Facial sensation is grossly normal. VII: Facial movements and expression are normal. VIII: Auditory acuity grossly intact. IX, X: Uvula is midline. Phonation is normal. XI: Patient shrugs shoulders and turns head normally. XII: Tongue protrudes in the midline. Sensory and Motor Function: Sensory and motor sensation is grossly normal. Motor: moves all extremities well. Coordination: Gait is normal. Deep Tendon Reflexes: Intact. IMPRESSION 1. Psychiatric admission. 2. Rash, most likely yeast. RECOMMENDATIONS PSYCHIATRIC: Per psychiatrist. MEDICAL: 1. See no contraindication to participate in facility's activities. 2. Gold Salazar powder to area under her breasts b.i.d. 3. Continue Cardizem CD, Micronase. Monitor blood pressure q. shift. MEDICAL PROGNOSIS Good. MEDICAL CONDITION Stable. Unit #: [id number] #: [id number] Patient: SHANIKA BAEZA Dictated by... Laura Calixto P.A.-C. for Fabien Stephens/miri TD: 11/15/2016 19:41 JOB #: [id number] HISTORY AND PHYSICAL Page 1 of 1 X Laura Calixto HISTORY AND PHYSICAL
--- NOTE | ~2016-11-15 | CO ---
Unit #: [id number] #: [id number] Patient: SHANIKA BAEZA [id number] [place] [address] [id number] I MR#: [id number] NAME: SHANIKA BAEZA ROOM: [facility] Age: 51 Sex: F Admission Date: 11/15/2016 : 1965 Attending Physician: Doug Thurman M.D. Primary Care Physician: Primary Care Physician No Consultation Date: 11/15/2016 CONSULTATION REPORT SUBJECTIVE Shanika is a 51-year-old who had complained of a rash under her breasts at the time of admission. Her admission H and P was done on 11/15/2016 and this area was examined. Please see H and P dated 11/15/2016. Dictated by... Laura Calixto P.A.-C. for Fabien Stephens/pelon TD: 11/15/2016 20:03 JOB #: [id number] CONSULTATION REPORT Page 1 of 1 X Laura Calixto CONSULTATION REPORT
--- NOTE | ~2016-11-15 | PA ---
Unit #: [id number] #: [id number] Patient: SHANIKA BAEZA [id number] [facility] [address] [place] [address] [id number] MR#: [id number] NAME: SHANIKA BAEZA. ROOM: [facility] Age: 51 Sex: F Admission Date: 11/15/2016 : 1965 Date of Assessment: 11/15/2016 Attending Physician: Doug Thurman M.D. Admitting Physician: Doug Thurman M.D. Primary Care Physician: Primary Care Physician No PSYCHIATRIC ASSESSMENT INFORMANT(S) Patient, reliable. [facility] records, reliable. CHIEF COMPLAINT "I feel really depressed." HISTORY OF PRESENT ILLNESS Shanika Baeza is a 51-year-old woman. He was a frequent visitor to this hospital, and he is usually under the care of Dr. Kingsley. She was just released from the [facility] today and went immediately to [facility] reporting some physical conditions and they reported ongoing suicidal ideation. She was transferred here for further admission. PAST PSYCHIATRIC HISTORY Multiple admissions to this facility on a frequent basis, partially to avoid homelessness according to previous reports. FAMILY PSYCHIATRIC HISTORY The patient had no history of family psychiatric illness. SOCIAL HISTORY The patient is homeless and has minimal support, and no financial support except for disability income. PAST MEDICAL HISTORY Hypertension, COPD, A-Fib, diabetes, and asthma. MEDICATIONS Please see MAR. ALLERGIES Erythromycin, sulfa drugs, and Omeprazole. SUBSTANCE ABUSE HISTORY None reported. MENTAL STATUS EXAMINATION The patient presented as a mildly disheveled woman who appeared her stated age. There was a noted resting tremor of her right hand which she described as "psychosomatic." Her mood was reported depressed, but her affect was generally euthymic with a minimal range. She was alert and fully oriented. Her memory and concentration were fair. Her thought processes were apparently goad-directed with no active psychosis. She Unit #: [id number] #: [id number] Patient: SHANIKA BAEZA reported ongoing suicidal ideation and would not contract for safety outside the hospital. Insight and judgment were fair. Fund of knowledge and abstraction fair. ASSETS AND LIABILITIES The patient is familiar with local resources and presents voluntarily for treatment. Liabilities include hopelessness and hospital dependence. ADMITTING DIAGNOSIS AXIS I: Major depression, severe. AXIS II: No diagnosis. AXIS III: Hypertension, COPD, A-Fib, diabetes, asthma. PSYCHIATRIC PLAN/TREATMENT GOALS/DISCHARGE PLANNING The patient was admitted and restarted on her previous medication. A physical examination and laboratory studies will be repeated as indicated. Treatment goals are resolution of SI, improvement in insight, improvement in coping skills. Discharge planning: Follow up with community mental health and primary care physician. ESTIMATED LENGTH OF STAY 5 days. Dictated by... Doug Thurman M.D. PARESH/jose ramon TD: 11/18/2016 08:55 JOB #: [id number] PSYCHIATRIC ASSESSMENT Page 1 of 1 X Doug Thurman MD X PSYCHIATRIC ASSESSMENT
[2016-11-16 12:45] LABS: URINE APPEARANCE CLEAR; URINE BILIRUBIN NEG (NEG); URINE BLOOD NEG (NEG); URINE COLOR YELLOW; URINE GLUCOSE 100 MG/DL (NEG); URINE KETONE NEG (NEG); URINE LEUKOCYTE ESTERASE TRACE (NEG); URINE NITRATE NEG (NEG); URINE PH 6.5 (5-8); URINE PROTEIN NEG (NEG); URINE SPECIFIC GRAVITY 1.013 (1.003-1.035); URINE UROBILINOGEN 0.2 MG/DL (NEG)
[2016-11-16 12:54] LABS: URBCS1 AUWI 0-2 /[HPF] (0-2); URINE BACTERIA AUWI NEG (NEGATIVE); URINE SQUAMOUS EPITHELIAL CELL NONE SEEN /[HPF]
[2016-11-16 13:23] LABS: AMPHETAMINE NEG (NEG); BARBITURATES NEG (NEG); BENZODIAZEPINES NEG (NEG); COCAINE NEG (NEG); MARIJUANA NEG (NEG); OPIATES NEG (NEG); TRICYCLIC ANTIDEPRESSANTS POS (NEG); U METHADONE NEG (NEG)
== END 2016-11-18 16:55 | disposition home or self-care (01) | DRG 881 ==
LOC: P2L 05:05
PROVIDERS: Psychiatry & Neurology Psychiatry
DX: F32.9 Major depressive disorder, single episode, unspecified (principal); I48.91 Unspecified atrial fibrillation; R45.851 Suicidal ideations; I10 Essential (primary) hypertension; J44.9 Chronic obstructive pulmonary disease, unspecified; E11.9 Type 2 diabetes mellitus without complications; B37.9 Candidiasis, unspecified; Z90.49 Acquired absence of other specified parts of digestive tract; Z88.1 Allergy status to other antibiotic agents; Z88.2 Allergy status to sulfonamides; Z88.8 Allergy status to other drugs, medicaments and biological substances
CPT/HCPCS: 80307; 81003